=== PATIENT | male | born 1975 | race African-American/Black ===

== ENCOUNTER 2017-10-23 10:27 | Emergency (ER) | payer SELFPAY ==
--- NOTE | 2017-10-23 12:56 | RAD ---
THREE VIEWS RIGHT HAND: DATE: 10/23/17. HISTORY: Right hand injury. FINDINGS: There is no evidence of a fracture, dislocation, or other osseous abnormality involving the right son d. IMPRESSION: No acute osseous abnormality. POS: PEDRO LUIS
== END 2017-10-23 11:14 | disposition home or self-care (01) ==
LOC: ERS 10:27
DX: S60.221A Contusion of right hand, initial encounter (principal); I10 Essential (primary) hypertension; F17.210 Nicotine dependence, cigarettes, uncomplicated; W22.01XA Walked into wall, initial encounter

== ENCOUNTER 2018-05-25 03:54 | Emergency (ER) | payer BC, SELFPAY ==
[2018-05-25] MEDS ORDERED: Metoclopramide HCl 10 MG/2 ML VIAL ONE (04:31)
[2018-05-25] MEDS ORDERED: diphenhydrAMINE 50 MG/ML VIAL ONE (04:31)
[2018-05-25] MEDS ORDERED: Ondansetron PF 4 MG/2 ML Vial ONE (04:51)
[2018-05-25 04:53] LABS: #Basophils 0.1 thou/uL (0.0-0.2); #Eosinphils 0.1 thou/uL (0.0-0.7); #Lymphocytes 2.8 thou/uL (1.20-3.40); #Monocytes 0.6 thou/uL (0.11-0.59); #Neutrophils 2.8 thou/uL (1.40-6.50); %Basophils 2.3 % (0.0-1.0); %Lymphocytes 43.5 % (21.0-51.0); %Monocytes 9.5 % (0.0-10.0); %Neutrophils 43.8 % (42.0-75.0); Hemoglobin 15.6 g/dL (14.0-18.0); Mean Corpuscular HGB CONC 30.9 g/dL (32.0-36.0); Mean Corpuscular Hemoglobin 29.9 pg (27.0-31.0); Mean Corpuscular Volume 96.7 fL (78.0-98.0); Mean Platelet Volume 9.2 fL (7.4-10.4); Platelet Count 279 thou/uL (130-400); RBC Distribution Width 11.7 % (11.5-14.5); Red Blood Cell (RBC) Count 5.21 mill/uL (4.70-6.10); White Blood Cell (WBC) Count 6.4 thou/uL (4.8-10.8)
[2018-05-25 04:57] LABS: PTT 26.8 SEC (22.9-36.1); Prothrombin Time 13.5 SEC (12.0-14.7)
[2018-05-25 05:13] LABS: ALT (SGPT) 23 U/L (8-55); AST (SGOT) 38 U/L (5-34); Alkaline Phosphatase 106 U/L (40-150); Anion Gap 15 mmol/L (10-20); BUN (Urea Nitrogen) 9 mg/dL (8.9-20.6); Bilirubin, Total 0.5 mg/dL (0.2-1.2); Calc. Creatinine Clearance 0 mL/min (70-130); Calcium 9.5 mg/dL (7.8-10.44); Carbon Dioxide 27 mmol/L (22-29); Chloride 108 mmol/L (98-107); Estimated GFR-MDRD 85; Globulin 3.3 g/dL (2.4-3.5); Glucose 87 mg/dL (70-105); Potassium 4.1 mmol/L (3.5-5.1); Protein, Total 7.3 g/dL (6.0-8.3); Sodium 146 mmol/L (136-145)
[2018-05-25] MEDS ORDERED: Lisinopril 10 MG TAB ONE (05:35)
[2018-05-25] MEDS ORDERED: Acetaminophen 500 MG TAB ONE (05:35)
--- NOTE | 2018-05-25 07:34 | CT ---
CTA OF THE HEAD WITH AND WITHOUT CONTRAST: INDICATION: History of headache and neck pain and stiffness. COMPARISON: None. FINDINGS: There is an area of subcortical hypodensity involving the left frontal lobe on image 23 of series 2 w ithout appreciable enhancement is nonspecific. Additional focus of subcortical hypodensity is seen w ithin the right frontal lobe on image 20 of series 2. There are small areas of hypodensity involving the subinsular cortex on the left on image 19 and image 18 of series 2. No acute intracranial hemor rhage or hydrocephalus is present. Septum pellucidum and third ventricle are midline. No hemodynamically significant stenosis, occlusion, or aneurysmal formation is evident. There are ro bust posterior communicating arteries bilaterally. IMPRESSION: 1. Nonspecific small areas of subcortical white matter hypodensity may reflect chronic small-vessel white matter ischemic change. These areas have grown slightly more pronounced in appearance from the 2014 CT examination from [facility]. Would recommend consideration for a foll owup MRI of the brain without and without contrast for further characterization. No overt abnormal e nhancement seen within this region on the postcontrast images. 2. No hemodynamically significant stenosis, occlusion, or aneurysmal formation demonstrated. 3. No acute intracranial hemorrhage or hydrocephalus. POS: BH
== END 2018-05-25 06:50 | disposition home or self-care (01) ==
LOC: ERS 03:54
DX: I10 Essential (primary) hypertension (principal); R51 Headache; F17.210 Nicotine dependence, cigarettes, uncomplicated
CPT/HCPCS: 36415; 70496; 80053; 85025; 85610; 85730; 93005; 96365; 96375; J1200; J2405; J2765

== ENCOUNTER 2018-11-30 23:36 | Inpatient (IN) | payer BC ==
[2018-11-30] MEDS ORDERED: niCARdipine 20MG In NaCl 20 MG/200 ML BAG ONE (23:57)
--- NOTE | 2018-12-01 | CT ---
CT head noncontrast HISTORY: Altered mental status. Headache. COMPARISON: 05/25/2018. FINDINGS: Centered at the superior aspect of the right basal ganglia is a large very heterogeneous an d lobulated predominantly hyperdense fluid collection measuring up to 6.9 cm length by 2.5 cm width. It is surrounded by vasogenic edema and diffuse cerebral edema. Diffuse effacement of the vent ricular system. Leftward shift of the septum pellucidum by approximately 4 mm. IMPRESSION: Large acute right basal ganglia hematoma. Consistent with hypertensive etiology. Severe diffuse cerebral edema. Findings were called to Dr. Meza in the emergency department at 2354 hours. Code CR.
[2018-12-01 00:03] LABS: #Basophils 0.1 thou/uL (0.0-0.2); #Lymphocytes 2.2 thou/uL (1.20-3.40); #Monocytes 0.9 thou/uL (0.11-0.59); #Neutrophils 4.5 thou/uL (1.40-6.50); %Basophils 1.3 % (0.0-1.0); %Eosinophils 0.5 % (0.0-10.0); %Lymphocytes 28.9 % (21.0-51.0); %Monocytes 11.6 % (0.0-10.0); %Neutrophils 57.7 % (42.0-75.0); Hemoglobin 14.7 g/dL (14.0-18.0); Mean Corpuscular HGB CONC 32.4 g/dL (32.0-36.0); Mean Corpuscular Hemoglobin 30.1 pg (27.0-31.0); Mean Platelet Volume 9.9 fL (7.4-10.4); Platelet Count 183 thou/uL (130-400); RBC Distribution Width 11.7 % (11.5-14.5); Red Blood Cell (RBC) Count 4.87 mill/uL (4.70-6.10); White Blood Cell (WBC) Count 7.7 thou/uL (4.8-10.8)
[2018-12-01] MEDS ORDERED: Midazolam HCl 5 mg/ml Vial ONE (00:05)
[2018-12-01] MEDS ORDERED: Succinylcholine Chloride 20 MG/ML 10 ml SYRINGE FS ONE (00:05)
[2018-12-01 00:14] LABS: ALT (SGPT) 20 U/L (8-55); AST (SGOT) 28 U/L (5-34); Albumin 3.8 g/dL (3.5-5.0); Alkaline Phosphatase 97 U/L (40-150); Anion Gap 11 mmol/L (10-20); BUN (Urea Nitrogen) 17 mg/dL (8.9-20.6); Bilirubin, Total 0.4 mg/dL (0.2-1.2); CK (CPK) 220 U/L (30-200); Calc. Creatinine Clearance 0 mL/min (70-130); Calcium 8.9 mg/dL (7.8-10.44); Carbon Dioxide 24 mmol/L (22-29); Chloride 110 mmol/L (98-107); Estimated GFR-MDRD Greater than 90; Globulin 2.8 g/dL (2.4-3.5); Glucose 104 mg/dL (70-105); Potassium 3.9 mmol/L (3.5-5.1); Protein, Total 6.6 g/dL (6.0-8.3); Sodium 141 mmol/L (136-145)
[2018-12-01] MEDS ORDERED: fentaNYL Citrate/PF 2,000 MCG in Sodium Chloride 0.9% 60 ML IV SCH ×2 (00:17→02:47)
[2018-12-01] MEDS ORDERED: Dexamethasone 10 MG/ML VIAL ONE (00:34)
[2018-12-01 00:35] LABS: PTT 28.2 SEC (22.9-36.1); Prothrombin Time 12.7 SEC (12.0-14.7)
[2018-12-01] MEDS ORDERED: Fentanyl 100 MCG/2 ML VIAL ONE (00:35)
[2018-12-01 00:40] LABS: Lactic Acid 1.1 mmol/L (0.5-2.2)
[2018-12-01] MEDS ORDERED: Propofol 500 MG/50 ML VIAL ONE (00:43)
[2018-12-01] MEDS ORDERED: Propofol 1,000 MG/100 ML VIAL IV ONE (00:43)
[2018-12-01 00:54] LABS: Bilirubin Negative (Negative); Blood, Urine Negative (Negative); Clarity Clear (Clear); Glucose, Urine (Dipstick) Normal (Negative); Leukocyte Negative Leu/uL (Negative); Nitrite Negative (Negative); Protein, Urine (Dipstick) 10 mg/dL (Neg-Trace); Urobilinogen Normal mg/dL (Less than 2)
[2018-12-01 01:04] LABS: Amphetamine Not Detected (NotDetected); Barbiturates Screen Not Detected (NotDetected); Benzodiazepine Screen Not Detected (NotDetected); Cocaine Metabolite Screen Not Detected (NotDetected); Medtox Control Line Valid? VALID (VALID); Medtox Reader # READER 1; Methadone Not Detected (NotDetected); Methamphetamine Not Detected (NotDetected); Opiate Screen Not Detected (NotDetected); Oxycodone Screen Not Detected (NotDetected); Phencyclidine (PCP) Not Detected (NotDetected); THC/Cannabinoid Screen Not Detected (NotDetected); Tricyclic Screen Not Detected (NotDetected)
[2018-12-01] MEDS ORDERED: Ondansetron ODT 4 MG TAB SL PRN (02:11)
[2018-12-01] MEDS ORDERED: Ondansetron PF 4 MG/2 ML Vial IVP PRN (02:11)
[2018-12-01] MEDS ORDERED: Propofol 1,000 MG/100 ML VIAL IV PRN (02:12)
[2018-12-01] MEDS ORDERED: Propofol BOLUS 1,000 MG/100 ML VIAL IV PRN ×2 (02:12→02:47)
[2018-12-01] MEDS ORDERED: Lactated Ringer's 1,000 ML IV SCH (02:15)
[2018-12-01] MEDS ORDERED: Acetaminophen 325 MG TAB PO PRN (02:28)
[2018-12-01] MEDS ORDERED: Acetaminophen 650 MG Suppository PR PRN (02:28)
[2018-12-01] MEDS ORDERED: Ventilator Sedation Protocol 1 EACH FS SCH (02:30)
[2018-12-01] MEDS ORDERED: DISCONTINUE PREVIOUS NARCOTIC PAIN MEDICATIONS AND BENZODIAZEPINES FS SCH (02:47)
[2018-12-01] MEDS ORDERED: Fentanyl BOLUS 250 ML IVPB PRN (02:47)
[2018-12-01] MEDS ORDERED: Lorazepam 2 MG/ML VIAL SLOW IVP PRN (02:47)
[2018-12-01] MEDS: niCARdipine 25 MG in Sodium Chloride 0.9% 250 ML 240 ML IVPB PRN ×2 (04:09→06:10)
[2018-12-01] MEDS: Propofol 1,000 MG/100 ML VIAL IV PRN ×4 (05:12→21:53)
[2018-12-01 06:33] LABS: Anion Gap 15 mmol/L (10-20); BUN (Urea Nitrogen) 14 mg/dL (8.9-20.6); Calc. Creatinine Clearance 172 mL/min (70-130); Calcium 9.5 mg/dL (7.8-10.44); Carbon Dioxide 20 mmol/L (22-29); Chloride 108 mmol/L (98-107); Estimated GFR-MDRD Greater than 90; Glucose 137 mg/dL (70-105); Potassium 3.5 mmol/L (3.5-5.1); Sodium 139 mmol/L (136-145)
[2018-12-01 06:39] LABS: Hemoglobin 15.5 g/dL (14.0-18.0); Lymphocytes 4 % (21-51); MDiff Complete? YES; Mean Corpuscular HGB CONC 31.5 g/dL (32.0-36.0); Mean Corpuscular Hemoglobin 29.6 pg (27.0-31.0); Mean Corpuscular Volume 93.9 fL (78.0-98.0); Mean Platelet Volume 10.3 fL (7.4-10.4); Monocytes 2 % (0-10); Neutrophil 94 % (42-75); Platelet Count 178 thou/uL (130-400); Platelet Morphology Comment Appears Adequate; RBC Distribution Width 11.7 % (11.5-14.5); RBC Morphology Normal; Red Blood Cell (RBC) Count 5.24 mill/uL (4.70-6.10); White Blood Cell (WBC) Count 14.2 thou/uL (4.8-10.8)
--- NOTE | 2018-12-01 07:09 | CON ---
DATE OF CONSULTATION: HISTORY OF PRESENT ILLNESS: Mr. Olivier is a 42-year-old gentleman who was brought to the emergency department this morning with stroke like symptoms. The patient's family states that he was last known normal at 7:00 a.m. this morning. The patient stated he had a fall at about 9:00 a.m. this morning, however, the patient's family found him down this evening. Unable to get him up and called EMS. EMS arrived. He was A and O x3, but had left-sided upper and lower extremity deficits. In transport, the patient's blood pressure, systolic, was 202/119, 30 of labetalol was given. Speech started to deteriorate en route. Per ER doctor, the patient was able to follow commands on the right when he was 1st brought in. Speech was poor and started to have some respiratory dysfunction. He was intubated. CT of the head was performed showing a large intraparenchymal hemorrhage. Neurosurgery was consulted. When I arrived, the patient has been intubated and heavily sedated. He is resisting restraints significantly on the right side, right upper and lower extremities, moving, continues to not follow commands, but has good strength in the right upper and lower extremities and it is hard to restrain him. There is no movement on the left side. He has a gag reflex. His pupils are round and reactive, the left is slightly larger than the right. His blood pressure was in the 190s when I arrived. Nicardipine has been started and it is now in the 150s. REVIEW OF SYSTEMS: Unable to obtain the review of systems. PAST MEDICAL HISTORY: Consists of hypertension. The patient is noncompliant with medications. PAST SURGICAL HISTORY: Unable to obtain. SOCIAL HISTORY: The patient drinks socially. Denies drug use. Currently uses tobacco. Smokes cigarettes. Lives at home with family. ALLERGIES: NO KNOWN DRUG ALLERGIES. MEDICATIONS: Lisinopril. PHYSICAL EXAMINATION: VITAL SIGNS: Blood pressure 183/92, heart rate 65, respirations 20, temperature 97.3, O2 saturations 95% on room air. CONSTITUTIONAL: The patient is awake. He is afebrile. He is hypertensive. HEENT. Head is normocephalic and atraumatic. Pupils are round and reactive to light. Left is slightly larger than the right. Moist mucous membranes. RESPIRATIONS: The patient is on the ventilator, but symmetric chest rise. EXTREMITIES: The patient has no motion in left upper or lower extremity even to noxious stimuli. Right upper and lower extremities, he is moving both with normal range of motion. Not following commands, but good strength. He has normal range of motion in hip and knee. Good medical territory manager strength. NEUROLOGIC: The patient is awake. The patient is GCS 10 . He has no motor reactions on the left upper or lower extremity. Movement in right upper and lower extremities with normal range of motion and strength. He has a positive gag reflex. Pupils are reactive to light. Left is slightly larger than the right. Positive doll's eyes. Opens eyes spontaneously. IMAGING: CT of the brain, large acute right basal ganglial hematoma consistent with hypertensive etiology with diffuse edema. ASSESSMENT AND PLAN: Mr. Olivier is a 42-year-old male with a hypertensive intraparenchymal hemorrhage. He is going to be admitted to the hospital. We are going to bring his blood pressure down ideally under 140, get regular neuro checks. We will get a repeat CT in the morning. The patient is not on any blood thinners. Job ID: [id number]
--- NOTE | 2018-12-01 07:20 | HP ---
CODE STATUS: Full code. TIME OF EVALUATION: 1:00 a.m. CHIEF COMPLAINT: Stroke like symptoms. HISTORY OF PRESENT ILLNESS: This is a 42-year-old male patient with past medical history of HTN, non compliance. The patient came to the hospital after having stroke like symptoms. As per EMS report, patient informed them on arrival to the scene that he had fell around 9:00 a.m. with no loss of consciousness at that time. The family called 911 tonight when the patient was found down in his home and was initially hypertensive with blood pressure of 202 /119 with left-sided deficit, initially alert and oriented, answering questions. En route, the patient's speech changed and then became unable to speak. The patient labetalol, was complaining of chest pain and headache. Last time seen normal around 7:00 a.m. The patient mentation was deteriorating in the ER. The patient was unable to protect airways and got intubated. The patient was sedated. Blood pressure was still high, started on Cardene drip. CT showed intracranial hemorrhage. Neurosurgery has been called and the plan is to admit the patient to the floor. Final discussion is still pending. We will follow recommendations from Neurosurgery. REVIEW OF SYSTEMS: Unable to obtain. The patient is intubated and sedated. PAST MEDICAL HISTORY: The patient has a history of hypertension, being noncompliant. PAST SURGICAL HISTORY: No surgical history. PSYCHIATRIC HISTORY: No previous psych history. SOCIAL HISTORY: The patient drinks socially. Denies drug use. Smokes cigarettes. The patient uses drugs, lives at home. No smoking history. It has been reported the patient had used PCP in the past, that part of history is not totally clear at this point. KNOWN ALLERGIES: No known drug allergies. REPORTED MEDICATIONS: Unable to obtain. PHYSICAL EXAMINATION: VITAL SIGNS: On presentation, blood pressure 183/92 with heart rate 65, respiratory rate was 20, temperature 97.3, oxygen saturation 95% on mechanical ventilation. Blood pressure got down after sedation and Cardene drip. GENERAL APPEARANCE: The patient is intubated and sedated by the time of my examination. He is getting oxygenation and is moving, does not follow commands. The left side is compromised with hemiplegia. HEENT: The patient has exophthalmos, moist oral mucosa. Anicteric. No JVD. RESPIRATORY: Bilateral air entry. No rales. No wheezes. Symmetric expansion. CARDIOVASCULAR: The patient is hypertensive. Normal rate, regular rhythm. No murmurs. No gallop. No edema. ABDOMEN: Soft. Normal bowel sounds. MUSCULOSKELETAL: Baseline range of motion and strength. SKIN: Warm and intact. No pallor. No rash. No redness. Capillary refill seems to be intact. NEURO: The patient has left-sided weakness and is sedated, occasionally agitated when he runs out of sedation. PSYCH: Unable to obtain. The patient is intubated, sedated. IMAGING: EKG was reviewed. The patient has normal sinus rhythm with a rate of 94 with no ectopics. Conduction is normal. WA 180, QRS 74, QT corrected 452. Radiology interpretation, head CT showed large acute right basal ganglia hematoma consistent with hypertensive etiology. Severe diffuse cerebral edema. Chest, lungs appear not well oxygenated. Findings consistent with some pulmonary vascular congestion. LABORATORY DATA: Reviewed. The patient has white count 7.7, hemoglobin 14.7, MCV 93, platelet count 183. Coagulation, PT 12.7, INR 1.0, PTT 28.2. Chemistry; sodium 141, potassium 3.9, chloride 110, carbon dioxide 24, anion gap 11, BUN 17, creatinine 0.95, GFR greater than 90, glucose 104, calcium 8.9. LFTs were negative. CK 200. Troponin negative x1. Serum total protein 6.6. Urine was done, was negative. Drug screen was done, was negative. ASSESSMENT AND PLAN: The patient will be placed in the hospital with follow medical problems. 1. Hypertensive emergency with intracranial bleed. The patient has been sedated , has been placed on Cardene drip. He is currently intubated, will be in ICU. We will continue to control blood pressure overnight. cardene drip, improve sedation. 2. Intracranial bleeding. This problem is being followed by Neurosurgery. We will follow recommendations. rest as above 3. Respiratory failure with inability to protect airway secondary to acute hemorrhagic stroke. The patient got intubated, has been on the vent, seems to be stable at this point. Consult Pulmonary for further recommendations. 4. Morbidly obese. The patient is to lose weight. 5. Mildly elevated CK. This is likely secondary to being lying on the floor for few hours, not really significant. We will monitor and treat accordingly. 6. Acute encephalopathy secondary to intracranial bleed. We will treat underlying condition. 7. History of noncompliance. This needs to be addressed with the patient if the patient recovers from current insult. 8. Deep venous thrombosis prophylaxis. 9. Seizure prevention. The patient has been started on Keppra by Neurosurgery. Critical care time> 35 min use in bedside assessment, stabilization of patient, medication reconciliation, review and elaboration of records Job ID: [id number] MTDD
[2018-12-01 07:27] LABS: Actual Bicarbonate (HCO3a) 21.6 mEq/L (22-28); Base Excess (BEa) -0.7 mEq/L (-2.0 to +3.0); CO2 Tension 30.1 mmHg (35.0-45.0); Calcium, Ionized 1.21 mmol/L (1.12-1.30); Carboxyhemoglobin (COHb) 1.8 gm% (0.0-3.0); Hemoglobin (Hb) 15.8 g/dL (14.0-18.0); O2 Tension (PaO2) 64.9 mmHg (80.0-100.0); Potassium - ABG Lab 3.43 mmol/L (3.70-5.30); pH, Arterial 7.47 (7.35-7.45)
--- NOTE | 2018-12-01 07:36 | CT ---
CT BRAIN WITHOUT CONTRAST: Date: 12/01/18 INDICATION: Follow-up intraparenchymal hemorrhage. COMPARISON: Prior exam dated 11/30/18 at 2351 hours. FINDINGS: The intraparenchymal hemorrhage, when accounting for slight differences in plane of imaging, is relat ively stable in size. It previously measured 6.9 x 2.5 cm, now measures 6.0 x 3.1 cm with surrounding vasogenic edema. The degree of vasogenic edema is more pronounced than on the prior exam. There is w orsening right to left midline shift of 7 mm. Remote lacunar infarction involving the left caudate he ad is stable. No hydrocephalus is evident. Basilar cisterns are patent. Skull and extracranial soft t issues appear within normal limits. IMPRESSION: Worsening vasogenic edema surrounding an intraparenchymal hematoma centered within the region of righ t basal ganglia. There is worsening right to left midline shift at 7 mm. Findings corresponded with PEDRO LUIS [place], neurosurgery, via [facility], at 0517 hours on 0 12/01/18. CODE CR. POS: ROHAN
[2018-12-01 07:55] LABS: ALV-art Gradient 253.975 (0-20); Puncture Site L.R.
--- NOTE | 2018-12-01 08:06 | RAD ---
RADIOGRAPH CHEST 1 VIEW: DATE: 12/01/2018 TIME: 12:56 AM HISTORY: 42-year-old male status post intubation COMPARISON: 06/24/2015 FINDINGS: New endotracheal tube with distal tip 3.5 cm superior to kye. New esophagogastric tube, distal tip outside [id number]. Very low lung volumes. Increased interstitial markings diffusely. No pneumothorax identified. Patchy streaky pulmonary densities at left lung base. Nonspecific. IMPRESSION: 1. Status post intubation. 2. Nonspecific pulmonary densities at left base: Atelectasis versus aspiration versus pneumonia.
[2018-12-01] MEDS: Famotidine/PF 20 mg/2ml Vial SLOW IVP SCH ×2 (09:29→21:53)
--- NOTE | 2018-12-01 10:55 | PRG ---
DATE OF SERVICE: 12/01/2018 I personally examined the patient, reviewed imaging records and agreed with notes of Hien Ray PA-C, dated on 11/30/2018. Briefly, Soy Howard is a 42-year-old gentleman, who was found down by his family, brought to the emergency department, where a CT examination revealed an intraparenchymal hemorrhage in the right base and centered in the right basal ganglia. There was no extension to the cortical surface. There was mass effect from the hemorrhage, but the basal cisterns were open. There was some right-to- left shift. It is very purposeful in the emergency department. He began having some slurred speech. He was intubated and after intubation, was fighting his restraints purposefully. Overnight, he has been started on propofol and fentanyl, both cloud the neurological examination. Nicardipine drip was administered to keep his blood pressure under control. I have seen him in this morning and 125 mcg of fentanyl running in and 30 mL of propofol. In spite of all the sedation medication, he does respond to stimulus to the chest. The right is moving and the left did not move very much for me. Given the shape, location, and size of the hemorrhage, I think Mr. Olivier is likely to survive this. I would consider decompressive craniectomy for deteriorating neurological examination, clot evacuation, in my view, would not offer him significant neurological improvement, but could be contemplated if we are going to proceed with surgery. For now, I am going to recommend that we have serial neurological examinations done without the clotting influence of fentanyl. If he localizes briskly and fights all his restraints, then I think he has enough neurological function that we can continue to follow. We are going to have to avoid any hyponatremia and for worsening neurological examination, we could consider ICP pressure monitor or hyperosmolar therapy. If we can get to 72 hours, then I think we will get through the window of the maximal vasogenic edema. Job ID: [id number] [facility]
[2018-12-01] MEDS: niCARdipine 50 MG in Sodium Chloride 0.9% 250 ML 230 ML IVPB PRN ×2 (11:06→20:02)
[2018-12-01] MEDS: Sodium Chloride 0.9% 1,000 ML IV SCH ×2 (11:06→17:50)
--- NOTE | 2018-12-01 12:51 | CON ---
DATE OF CONSULTATION: 12/01/2018 CONSULTING PHYSICIAN: Zacharyist . REASON FOR CONSULTATION: Ventilator management. The following encompasses 45 minutes of critical care time. HISTORY OF PRESENT ILLNESS: This is a 42-year-old male, who presented to the hospital with acute onset of left-sided weakness. He was found to be hypertensive with a blood pressure systolic over 200. He was found to have a right parietal parenchymal hemorrhage. He was intubated due to deteriorating mental status. Nurse tells me earlier this morning he was moving his right side without difficulty and was writing notes, but he has subsequently been sedated for agitation. Neurosurgery has seen the patient, but as of yet has not put any type of drain. PAST MEDICAL HISTORY: Hypertension. PAST SURGICAL HISTORY: None. PSYCHIATRIC HISTORY: None. SOCIAL HISTORY: Social drinker. Smokes cigarettes. MEDICATIONS: Prior to admission, not known. ALLERGIES: UNKNOWN. REVIEW OF SYSTEMS: Unobtainable because the patient is currently intubated. PHYSICAL EXAMINATION: VITAL SIGNS: Temperature 98.3, pulse 87, blood pressure 138/71, and O2 saturation 97%. Weight 275 pounds. HEENT: Pupils are reactive. Sclerae are anicteric. Oropharynx clear. NECK: No adenopathy or JVD. CHEST: Clear without wheezing or rhonchi. CARDIAC: S1 and S2 regular without audible murmur. ABDOMEN: Soft, nontender, and nondistended. EXTREMITIES: No clubbing, cyanosis, or edema. DIAGNOSTIC DATA: CT of the head shows a large right parietal hemorrhage, which is enlarged and there is midline shift. White blood cell count is 14.2, hematocrit 49.3, and platelet count 178. PH of 7.47, pCO2 of 30, pO2 of 65 on SIMV rate 24, tidal volume 500, PEEP 5, pressure support 10, and FiO2 of 50%. Sodium 135, potassium 3.5, chloride 108, CO2 of 20, BUN 14, creatinine 0.9, and glucose 137. Chest x-ray demonstrates ET tube in proper position. There is some component of pulmonary edema bilaterally. ASSESSMENT: 1. Right parenchymal brain hemorrhage. 2. Hypertension. 3. Acute respiratory failure, requiring mechanical ventilation. PLAN: 1. Continue supportive care with mechanical ventilation. 2. Nicardipine drip for blood pressure control with goal systolic less than 140. 3. Further input from Neurosurgery. 4. DVT prophylaxis with Pepcid. 5. GI prophylaxis with SCDs given that the patient cannot take anticoagulation. 6. Prognosis guarded. Job ID: [id number]
--- NOTE | 2018-12-01 13:23 | PDOC.EVN ---
Event Note - Event Note Event Note: Seen and examined. Sedated and mechanically ventilated. Still on cardene infusion. Continue current treatment.
[2018-12-02] MEDS: Propofol 1,000 MG/100 ML VIAL IV PRN ×2 (03:14→23:18)
[2018-12-02] MEDS: niCARdipine 50 MG in Sodium Chloride 0.9% 250 ML 230 ML IVPB PRN ×3 (05:22→23:18)
[2018-12-02] MEDS: Morphine 2 MG/ML SYRINGE SLOW IVP PRN ×2 (05:26→10:26)
[2018-12-02 07:22] LABS: Anion Gap 12 mmol/L (10-20); BUN (Urea Nitrogen) 11 mg/dL (8.9-20.6); Calc. Creatinine Clearance 176 mL/min (70-130); Calcium 9.3 mg/dL (7.8-10.44); Carbon Dioxide 21 mmol/L (22-29); Chloride 113 mmol/L (98-107); Estimated GFR-MDRD Greater than 90; Glucose 120 mg/dL (70-105); Potassium 3.4 mmol/L (3.5-5.1); Sodium 143 mmol/L (136-145)
[2018-12-02 07:23] LABS: Actual Bicarbonate (HCO3a) 18.8 mEq/L (22-28); Base Excess (BEa) -2.5 mEq/L (-2.0 to +3.0); Calcium, Ionized 1.19 mmol/L (1.12-1.30); Carboxyhemoglobin (COHb) 1.8 gm% (0.0-3.0); Hemoglobin (Hb) 16.1 g/dL (14.0-18.0); O2 Tension (PaO2) 66.1 mmHg (80.0-100.0); Potassium - ABG Lab 3.33 mmol/L (3.70-5.30); pH, Arterial 7.49 (7.35-7.45)
[2018-12-02 07:28] LABS: ALV-art Gradient 187.475 (0-20); CO2 Tension 25.3 mmHg (35.0-45.0); Puncture Site RRA
--- NOTE | 2018-12-02 07:45 | PRG ---
DATE OF SERVICE: 12/02/2018 I saw Mr. Olivier in his hospital room this morning. He was intubated. The T-max of 99.4. His blood pressures have been in the 140s to 150s. Propofol is running at 15 mL. In spite of this sedating medication, he follows commands. He clearly raised his thumb on the right for me. He wiggled his fingers and toes, and he understood language. The left side was not moving for me today. CT scan was ordered this morning, which I reviewed. The size of the clot is the same. There is some surrounding vasogenic edema that may have increased slightly. I do not see a sodium level from this morning. Mr. Olivier should not be getting any hypotonic fluids at all. We should keep his sodium in the normal to high normal range. I do not see any indication for surgery as surgical evacuation of a basal ganglia hemorrhage without cortical extension, does not typically produce any improved results compared to medical management and there is risk of the operation. If, however, there is progressive neurological decline, surgery is a life-saving maneuver. Job ID: [id number] MTDD
--- NOTE | 2018-12-02 08:09 | CT ---
PRELIMINARY REPORT/[facility]/EMERGENCY AFTER HOURS PROCEDURE: EXAM: CT Head Without Contrast EXAM DATE/TIME: 12/02/2018 4:17 AM CLINICAL HISTORY: 42 years old, male; Condition or disease; Patient HX: F/u iph TECHNIQUE: Imaging protocol: Computed tomography of the head without contrast. COMPARISON: CT Brain WO Con 12/01/2018 4:57 AM FINDINGS: Brain: This stable large right-sided intraparenchymal hematoma with surrounding edema. Diffuse cerebral edema is also unchanged compared to the prior study. Midline shift: 9 mm leftward midline shift is not significantly changed compared to the prior study allowing for differences in technique and position. Ventricles: Normal. No ventriculomegaly. Bones/joints: Unremarkable. No acute fracture. Sinuses: Visualized sinuses are unremarkable. No fluid levels. Mastoid air cells: Visualized mastoid air cells are well aerated. Orbits: Bilateral globe proptosis. No extraocular muscle thickening. Soft tissues: Unremarkable. IMPRESSION: 1. This stable large right-sided intraparenchymal hematoma with surrounding edema. 2. 9 mm leftward midline shift is not significantly changed compared to the prior study allowing for differences in technique and position. 3. Diffuse cerebral edema is also unchanged compared to the prior study. 4. Bilateral globe proptosis. No extraocular muscle thickening. Thank you for allowing us to participate in the care of your patient. Dictated and Authenticated by: Gallo Chaves MD 12/02/2018 4:36 AM Central Time ([place] & [place]) FINAL REPORT: CT BRAIN: PROVIDED CLINICAL HISTORY: Follow-up intracranial hemorrhage. COMPARISON: 12/01/2018. FINDINGS/IMPRESSION: Agree with the preliminary interpretation given by GLADYS. Transcribed Date/Time: 12/02/2018 8:18 AM
[2018-12-02] MEDS: Sodium Chloride 0.9% 1,000 ML IV SCH (09:04)
[2018-12-02] MEDS: Famotidine/PF 20 mg/2ml Vial SLOW IVP SCH ×2 (09:12→20:55)
--- NOTE | 2018-12-02 10:00 | PRG ---
DATE OF SERVICE: 12/02/2018 TIME SPENT: 35 minutes of critical care time. SUBJECTIVE: The patient remains intubated on mechanical ventilation. He is banging on the bed indicating that he wants his tube out. OBJECTIVE: VITAL SIGNS: His temperature is 99.4, blood pressure 156/94, pulse 84, O2 saturation 95%. GENERAL: He is currently on propofol and nicardipine. HEENT: Pupils reactive. Extraocular movements intact. Oropharynx clear. NECK: No adenopathy. No JVD. LUNGS: Clear anteriorly. CARDIAC: S1, S2. Regular. ABDOMEN: Soft and nontender. EXTREMITIES: No edema. LABORATORY DATA: Sodium 143, potassium 3.4, chloride 113, CO2 of 21, BUN 11, creatinine 0.9, glucose 120. PH of 7.49, pCO2 of 25, and pO2 of 66 on SIMV rate of 24, tidal volume 500, PEEP 5, pressure support 10, FiO2 40%. White blood cell count 14.2 hematocrit 49.3, and platelet count 178. ASSESSMENT: 1. Right parietal intraparenchymal bleed. 2. Respiratory failure requiring mechanical ventilation-secondary to the patient being obtunded when he was admitted. 3. Hypertensive emergency. PLAN: We will go ahead and extubate the patient and see how he does. He is continuing hypertonic IV fluids per the Neurosurgical team. We will continue to monitor his chemistry. Job ID: [id number]
[2018-12-02] MEDS ORDERED: cloNIDine 0.1 MG TAB PO PRN (10:16)
[2018-12-02] MEDS ORDERED: PROPOFOL 200 MG/20 ML VIAL ONE (10:24)
[2018-12-02] MEDS ORDERED: Dexamethasone 20 MG/5 ML VIAL ONE (10:24)
[2018-12-02] MEDS ORDERED: Vecuronium 10 MG VIAL ONE (10:24)
[2018-12-02] MEDS ORDERED: Rocuronium Bromide 10 MG/ML (10ML VIAL) ONE (10:24)
[2018-12-02] MEDS: hydrALAZINE 20 MG/ML VIAL SLOW IVP PRN (10:26)
[2018-12-02] MEDS ORDERED: Potassium Chloride 40 MEQ in Sodium Chloride 0.9% 250 ML 250 ML IVPB SCH (10:30)
[2018-12-02] MEDS ORDERED: Sodium Chloride 0.9% 1,000 ML IV SCH (13:15)
--- NOTE | 2018-12-02 15:09 | CT ---
EXAM: CT Brain WO Con PROVIDED CLINICAL HISTORY: Altered mental status COMPARISON: 12/02/2018 4:19 AM FINDINGS: Right-sided parenchymal hematoma is redemonstrated with stable mass effect and about 1 cm of right to left midline shift and appearing similar in size. New effacement of the basilar cisterns compatible with developing right uncal and transtentorial herniation. Diffuse effacement of the cereb ral sulci is redemonstrated. The extracranial soft tissues and osseous structures demonstrate no significant interval change. The ventricular system remains nondilated. IMPRESSION: Development of right uncal and transtentorial herniation.
--- NOTE | 2018-12-02 15:21 | OP ---
DATE OF PROCEDURE: 12/02/2018 The patient was extubated earlier today. Around 02:15 p.m., I was called by the nurse saying that his right pupil was blown. He subsequently gone to CT scan, the results of which is pending. I saw him as soon as he got back to the floor. He was more obtunded and his right pupil was definitely dilated compared to the left. I made a decision to reintubate him for airway protection. He was intubated with 7.5 endotracheal tube via the [employer] at the first attempt without difficulty. No sedation was given for the intubation. He did demonstrate a gag reflex. He will be put back on sedation. Blood gas will be checked in a few minutes and we will try to keep him with pCO2 around 25-30. Job ID: [id number]
[2018-12-02 15:37] LABS: Sodium 143 mmol/L (136-145)
[2018-12-02 15:44] LABS: Actual Bicarbonate (HCO3a) 20.5 mEq/L (22-28); Base Excess (BEa) -1.5 mEq/L (-2.0 to +3.0); CO2 Tension 28.2 mmHg (35.0-45.0); Calcium, Ionized 1.17 mmol/L (1.12-1.30); Carboxyhemoglobin (COHb) 1.3 gm% (0.0-3.0); Hemoglobin (Hb) 15.7 g/dL (14.0-18.0); O2 Tension (PaO2) 81.8 mmHg (80.0-100.0); Potassium - ABG Lab 3.55 mmol/L (3.70-5.30); pH, Arterial 7.48 (7.35-7.45)
[2018-12-02 15:46] LABS: Puncture Site RRA
[2018-12-02] MEDS ORDERED: MANNITOL 20% IVPB SCH (16:00)
[2018-12-02] MEDS ORDERED: Lidocaine 0.5%/Epinephrine 1:200,000 50 ml Vial ONE (16:13)
[2018-12-02] MEDS ORDERED: Fentanyl 100 MCG/2 ML VIAL ONE (16:19)
--- NOTE | 2018-12-02 16:34 | PRG ---
DATE OF SERVICE: 12/02/2018 I Came to the hospital to see Mr. Olivier. Evidently, decision was made this morning to extubate Mr. Olivier. Did relatively well through the morning, but in the earliest hours of the afternoon, became more somnolent. Neurosurgery was called when he had large nonreactive pupil, some extensor posturing. A CT scan was done and mannitol was given. I have come in to speak with the family. EN route , the patient was reintubated. The mannitol has been administered and the CT results are available. Mr. Olivier's neurological examination is clouded by the medications required for intubation, but the report of his neurological function before intubation was quite poor. CT examination is different. Although the hemorrhage area may be slightly larger, the basal cisterns are now crowded by the uncus of the right temporal lobe. This is new and different. The cisterns were opened previously. I spoke to the patient's aunt, the patient's niece, the patient's sister, and a family friend in our conference room in our critical care unit. I described the neurological decline though the necessity is to consider a craniectomy to give room for swelling. I did not offer hope of a return of full neurological function. 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 Even that seems remote. However, strictly life-saving procedure I think the craniectomy would have to be done quickly as the end of the mannitol effect will come in an hour or two. The family would like me to proceed with the operation. Informed Consent: I discussed indications, risks, benefits, alternatives, and expected outcomes from a large right-sided craniectomy. The risks discussed included, but were not limited to, bleeding, infection, CSF leak, brain damage, stroke, paralysis, seizures, permanent neurological deficit, worsening neurological deficit, cardiopulmonary complications of anesthesia and . They understand the risks and want to proceed. We will make arrangements for the surgery to happen right away. Job ID: [id number] MTDD
[2018-12-02] MEDS ORDERED: Gelfilm 1 EA Packet ONE (16:43)
[2018-12-02] MEDS ORDERED: levETIRAcetam 1000 MG/100 ML PREMIX BAG ONE (17:03)
[2018-12-02] MEDS ORDERED: HYDROmorphone 2 MG/ML VIAL ONE (17:21)
--- NOTE | 2018-12-02 18:11 | PDOC.HOSPP ---
- Subjective Encounter Date: 12/02/18 Encounter Time: 11:30 Subjective: Mr. Olivier was seen today in follow-up of hypertensive emergency with intracranial hemorrhage. He was just recently extubated, and he is less response than earlier, and his heart rate and respiratory t=rate has been extremely variable. - Objective Vital Signs & Weight: Vital Signs (12 hours) Temp Pulse Resp BP Pulse Ox 12/02/18 16:00 98.3 F 95 12/02/18 14:51 100 166/132 H 12/02/18 12:03 104 H 12/02/18 12:00 99.3 F 30 H 96 12/02/18 11:04 137 H 22 H 94 L 12/02/18 11:03 94 L 12/02/18 10:26 87 185/95 H 12/02/18 08:00 99.0 F 96 12/02/18 06:49 87 151/91 H Weight Admit Weight 275 lb 9.245 oz Weight 273 lb 9.498 oz Most Recent Monitor Data Heart Rate from ECG 122 NIBP 129/79 NIBP BP-Mean 95 Respiration from ECG 28 SpO2 95 I&O: 12/01/18 12/02/18 12/03/18 06:59 06:59 06:59 Intake Total 404 2859 Output Total 1000 1970 0237 Balance -892 -2975 -8337 Result Diagrams: 12/01/18 05:44 12/02/18 15:18 Hospitalist ROS - Medication Medications: Active Medications Generic Name Dose Route Start Last Admin Trade Name Freq PRN Reason Stop Dose Admin Famotidine 20 mg 12/01/18 09:00 12/02/18 09:12 Pepcid SLOW IVP 20 mg BID ALON Administration Hydralazine HCl 10 mg 12/02/18 10:16 12/02/18 10:26 Apresoline SLOW IVP 10 mg Q4H PRN Administration SBP > 180 and HR < 70 Levetiracetam 500 mg/ Device 100 mls @ 200 mls/hr 12/01/18 09:00 12/02/18 09: 12 IVPB 100 mls BID ALON Administration Nicardipine HCl 50 mg/ Sodium 250 mls @ 0 mls/hr 12/01/18 07:21 12/02/18 13: 32 Chloride IVPB 250 mls INF PRN Administration SBP>140 Protocol Titrate Sodium Chloride 1,000 mls @ 50 mls/hr 12/02/18 13:15 12/02/18 13:29 Normal Saline 0.9% IV 1,000 mls .Q20H ALON Administration Mannitol 625 mls @ 0 mls/hr 12/02/18 16:00 12/02/18 16:13 Mannitol 20% IVPB 12/02/18 21:00 625 mls NOW ALON Administration As Directed Morphine Sulfate 2 mg 12/01/18 02:47 12/02/18 10:26 Morphine SLOW IVP 12/31/18 02:47 2 mg Q1H PRN Administration BREAKTHROUGH PAIN/Agitation Propofol 1,000 mg 12/01/18 02:47 12/02/18 03:14 Diprivan IV 12/31/18 02:47 1,000 mg INF PRN Administration TO ACHIEVE GOAL RASS Protocol - Exam Eye: PERRL (pin-point and sluggish), anicteric sclera Heart: RRR, no murmur, no gallops, no rubs, normal peripheral pulses Respiratory: CTAB, no wheezes, no rales, no ronchi, normal chest expansion Gastrointestinal: soft, non-tender, non-distended, normal bowel sounds, no palpable masses, no hepatomegaly, no splenomegaly, no bruit, no guarding Extremities: no cyanosis, no clubbing, no edema Neurological - other findings: he does not follow commands, moves allextremities Hosp A/P (1) Hypertensive emergency Code(s): I16.1 - HYPERTENSIVE EMERGENCY Status: Acute (2) Intracranial hemorrhage Code(s): I62.9 - NONTRAUMATIC INTRACRANIAL HEMORRHAGE, UNSPECIFIED Status: Acute (3) Acute respiratory failure Code(s): J96.00 - ACUTE RESPIRATORY FAILURE, UNSP W HYPOXIA OR HYPERCAPNIA Status: Acute - Plan * Hypertensive Emergency- he has been weaned off the Cardene drip * Will start Scheduled Amlodipine as well as PRN medications * Respiratory instability- continue to monitor in the ICU- continue as per PCCM recommendations
[2018-12-02] MEDS: Sodium Chloride 256 MEQ in Sterile Water Injection 936 ML IV SCH (20:54)
[2018-12-02] MEDS: CEFAZOLIN 2 GM in Premix Bag 1 BAG IVPB SCH (20:55)
--- NOTE | 2018-12-02 22:05 | OP ---
DATE OF PROCEDURE: 12/02/2018 TRIMMING OPERATOR: Hien Ray PA-C PREOPERATIVE INDICATION: Prevent . PREOPERATIVE DIAGNOSIS: Intracerebral hemorrhage with increased intracranial pressure and herniation syndrome. POSTOPERATIVE DIAGNOSIS: Intracerebral hemorrhage with increased intracranial pressure and herniation syndrome. PROCEDURE PERFORMED: Right-sided decompressive craniectomy, frontotemporoparietal. PREOPERATIVE MEDICATIONS: Ancef 2 g IV. DRAIN NUMBER: One. DRAIN TYPE: 10-Bengali Sergei. DESCRIPTION OF PROCEDURE: The patient was brought to the operating room. The patient had been re-intubated in the ICU. General anesthesia was induced. The patient was carefully positioned on the operating table with his right shoulder bumped and his head turned to the left. The head was supported by a donut-shaped headrest. Hair was removed with electric clippers from the right side of the scalp. We planned a curvilinear incision starting at the root of the zygoma, curving posteriorly behind the ear and then toward the midline of the forehead. Under our planned incision, we infused local anesthetic. The scalp was sterilely prepped and draped. We opened our incision with a 10-blade knife and controlled bleeding with bipolar and monopolar cautery. We used monopolar cautery to fold a scalp flap forward with the temporalis muscle. I preserved a large branch of the superior temporal artery infolding the flap forward. We placed jaxon holes at the root of zygoma at the posterior inferior parietal bone, the posterior parietal bone, the superior parietal bone, the frontal bone in front of the coronal suture, and the frontal keyhole. We stripped the dura from the undersurface of the bone. We fashioned a very large frontotemporoparietal craniotomy flap. The dura opened anteriorly with the removal of the flap. The brain was well decompressed with the obvious exception of the frontal lobe, where the frontal lobe was seemed to be herniating around the anterior portion of the craniotomy flap. We elected to make the flap bigger and we dissected down to the orbital ridge using a side-cutting bit and a footplate. We removed more frontal bone. With this removal, the brain relaxed. A small ecchymotic area of the frontal lobe was not expanding and all bleeding was controlled. We irrigated copiously with bacitracin irrigation. The brain swelled out of the craniectomy appropriately, but not uncontrollably. None of the edges of the bone were indenting the brain any longer. We irrigated with bacitracin irrigation. We used a wire pass bit and drilled holes along the medial aspect of the craniotomy flap using 4-0 silk tack-up sutures. We controlled some venous epidural bleeding along the midline. This was easily done. We scored the dura back in multiple directions allowing for relaxation of the brain in all directions. We then brought a silastic sheet into the field and cut it to fit our craniectomy defect. We scored the silastic so we could approximate the curve surface of the brain. We then closed the scalp in a single layer with vertical mattress sutures. Before closure, we tunneled the drain posteriorly through a separate stab incision. We applied sterile dressings. We marked out on the dressing that the flap was missing. The patient was transferred to the transport cart. This was a clean case, no contamination. Job ID: [id number]
[2018-12-03] MEDS: CEFAZOLIN 2 GM in Premix Bag 1 BAG IVPB SCH ×3 (04:33→20:30)
[2018-12-03 05:13] LABS: #Lymphocytes 0.8 thou/uL (1.20-3.40); #Monocytes 0.9 thou/uL (0.11-0.59); #Neutrophils 12.2 thou/uL (1.40-6.50); %Basophils 0.1 % (0.0-1.0); %Eosinophils 0.1 % (0.0-10.0); %Lymphocytes 5.6 % (21.0-51.0); %Monocytes 6.7 % (0.0-10.0); %Neutrophils 87.5 % (42.0-75.0); Hemoglobin 13.3 g/dL (14.0-18.0); Mean Corpuscular HGB CONC 31.9 g/dL (32.0-36.0); Platelet Count 194 thou/uL (130-400); RBC Distribution Width 12.2 % (11.5-14.5); Red Blood Cell (RBC) Count 4.44 mill/uL (4.70-6.10)
[2018-12-03 05:37] LABS: Anion Gap 13 mmol/L (10-20); BUN (Urea Nitrogen) 15 mg/dL (8.9-20.6); Calc. Creatinine Clearance 136 mL/min (70-130); Calcium 8.2 mg/dL (7.8-10.44); Carbon Dioxide 22 mmol/L (22-29); Chloride 112 mmol/L (98-107); Estimated GFR-MDRD 75; Glucose 125 mg/dL (70-105); Potassium 3.8 mmol/L (3.5-5.1); Sodium 143 mmol/L (136-145)
--- NOTE | 2018-12-03 08:21 | CT ---
PRELIMINARY REPORT/[facility]/EMERGENCY AFTER HOURS PROCEDURE: EXAM: CT Head Without Contrast EXAM DATE/TIME: 12/03/2018 3:35 AM CLINICAL HISTORY: 42 years old, male; Screening exam; Prior surgery; Surgery date: Post-operative (0-2 days); Patient H X: S/P craniotomy TECHNIQUE: Imaging protocol: Computed tomography of the head without contrast. COMPARISON: CT Brain WO Con 12/02/2018 4:17 AM FINDINGS: Tubes, catheters and devices: Right scalp drain present. Brain: Persistent large right basal ganglia intraparenchymal hemorrhage appears mildly decreased in size compared to the prior study with multiple small adjacent intraparenchymal hemorrhages and surrounding edema. Mild herniation of the right brain parenchyma into the craniectomy defect. Midline shift: Degree of midline shift has decreased to approximately 4 mm. Ventricles: Normal. No ventriculomegaly. Bones/joints: Interval large right sided craniectomy. Sinuses: Sphenoid sinus fluid levels. Mastoid air cells: Visualized mastoid air cells are well aerated. Soft tissues: Unremarkable. IMPRESSION: 1. Interval large right sided craniectomy. 2. Persistent large right basal ganglia intraparenchymal hemorrhage appears mildly decreased in size compared to the prior study with multiple small adjacent intraparenchymal hemorrhages and surrounding edema. 3. Degree of midline shift has decreased to approximately 4 mm. 4. Mild herniation of the right brain parenchyma into the craniectomy defect. Thank you for allowing us to participate in the care of your patient. Dictated and Authenticated by: Gallo Chaves MD 12/03/2018 3:57 AM Central Time ([place] & [place]) FINAL REPORT: CT BRAIN: PROVIDED CLINICAL HISTORY: Intracranial hemorrhage status post craniotomy. COMPARISON: 12/02/2018. FINDINGS/IMPRESSION: Agree with the preliminary interpretation given by [facility]. Transcribed Date/Time: 12/03/2018 9:16 AM
[2018-12-03] MEDS: Famotidine/PF 20 mg/2ml Vial SLOW IVP SCH ×2 (08:57→20:30)
[2018-12-03] MEDS: Amlodipine 10 MG TAB PO SCH (08:58)
--- NOTE | 2018-12-03 09:11 | PRG ---
DATE OF SERVICE: 12/03/2018 Mr. Olivier is one day out from right-sided craniectomy for control of ICP. He has been on propofol and intubated since surgery. His CAT scan has already been done this morning. When I examined Mr. Olivier after 15 to 30 minutes off his propofol, he withdraws the right upper extremity, the left extends to stimulus. He does not follow commands, although the elbow flexes with some stimulus to the sternum on the right side, he does not quite meet criteria for localizing. He is semi-purposeful when stimulated and begins to appear agitated and move around with this right upper and lower extremity in bed. Sodium this morning is 143. The CAT scan shows good decompression of the basal cisterns, which was the goal of the operation. The plan is to keep Mr. Olivier's blood pressure under control, to make sure his sodium does not dip, to remain intubated at least for the next 4 or 5 days and then talk to the family about tracheostomy and gastrostomy. We will leave the flap off and replace it in about 3 months. Job ID: [id number]
--- NOTE | 2018-12-03 09:41 | PRG ---
DATE OF SERVICE: 12/03/2018 SUBJECTIVE: This patient had to go for craniotomy yesterday afternoon after decompensating. After he was extubated, he is currently on mechanical ventilation and sedated. He is able to move his right side spontaneously. He was not moving his left side. OBJECTIVE: VITAL SIGNS: His temperature is 98.9, pulse 85, and blood pressure 129/58. He is currently on propofol drip. Intake for 24 hours 1583 and output 2385. HEENT: Unremarkable. Pupils are sluggishly reactive, but his right pupil is no longer dilated. Oropharynx is clear. NECK: No adenopathy or JVD. CHEST: Clear to auscultation. CARDIAC: S1 and S2, regular. ABDOMEN: Soft and nontender. EXTREMITIES: No clubbing, cyanosis, or edema. LABORATORY DATA: White blood cell count 14, hematocrit 41.8, platelet count 194. ABG is pending. Sodium 143, potassium 3.8, chloride 112, CO2 of 22, BUN 15, creatinine 1.2, and glucose 125. ASSESSMENT: 1. Intracranial hemorrhage. 2. Acute respiratory failure, requiring mechanical ventilation. 3. Malignant hypertension. PLAN: 1. Keep intubated until mental status improves. 2. Initiate enteral tube feeds. 3. Continue to monitor daily labs. 4. Blood pressure control with nicardipine. Job ID: [id number]
[2018-12-03] MEDS: Propofol 1,000 MG/100 ML VIAL IV PRN ×3 (10:30→22:37)
[2018-12-03] MEDS: niCARdipine 50 MG in Sodium Chloride 0.9% 250 ML 230 ML IVPB PRN ×2 (11:25→18:38)
--- NOTE | 2018-12-03 11:50 | PDOC.HOSPP ---
- Subjective Encounter Date: 12/03/18 Encounter Time: 11:49 Subjective: Mr. Olivier was seen today in follow-up of hypertensive crisis with intracranial bleed. He went for emergent craniotomy last night. He is re-intubated and sedated. - Objective Vital Signs & Weight: Vital Signs (12 hours) Temp Pulse Pulse Pulse Resp BP BP 12/03/18 11:23 90 109/51 L 12/03/18 10:00 21 H 12/03/18 08:58 87 134/61 12/03/18 08:50 87 85 131/60 12/03/18 08:00 100.9 F H 12/03/18 07:55 22 H 12/03/18 06:33 91 134/61 12/03/18 06:00 20 12/03/18 04:00 98.9 F 20 12/03/18 02:00 20 12/03/18 00:00 98.6 F 20 BP Pulse Ox Pulse Ox Pulse Ox 12/03/18 11:23 12/03/18 10:00 12/03/18 08:58 12/03/18 08:50 132/60 94 L 94 L 12/03/18 08:00 12/03/18 07:55 94 L 12/03/18 06:33 12/03/18 06:00 12/03/18 04:00 12/03/18 02:00 12/03/18 00:00 Weight Admit Weight 275 lb 9.245 oz Weight 282 lb 6.594 oz Most Recent Monitor Data Heart Rate from ECG 88 NIBP 134/75 NIBP BP-Mean 94 Respiration from ECG 28 SpO2 93 I&O: 12/02/18 12/03/18 12/04/18 06:59 06:59 06:59 Intake Total 2859 1583 100 Output Total 4025 6955 180 Balance -1161 -802 -80 Result Diagrams: 12/03/18 05:00 12/03/18 05:00 Hospitalist ROS - Medication Medications: Active Medications Generic Name Dose Route Start Last Admin Trade Name Freq PRN Reason Stop Dose Admin Amlodipine Besylate 10 mg 12/03/18 09:00 12/03/18 08:58 Norvasc PO 10 mg DAILY ALON Administration Famotidine 20 mg 12/01/18 09:00 12/03/18 08:57 Pepcid SLOW IVP 20 mg BID ALON Administration Hydralazine HCl 10 mg 12/02/18 10:16 12/02/18 10:26 Apresoline SLOW IVP 10 mg Q4H PRN Administration SBP > 180 and HR < 70 Levetiracetam 500 mg/ Device 100 mls @ 200 mls/hr 12/01/18 09:00 12/03/18 08: 57 IVPB 100 mls BID ALON Administration Nicardipine HCl 50 mg/ Sodium 250 mls @ 0 mls/hr 12/01/18 07:21 12/03/18 11: 25 Chloride IVPB 250 mls INF PRN Administration SBP>140 Protocol Titrate Sodium Chloride 256 meq/ 1,000 mls @ 60 mls/hr 12/02/18 16:00 12/02/18 20:54 Sterile Water IV 1,000 mls INF ALON Administration Cefazolin Sodium/Dextrose 2 gm 50 mls @ 100 mls/hr 12/02/18 20:00 12/03/18 11 :42 / Device IVPB 50 mls 0400,1200,2000 ALON Administration Morphine Sulfate 2 mg 12/01/18 02:47 12/02/18 10:26 Morphine SLOW IVP 12/31/18 02:47 2 mg Q1H PRN Administration BREAKTHROUGH PAIN/Agitation Propofol 1,000 mg 12/01/18 02:47 12/02/18 23:18 Diprivan IV 12/31/18 02:47 1,000 mg INF PRN Administration TO ACHIEVE GOAL RASS Protocol - Exam Eye: PERRL, anicteric sclera Heart: RRR, no murmur, no gallops, no rubs, normal peripheral pulses Respiratory: CTAB, no rales, normal chest expansion (coarse breath sounds) Gastrointestinal: soft, non-tender, non-distended, normal bowel sounds, no palpable masses, no hepatomegaly, no splenomegaly Extremities: no cyanosis, no clubbing, no edema Neurological: hemiplegia (left) Hosp A/P (1) Hypertensive emergency Code(s): I16.1 - HYPERTENSIVE EMERGENCY Status: Acute (2) Intracranial hemorrhage Code(s): I62.9 - NONTRAUMATIC INTRACRANIAL HEMORRHAGE, UNSPECIFIED Status: Acute (3) Acute respiratory failure Code(s): J96.00 - ACUTE RESPIRATORY FAILURE, UNSP W HYPOXIA OR HYPERCAPNIA Status: Acute - Plan * Hypertensive Emergency with Intra-cranial bleed-he has been re-intubated, and had emergent craniotomy due to signs of right uncal and transtentorial herniation * He is back on the Cardene drip, and is also receiving Amlodipine via NG tube * He will remain intubated for several days * Nutritional support with tube feeding * GI Prophylaxis * DVT Prophylaxis with SCD's
[2018-12-03] MEDS: Acetaminophen 650 MG/20.3 ML UDCUP PO PRN ×3 (12:30→22:36)
[2018-12-03] MEDS: Sodium Chloride 256 MEQ in Sterile Water Injection 936 ML IV SCH (14:38)
[2018-12-03] MEDS ORDERED: Sodium Bicarbonate Tab 325 MG TAB PER TUBE PRN (20:08)
[2018-12-03] MEDS ORDERED: Pancrelipase DR 12000 1 CAP FS PRN (20:08)
[2018-12-04] MEDS: CEFAZOLIN 2 GM in Premix Bag 1 BAG IVPB SCH ×3 (03:20→20:23)
[2018-12-04] MEDS: Propofol 1,000 MG/100 ML VIAL IV PRN ×3 (03:21→20:39)
[2018-12-04] MEDS: Acetaminophen 650 MG/20.3 ML UDCUP PO PRN ×3 (03:21→16:15)
[2018-12-04] MEDS: niCARdipine 50 MG in Sodium Chloride 0.9% 250 ML 230 ML IVPB PRN ×3 (03:52→20:22)
[2018-12-04] MEDS: Sodium Chloride 256 MEQ in Sterile Water Injection 936 ML IV SCH (03:53)
[2018-12-04 05:01] LABS: #Lymphocytes 1.6 thou/uL (1.20-3.40); #Monocytes 1.8 thou/uL (0.11-0.59); #Neutrophils 8.6 thou/uL (1.40-6.50); %Basophils 0.1 % (0.0-1.0); %Eosinophils 0.2 % (0.0-10.0); %Monocytes 14.7 % (0.0-10.0); %Neutrophils 72.1 % (42.0-75.0); Hemoglobin 9.8 g/dL (14.0-18.0); Mean Corpuscular HGB CONC 31.8 g/dL (32.0-36.0); Mean Corpuscular Hemoglobin 30.4 pg (27.0-31.0); Mean Corpuscular Volume 95.4 fL (78.0-98.0); Mean Platelet Volume 9.3 fL (7.4-10.4); Platelet Count 141 thou/uL (130-400); RBC Distribution Width 11.7 % (11.5-14.5); Red Blood Cell (RBC) Count 3.24 mill/uL (4.70-6.10)
[2018-12-04 05:04] LABS: Anion Gap 10 mmol/L (10-20); BUN (Urea Nitrogen) 18 mg/dL (8.9-20.6); Calc. Creatinine Clearance 196 mL/min (70-130); Calcium 7.3 mg/dL (7.8-10.44); Carbon Dioxide 20 mmol/L (22-29); Chloride 118 mmol/L (98-107); Estimated GFR-MDRD Greater than 90; Glucose 94 mg/dL (70-105); Potassium 3.4 mmol/L (3.5-5.1); Sodium 145 mmol/L (136-145)
[2018-12-04 06:52] LABS: Actual Bicarbonate (HCO3a) 19.5 mEq/L (22-28); Base Excess (BEa) -4.2 mEq/L (-2.0 to +3.0); CO2 Tension 31.8 mmHg (35.0-45.0); Calcium, Ionized 1.16 mmol/L (1.12-1.30); Hemoglobin (Hb) 12.2 g/dL (14.0-18.0); O2 Tension (PaO2) 75.9 mmHg (80.0-100.0); Potassium - ABG Lab 3.55 mmol/L (3.70-5.30); pH, Arterial 7.41 (7.35-7.45)
[2018-12-04 07:09] LABS: Puncture Site ALINE
[2018-12-04 07:10] LABS: Peep/CPAP 7.5 cmH2O
--- NOTE | 2018-12-04 07:42 | PRG ---
DATE OF SERVICE: 12/04/2018 I saw Mr. Olivier in ICU this morning. No events have been reported. There is a T-max of 100.8 degrees Fahrenheit yesterday at noon. Blood pressures have been 130s to 140s. In spite of propofol running at 15 mL per hour, Mr. Olivier localizes to the sternal rub and I believe he held off his right thumb to me, when I asked him to do so. The right side moves well. The left does not. The drain output is significant, but it is now clear and it is mostly CSF. We can remove the drain today. Job ID: [id number] MTDD
[2018-12-04] MEDS ORDERED: Furosemide 40 MG/4 ML VIAL SLOW IVP SCH (08:00)
[2018-12-04] MEDS: Amlodipine 10 MG TAB PO SCH (08:17)
[2018-12-04] MEDS: Famotidine/PF 20 mg/2ml Vial SLOW IVP SCH ×2 (08:18→20:32)
--- NOTE | 2018-12-04 08:30 | PRG ---
DATE OF SERVICE: 12/04/2018 TIME SPENT: 35 minutes critical time. The patient remains intubated on mechanical ventilation. He has had problems with desaturation this morning, the FiO2 had to be raised to 100%. PHYSICAL EXAMINATION: VITAL SIGNS: His temperature is 98.8, pulse 73, blood pressure 138/75, 24-hour intake 4374, output 1495 for positive fluid balance of 2879. He is currently on some hypertonic saline. He is also on tube feeds. Continuous propofol drips and continuous nicardipine drip. HEENT: Essentially unchanged. NECK: No JVD. LUNGS: Coarse breath sounds. CARDIAC: S1, S2. Regular. ABDOMEN: Soft, nontender. EXTREMITIES: Edematous. LABORATORY DATA: Sodium 145, potassium 3.4, chloride 118, CO2 of 20, BUN 18, creatinine 0.8, and glucose 94. White blood cell count 12, hematocrit 30.9, and platelet count 141. PH of 7.41, pCO2 of 31, pO2 of 75 on SIMV rate of 16, tidal volume 500, PEEP 7.5, pressure support 10, FiO2 55%. His x-ray showed low lung volumes, but no evidence of mucus plugging. ASSESSMENT: 1. Large intracranial hemorrhage requiring craniotomy for decompression. 2. Acute respiratory failure requiring mechanical ventilation. 3. Malignant hypertension. 4. Obstructive sleep apnea. PLAN: 1. I have put in a call to Dr. Wing to see if we need to continue the hypertonic saline as we are starting to run into volume problems. 2. I will give a dose of Lasix. 3. I have changed him over to bilevel ventilation. 4. Continue nicardipine for blood pressure control. 5. In this patient, I would favor early tracheostomy given the evident neurologic disability and severe OLEGARIO. Right now, his neurologic issues seems to be limited to a pre-profound left-sided hemiparesis. Further disposition to follow. Job ID: [id number]
--- NOTE | 2018-12-04 09:25 | RAD ---
CHEST 1 VIEW: HISTORY: Pneumonia. COMPARISON: Radiograph 12/01/2018. FINDINGS: The patient is intubated with enteric tube tip below the clavicles. Enteric tube tip below the diaph ragm but out of the field of view. Effusions are similar as well as bibasilar opacities. Mild inter hossein improvement of pulmonary edema. IMPRESSION: Interval improvement of pulmonary edema. Otherwise, similar examination of the chest. POS: CET
--- NOTE | 2018-12-04 16:48 | EKG ---
Test Reason : Blood Pressure : / mmHG Vent. Rate : 133 BPM Atrial Rate : 133 BPM P-R Int : 158 ms QRS Dur : 082 ms QT Int : 304 ms P-R-T Axes : 064 049 048 degrees QTc Int : 452 ms Sinus tachycardia with Premature atrial complexes Anteroseptal infarct (cited on or before 30-OCT-2014) Abnormal ECG Confirmed by BRYAN YHATT ([id number]) on 12/04/2018 4:47:59 PM Referred By: MAGGI Confirmed By:BRYAN HYATT
--- NOTE | 2018-12-04 18:04 | PDOC.HOSPP ---
- Subjective Encounter Date: 12/04/18 Encounter Time: 14:00 Subjective: Mr. Olivier was seen in follow-up of hypertensive emergency and intracranial hemorrhage. He is intubated. - Objective Vital Signs & Weight: Vital Signs (12 hours) Temp Pulse Resp BP Pulse Ox 12/04/18 16:00 100.1 F H 16 12/04/18 14:27 67 120/55 L 12/04/18 14:00 16 12/04/18 12:00 99.6 F 16 98 12/04/18 10:11 83 154/63 H 12/04/18 10:00 100.5 F H 16 12/04/18 08:17 75 135/80 12/04/18 08:00 100.8 F H 16 95 12/04/18 06:28 75 137/61 Weight Admit Weight 275 lb 9.245 oz Weight 283 lb 4.704 oz Most Recent Monitor Data Heart Rate from ECG 70 NIBP 134/76 NIBP BP-Mean 95 Respiration from ECG 28 SpO2 97 I&O: 12/03/18 12/04/18 12/05/18 06:59 06:59 06:59 Intake Total 1583 4374 150 Output Total 2385 1495 2595 Balance -808 2162 -2547 Result Diagrams: 12/04/18 03:30 12/04/18 03:30 Hospitalist ROS - Medication Medications: Active Medications Generic Name Dose Route Start Last Admin Trade Name Freq PRN Reason Stop Dose Admin Acetaminophen 650 mg 12/03/18 12:15 12/04/18 16:15 Tylenol Elixir PO 650 mg Q4H PRN Administration Headache/Fever/Mild Pain (1-3) Amlodipine Besylate 10 mg 12/03/18 09:00 12/04/18 08:17 Norvasc PO 10 mg DAILY ALON Administration Famotidine 20 mg 12/01/18 09:00 12/04/18 08:18 Pepcid SLOW IVP 20 mg BID ALON Administration Hydralazine HCl 10 mg 12/02/18 10:16 12/02/18 10:26 Apresoline SLOW IVP 10 mg Q4H PRN Administration SBP > 180 and HR < 70 Levetiracetam 500 mg/ Device 100 mls @ 200 mls/hr 12/01/18 09:00 12/04/18 08: 31 IVPB 100 mls BID ALON Administration Nicardipine HCl 50 mg/ Sodium 250 mls @ 0 mls/hr 12/01/18 07:21 12/04/18 16: 12 Chloride IVPB 250 mls INF PRN Administration SBP>140 Protocol Titrate Cefazolin Sodium/Dextrose 2 gm 50 mls @ 100 mls/hr 12/02/18 20:00 12/04/18 12 :26 / Device IVPB 50 mls 0400,1200,2000 ALON Administration Morphine Sulfate 2 mg 12/01/18 02:47 12/02/18 10:26 Morphine SLOW IVP 12/31/18 02:47 2 mg Q1H PRN Administration BREAKTHROUGH PAIN/Agitation Propofol 1,000 mg 12/01/18 02:47 12/04/18 08:34 Diprivan IV 12/31/18 02:47 1,000 mg INF PRN Administration TO ACHIEVE GOAL RASS Protocol - Exam Eye: PERRL, anicteric sclera Heart: RRR, no murmur, no gallops, no rubs, normal peripheral pulses Respiratory: CTAB, no wheezes, no rales, no ronchi, normal chest expansion, no tachypnea, normal percussion Gastrointestinal: soft, non-tender, non-distended, normal bowel sounds, no palpable masses, no hepatomegaly, no splenomegaly Extremities: no cyanosis, no clubbing, no edema Hosp A/P (1) Hypertensive emergency Code(s): I16.1 - HYPERTENSIVE EMERGENCY Status: Acute (2) Intracranial hemorrhage Code(s): I62.9 - NONTRAUMATIC INTRACRANIAL HEMORRHAGE, UNSPECIFIED Status: Acute (3) Acute respiratory failure Code(s): J96.00 - ACUTE RESPIRATORY FAILURE, UNSP W HYPOXIA OR HYPERCAPNIA Status: Acute - Plan * ICH - presumed hypertensive- he is s/p craniotomy * HTN- continue Cardene drip * It is anticipated that he will need to be intubated for some time- so he may need Trach and PEG soon * Nutritional support with tube feeding * GI Prophylaxis * DVT Prophylaxis with SCD's
[2018-12-04] MEDS: Sodium Chloride 0.9% 1,000 ML IV SCH (20:21)
[2018-12-05] MEDS: niCARdipine 50 MG in Sodium Chloride 0.9% 250 ML 230 ML IVPB PRN ×6 (01:01→23:52)
[2018-12-05] MEDS: Propofol 1,000 MG/100 ML VIAL IV PRN ×7 (01:04→23:54)
[2018-12-05] MEDS: CEFAZOLIN 2 GM in Premix Bag 1 BAG IVPB SCH (04:06)
[2018-12-05 05:18] LABS: #Lymphocytes 1.6 thou/uL (1.20-3.40); #Monocytes 1.5 thou/uL (0.11-0.59); #Neutrophils 8.9 thou/uL (1.40-6.50); %Basophils 0.4 % (0.0-1.0); %Eosinophils 0.4 % (0.0-10.0); %Lymphocytes 13.5 % (21.0-51.0); %Monocytes 12.5 % (0.0-10.0); %Neutrophils 73.3 % (42.0-75.0); Hemoglobin 11.3 g/dL (14.0-18.0); Mean Corpuscular HGB CONC 31.9 g/dL (32.0-36.0); Mean Corpuscular Hemoglobin 29.8 pg (27.0-31.0); Mean Corpuscular Volume 93.4 fL (78.0-98.0); Mean Platelet Volume 9.8 fL (7.4-10.4); Platelet Count 185 thou/uL (130-400); RBC Distribution Width 11.7 % (11.5-14.5); Red Blood Cell (RBC) Count 3.78 mill/uL (4.70-6.10); White Blood Cell (WBC) Count 12.1 thou/uL (4.8-10.8)
[2018-12-05 05:34] LABS: Anion Gap 11 mmol/L (10-20); BUN (Urea Nitrogen) 20 mg/dL (8.9-20.6); Calc. Creatinine Clearance 199 mL/min (70-130); Calcium 8.2 mg/dL (7.8-10.44); Carbon Dioxide 21 mmol/L (22-29); Chloride 114 mmol/L (98-107); Estimated GFR-MDRD Greater than 90; Glucose 109 mg/dL (70-105); Potassium 3.4 mmol/L (3.5-5.1); Sodium 143 mmol/L (136-145)
[2018-12-05 06:44] LABS: Actual Bicarbonate (HCO3a) 19.5 mEq/L (22-28); Base Excess (BEa) -2.9 mEq/L (-2.0 to +3.0); CO2 Tension 27.1 mmHg (35.0-45.0); Calcium, Ionized 1.14 mmol/L (1.12-1.30); Carboxyhemoglobin (COHb) 0.5 gm% (0.0-3.0); Hemoglobin (Hb) 11.8 g/dL (14.0-18.0); O2 Tension (PaO2) 88.6 mmHg (80.0-100.0); Potassium - ABG Lab 3.35 mmol/L (3.70-5.30); pH, Arterial 7.47 (7.35-7.45)
[2018-12-05 06:51] LABS: Puncture Site ALINE
[2018-12-05 06:52] LABS: ALV-art Gradient 198.375 (0-20)
--- NOTE | 2018-12-05 07:04 | PRG ---
DATE OF SERVICE: 12/05/2018 I saw Mr. Olivier in his ICU room this morning. He remains on the ventilator and propofol is running at 50 mL an hour. No events were reported overnight. His T-max was 100.8 degrees Fahrenheit recorded early yesterday afternoon. It is 99.4 overnight. His blood pressures have been in the 130s to 140s. Neurological examination is unchanged. With enough stimulation, he localizes with the right, he withdraws the left lower extremity. He extends the left upper extremity. When propofol is running slower, he could follow some commands by lifting his thumb. Mr. Olivier will need a trach and PEG this week. His fluids can be decreased or hep-locked. We will follow his sodium twice daily. Job ID: [id number] [facility]
[2018-12-05] MEDS: Famotidine 20 MG TAB PER TUBE SCH ×2 (08:22→21:19)
[2018-12-05] MEDS: Amlodipine 10 MG TAB PO SCH (08:23)
--- NOTE | 2018-12-05 08:32 | RAD ---
SINGLE VIEW CHEST: Date: 12/05/18 COMPARISON: 12/04/18. HISTORY: Pneumonia. FINDINGS: Single view of the chest shows an enlarged but stable cardiomediastinal silhouette. The endotracheal tube and NG tube are unchanged in position. There may be a small left pleural effusion. IMPRESSION: Stable exam. POS: [facility]
--- NOTE | 2018-12-05 09:01 | PRG ---
DATE OF SERVICE: 12/05/2018 A 35 minutes of critical care time. SUBJECTIVE: The patient remains intubated on mechanical ventilation, requiring bilevel. OBJECTIVE: VITAL SIGNS: Temperature is 99.4, pulse 86, and blood pressure 136/84. He is on a nicardipine drip at 10 mg/hour. He also continues on propofol. A 24-hour intake was 4501 and output 3690. Weight 279 pounds. HEENT: He has a bandage around his head. ET tube in place. NECK: No adenopathy or JVD. LUNGS: Clear anteriorly. CARDIAC: S1 and S2. Regular without murmur. ABDOMEN: Soft and nontender. EXTREMITIES: No clubbing or cyanosis. He has generalized edema throughout. LABORATORY DATA: White count 12.1, hematocrit 35.3, and platelet count 185. A pH of 7.47, pCO2 of 27, pO2 of 88 on bilevel rate 16, high pressure 28, low pressure 12, and FiO2 of 45%. Sodium 143, potassium 3.4, chloride 114, CO2 of 21, BUN 20, creatinine 0.8, and glucose 109. ASSESSMENT: 1. Intraparenchymal brain hemorrhage. 2. Respiratory failure, requiring mechanical ventilation. 3. Obstructive sleep apnea/Obesity hypoventilation syndrome. PLAN: 1. Need to speak with family regarding tracheostomy and PEG tube placement. 2. Continue enteral tube feeds. 3. Adjust mechanical ventilation settings. Job ID: [id number]
[2018-12-05] MEDS ORDERED: Potassium Chloride 20 MEQ in Premix Bag 1 BAG IVPB SCH (10:15)
[2018-12-05] MEDS ORDERED: Lidocaine 1% w/Epinephrine 1:100K 20 ML VIAL FS PRN (10:50)
[2018-12-05] MEDS ORDERED: Vecuronium 10 MG VIAL IV PRN (10:50)
[2018-12-05] MEDS ORDERED: Midazolam HCl 2 mg/2 ml Vial FS PRN (10:51)
[2018-12-05] MEDS ORDERED: Fentanyl 100 MCG/2 ML VIAL SLOW IVP PRN (10:51)
--- NOTE | 2018-12-05 14:06 | PDOC.HOSPP ---
- Subjective Encounter Date: 12/05/18 Encounter Time: 10:05 Subjective: Mr. Olivier was seen today in follow-up of hypertensive crisis with ICH. He is intubated and sedated. - Objective Vital Signs & Weight: Vital Signs (12 hours) Temp Pulse Resp BP Pulse Ox 12/05/18 12:00 17 12/05/18 10:11 85 156/75 H 12/05/18 10:00 17 12/05/18 08:23 72 146/66 H 12/05/18 08:00 24 H 98 12/05/18 06:18 77 143/71 H 12/05/18 06:00 16 12/05/18 04:00 99.4 F 16 12/05/18 02:51 81 133/78 Weight Admit Weight 275 lb 9.245 oz Weight 279 lb 8.738 oz Most Recent Monitor Data Heart Rate from ECG 77 NIBP 154/93 NIBP BP-Mean 113 Respiration from ECG 28 SpO2 100 I&O: 12/04/18 12/05/18 12/06/18 06:59 06:59 06:59 Intake Total 4374 4501 100 Output Total 1495 3690 580 Balance 2872 811 -990 Result Diagrams: 12/05/18 04:15 12/05/18 04:15 Hospitalist ROS - Medication Medications: Active Medications Generic Name Dose Route Start Last Admin Trade Name Freq PRN Reason Stop Dose Admin Acetaminophen 650 mg 12/03/18 12:15 12/04/18 16:15 Tylenol Elixir PO 650 mg Q4H PRN Administration Headache/Fever/Mild Pain (1-3) Amlodipine Besylate 10 mg 12/03/18 09:00 12/05/18 08:23 Norvasc PO 10 mg DAILY ALON Administration Famotidine 20 mg 12/05/18 09:00 12/05/18 08:22 Pepcid PER TUBE 20 mg BID ALON Administration Hydralazine HCl 10 mg 12/02/18 10:16 12/02/18 10:26 Apresoline SLOW IVP 10 mg Q4H PRN Administration SBP > 180 and HR < 70 Levetiracetam 500 mg/ Device 100 mls @ 200 mls/hr 12/01/18 09:00 12/05/18 08: 23 IVPB 100 mls BID ALON Administration Nicardipine HCl 50 mg/ Sodium 250 mls @ 0 mls/hr 12/01/18 07:21 12/05/18 12: 20 Chloride IVPB 250 mls INF PRN Administration SBP>140 Protocol Titrate Morphine Sulfate 2 mg 12/01/18 02:47 12/02/18 10:26 Morphine SLOW IVP 12/31/18 02:47 2 mg Q1H PRN Administration BREAKTHROUGH PAIN/Agitation Propofol 1,000 mg 12/01/18 02:47 12/05/18 12:20 Diprivan IV 12/31/18 02:47 1,000 mg INF PRN Administration TO ACHIEVE GOAL RASS Protocol - Exam Eye: PERRL, anicteric sclera Heart: RRR, no murmur, no gallops, no rubs, normal peripheral pulses Respiratory: CTAB, no wheezes, no rales, no ronchi, normal chest expansion Gastrointestinal: soft, non-tender, non-distended, normal bowel sounds, no palpable masses, no hepatomegaly, no splenomegaly, no bruit Extremities: no cyanosis, no clubbing, no edema Hosp A/P (1) Hypertensive emergency Code(s): I16.1 - HYPERTENSIVE EMERGENCY Status: Acute (2) Intracranial hemorrhage Code(s): I62.9 - NONTRAUMATIC INTRACRANIAL HEMORRHAGE, UNSPECIFIED Status: Acute (3) Acute respiratory failure Code(s): J96.00 - ACUTE RESPIRATORY FAILURE, UNSP W HYPOXIA OR HYPERCAPNIA Status: Acute - Plan * ICH - presumed hypertensive- he is s/p craniotomy * HTN- blood pressure has been creeping up- continue Cardene drip- will add Catapres - continue Amlodipine * Plan for Trach and PEG today * Nutritional support with tube feeding * GI Prophylaxis * DVT Prophylaxis with SCD's
[2018-12-05] MEDS ORDERED: Lidocaine 1% w/Epinephrine 1:100K 20 ML VIAL FS SCH (16:00)
[2018-12-05] MEDS: Sodium Chloride 0.9% 1,000 ML IV SCH (16:20)
--- NOTE | 2018-12-05 19:22 | OP ---
DATE OF PROCEDURE: 12/05/2018 PREOPERATIVE DIAGNOSES: 1. Acute intracerebral hemorrhage, status post right-sided decompressive craniectomy. 2. Acute posthemorrhagic respiratory failure. POSTOPERATIVE DIAGNOSES: 1. Acute intracerebral hemorrhage, status post right-sided decompressive craniectomy. 2. Acute posthemorrhagic respiratory failure. PROCEDURES PERFORMED: 1. Percutaneous tracheostomy tube placement. 2. Percutaneous endoscopic gastrostomy tube placement. ANESTHESIA: Deep sedation and local. INDICATIONS FOR PROCEDURE: This is a 42-year-old man, who is postoperative day #3 status post decompressive craniectomy to evacuate acute intracerebral hemorrhage. The patient is on mechanical ventilator support. I have been asked to place the percutaneous tracheostomy tube in anticipation of prolonged mechanical ventilator support. Additionally, percutaneous endoscopic gastrostomy tube is warranted for prolonged enteral nutritional supplementation. DESCRIPTION OF PROCEDURE: Informed consent was obtained from the patient's power of attorney law clerk. The patient was placed in supine position. He is on full mechanical ventilator support. He is adequately sedated with propofol by continuous infusion and was given fentanyl 100 mcg intravenously followed by vecuronium 10 mg intravenously. Anterior neck was then sterilely prepped and draped in usual fashion. The skin 2 fingerbreadths above the suprasternal notch was anesthetized with 1% lidocaine with epinephrine. A 1 cm vertical incision was made here using a 15 scalpel. Fiberoptic bronchoscope was introduced through the previous endotracheal tube and advanced to visualize the kye. The scope was withdrawn, transilluminating the anterior neck. An introducer needle was inserted through the incision and advanced through the anterior tracheal wall through which a guidewire was advanced into the distal tracheal lumen under direct vision. Needle was withdrawn over the guidewire. Anterior tracheal wall was sterilely dilated over the guidewire. Finally, a size 8 tracheostomy tube with introducer stylet and dilator were passed as a unit over the guidewire and advanced into the distal tracheal lumen. The tracheostomy tube was left in place withdrawing both the introducer catheter, dilator and guidewire as a unit. An inner cannula was then inserted through the tracheostomy tube. The cuff was inflated, and the patient was connected to mechanical ventilator support via newly placed tracheostomy tube noting good tidal volume. Tracheostomy tube was secured to anterior neck using 0 silk suture at two points. Trach dressings and tie were then applied. Bronchoscope was withdrawn with the previous endotracheal tube as a unit, visualizing the tracheostomy site from above with good hemostasis. Once the endotracheal tube was removed, the bronchoscope was reintroduced through the newly placed tracheostomy tube and advanced to visualize the kye. No active bleeding was noted here. The scope was withdrawn visualizing intact tracheobronchial mucosa. The patient tolerated the procedure without any apparent complications and remains hemodynamically stable following completion of procedure. We then directed attention to placement of the percutaneous endoscopic gastrostomy tube placement. Under new gown and gloves, the left upper quadrant was widely and sterilely prepped and draped in usual fashion. A mouth guard was put in place, and endoscope was introduced per oral, intubating the esophagus and the scope was directed with gentle insufflation into the gastric lumen, which was then insufflated. Scope was advanced first into the proximal duodenum. I did not see any peptic ulcerative disease. The scope was withdrawn into the gastric lumen, transilluminating the left upper quadrant in the area chosen for the placement of the gastrostomy tube. The skin here was anesthetized with 1% lidocaine. A stab incision was made using 11 scalpel. Introducer needle and catheter were advanced through this incision and placed in the gastric lumen under direct vision. An Endo-Snare was then advanced through the endoscope and using this to capture the introducer catheter. The needle was withdrawn, and guidewire was passed through this catheter and advanced into the gastric lumen. The guidewire was then snared and withdrawn with the endoscope as a unit per oral. The guidewire was then connected to a 20-Thai gastrostomy tube in the usual fashion. Distal end of the guidewire with the introducer catheter was withdrawn above the skin stab incision, leaving the mushroom end of the gastrostomy tube abutting the gastric mucosa under direct vision. The gastrostomy tube was then fashioned to length and secured to anterior abdominal wall at 4 cm with sterile dressings and antibiotic ointment underneath. The gastric lumen was then decompressed. The endoscope was withdrawn visualizing intact esophageal mucosa. The patient tolerated the procedure without any apparent complication and remains hemodynamically stable following completion of procedure. Job ID: [id number]
[2018-12-06] MEDS: Acetaminophen 650 MG/20.3 ML UDCUP PO PRN (00:31)
--- NOTE | 2018-12-06 00:32 | PDOC.EVN ---
Event Note - Event Note Event Note: Nursing called to say that patient had spiked fever to >101. Tylenol given. Cultures of urine, blood, and A line drawn. Per Dr. Bee, will start Zosyn empirically.
[2018-12-06] MEDS: Piperacillin/Tazobactam 3.375 GM in Sodium Chloride 0.9% 100 ML IVPB SCH ×4 (02:19→19:45)
[2018-12-06] MEDS: Propofol 1,000 MG/100 ML VIAL IV PRN (04:12)
[2018-12-06] MEDS: niCARdipine 50 MG in Sodium Chloride 0.9% 250 ML 230 ML IVPB PRN ×3 (04:16→20:27)
[2018-12-06 04:44] LABS: #Eosinphils 0.1 thou/uL (0.0-0.7); #Lymphocytes 1.7 thou/uL (1.20-3.40); #Monocytes 1.2 thou/uL (0.11-0.59); #Neutrophils 9.1 thou/uL (1.40-6.50); %Basophils 0.4 % (0.0-1.0); %Eosinophils 0.7 % (0.0-10.0); %Monocytes 9.8 % (0.0-10.0); %Neutrophils 75.1 % (42.0-75.0); Hemoglobin 11.1 g/dL (14.0-18.0); Mean Corpuscular HGB CONC 32.2 g/dL (32.0-36.0); Mean Corpuscular Hemoglobin 29.9 pg (27.0-31.0); Mean Platelet Volume 8.7 fL (7.4-10.4); Platelet Count 193 thou/uL (130-400); RBC Distribution Width 11.7 % (11.5-14.5); Red Blood Cell (RBC) Count 3.72 mill/uL (4.70-6.10); White Blood Cell (WBC) Count 12.2 thou/uL (4.8-10.8)
[2018-12-06 07:13] LABS: Actual Bicarbonate (HCO3a) 20.4 mEq/L (22-28); CO2 Tension 27.7 mmHg (35.0-45.0); Calcium, Ionized 1.15 mmol/L (1.12-1.30); Carboxyhemoglobin (COHb) 0.7 gm% (0.0-3.0); Hemoglobin (Hb) 11.8 g/dL (14.0-18.0); O2 Tension (PaO2) 90.1 mmHg (80.0-100.0); Potassium - ABG Lab 3.59 mmol/L (3.70-5.30); pH, Arterial 7.48 (7.35-7.45)
[2018-12-06 07:14] LABS: Puncture Site LINE
[2018-12-06 07:15] LABS: ALV-art Gradient 231.775 (0-20)
--- NOTE | 2018-12-06 07:45 | PRG ---
DATE OF SERVICE: 12/06/2018 I saw Mr. Olivier in the ICU this morning. He had a tracheostomy and a gastrostomy placed. He is breathing much more comfortably. His propofol is down to 10 mL an hour. On examination this morning, I see a T-max of over 101 degrees Fahrenheit. Blood pressures have been in the 130s to 140s and low 150s. With the propofol running, he follows commands. He held up two fingers. He held off his right thumb. He withdrew both lower extremities. Left upper extremity, extends. Mr. Olivier's neurological examination is stable. He is getting a significant amount of IV fluid and with all of his medications and I think we can Hep-Lock the maintenance fluid completely. The next step in his care is slowly weaning off sedation if tolerated and eventually placement in a nursing facility. Hopefully, he makes enough recovery to be a candidate for inpatient rehabilitation at some point. At three months, we will replace the bone flap. Job ID: [id number]
[2018-12-06] MEDS: Amlodipine 10 MG TAB PO SCH (08:35)
[2018-12-06] MEDS: Lisinopril 20 MG TAB PO SCH (08:38)
[2018-12-06] MEDS: Famotidine 20 MG TAB PER TUBE SCH ×2 (08:38→20:27)
--- NOTE | 2018-12-06 08:50 | RAD ---
PORTABLE CHEST: Date: 12/06/18 INDICATION: Pneumonia. CCU follow-up. COMPARISON: 12/05/18. FINDINGS: Tracheostomy device has been placed. NG tube has been removed. Left basilar opacification obscures th e left hemidiaphragm, unchanged in appearance from yesterday. Right lung remains clear and unchanged. Upper lung patrick are aerated and clear. IMPRESSION: Left basilar opacification again noted. No change from yesterday. POS: [facility]
[2018-12-06] MEDS ORDERED: cloNIDine 0.1mg/24 Hour PATCH TD SCH (09:00)
--- NOTE | 2018-12-06 09:34 | PRG ---
DATE OF SERVICE: 12/06/2018 TIME SPENT: 35 minutes critical care time. SUBJECTIVE: The patient remains on mechanical ventilation. He has tracheostomy and feeding tube placed yesterday. He is still on a little amount of propofol. PHYSICAL EXAMINATION: VITAL SIGNS: Temperature 98.8, pulse 82, blood pressure 137/87, O2 saturation 99%. HEENT: He has bandage over his head. NECK: No adenopathy or JVD. Trach in good position. LUNGS: Clear anteriorly. CARDIAC: S1, S2. Regular. ABDOMEN: Obese, soft, nontender. EXTREMITIES: No clubbing, cyanosis, or edema. IMAGING STUDIES: His chest x-ray shows no mass, effusion, or infiltrate. LABORATORY DATA: Sodium 143, potassium 3.4, chloride 114, CO2 of 20, BUN 20, creatinine 0.8, glucose 109. White blood cell count 12.2, hematocrit 34.6, and platelet count 193. PH of 7.48, pCO2 of 27, PO2 of 90 on bilevel rate 16, PEEP of 28/14, FiO2 of 50%. ASSESSMENT: 1. Brain bleed. 2. Malignant hypertension. 3. Acute respiratory failure requiring mechanical ventilation. PLAN: 1. Tracheostomy and feeding tube have been in place. I will begin weaning the ventilator. 2. Initiate tube feeds. 3. Minimize sedation. 4. Add antihypertensives. 5. Case management consult for LTAC placement. Job ID: [id number]
--- NOTE | 2018-12-06 10:48 | PRG ---
DATE OF SERVICE: 12/06/2018 SUBJECTIVE: Mr. Olivier is a 42-year-old man, who is postoperative day #1, status post percutaneous tracheostomy tube and percutaneous endoscopic gastrostomy tube placement. The patient remains on mechanical ventilator support. OBJECTIVE: VITAL SIGNS: Stable. HEENT: Tracheostomy site is intact, clean, dry. No hematoma present. ABDOMEN: Soft. Gastrostomy tube site is clean and dry. No active bleeding present. No drainage present. PLAN: The patient has remained hemodynamically stable following the procedures. The PEG tube is okay to use for tube feeds and medications at the discretion of the primary service. General Surgery will sign off this case at this time and be available to re-evaluate the patient on demand. Job ID: [id number]
--- NOTE | 2018-12-06 16:43 | PDOC.HOSPP ---
- Subjective Encounter Date: 12/06/18 Encounter Time: 11:20 Subjective: Mr. Olivier was seen today in follow-up of hypertensive crisis. He has had the Trach and PEG tube placed. - Objective Vital Signs & Weight: Vital Signs (12 hours) Temp Pulse Pulse Pulse Resp BP BP 12/06/18 16:00 10 L 12/06/18 15:36 103 H 12/06/18 15:00 99.3 F 12/06/18 14:00 10 L 12/06/18 13:31 78 12/06/18 12:00 100.1 F H 10 L 12/06/18 11:00 80 85 143/80 H 12/06/18 10:16 80 12/06/18 10:00 10 L 12/06/18 08:38 152/84 H 12/06/18 08:35 85 155/84 H 12/06/18 08:13 93 12/06/18 08:00 16 12/06/18 07:04 73 12/06/18 06:00 16 BP Pulse Ox Pulse Ox 12/06/18 16:00 12/06/18 15:36 12/06/18 15:00 12/06/18 14:00 12/06/18 13:31 12/06/18 12:00 12/06/18 11:00 138/78 96 96 12/06/18 10:16 12/06/18 10:00 12/06/18 08:38 12/06/18 08:35 12/06/18 08:13 12/06/18 08:00 12/06/18 07:04 12/06/18 06:00 Weight Admit Weight 275 lb 9.245 oz Weight 278 lb 0.046 oz Most Recent Monitor Data Heart Rate from ECG 87 NIBP 157/99 NIBP BP-Mean 118 Respiration from ECG 24 SpO2 94 I&O: 12/05/18 12/06/18 12/07/18 06:59 06:59 06:59 Intake Total 4501 3551 200 Output Total 3690 2135 800 Balance 811 1416 -600 Result Diagrams: 12/06/18 04:25 12/05/18 04:15 Additional Labs: Accuchecks 12/05/18 16:37 POC Glucose 193 H Hospitalist ROS - Medication Medications: Active Medications Generic Name Dose Route Start Last Admin Trade Name Freq PRN Reason Stop Dose Admin Acetaminophen 650 mg 12/03/18 12:15 12/06/18 00:31 Tylenol Elixir PO 650 mg Q4H PRN Administration Headache/Fever/Mild Pain (1-3) Amlodipine Besylate 10 mg 12/03/18 09:00 12/06/18 08:35 Norvasc PO 10 mg DAILY ALON Administration Clonidine 0.1 mg 12/06/18 09:00 12/06/18 09:06 [id number] Patch TD 0.1 mg Q7DAYS ALON Administration Famotidine 20 mg 12/05/18 09:00 12/06/18 08:38 Pepcid PER TUBE 20 mg BID ALON Administration Hydralazine HCl 10 mg 12/02/18 10:16 12/02/18 10:26 Apresoline SLOW IVP 10 mg Q4H PRN Administration SBP > 180 and HR < 70 Levetiracetam 500 mg/ Device 100 mls @ 200 mls/hr 12/01/18 09:00 12/06/18 08: 38 IVPB 100 mls BID ALON Administration Nicardipine HCl 50 mg/ Sodium 250 mls @ 0 mls/hr 12/01/18 07:21 12/06/18 15: 41 Chloride IVPB 250 mls INF PRN Administration SBP>140 Protocol Titrate Piperacillin Sod/Tazobactam 100 mls @ 200 mls/hr 12/06/18 02:00 12/06/18 15: 55 Sod 3.375 gm/ Sodium Chloride IVPB 100 mls 0200,0800,1400,2000 ALON Administration Lisinopril 20 mg 12/06/18 09:00 12/06/18 08:38 Zestril PO 20 mg DAILY ALON Administration Morphine Sulfate 2 mg 12/01/18 02:47 12/02/18 10:26 Morphine SLOW IVP 12/31/18 02:47 2 mg Q1H PRN Administration BREAKTHROUGH PAIN/Agitation Propofol 1,000 mg 12/01/18 02:47 12/06/18 04:12 Diprivan IV 12/31/18 02:47 1,000 mg INF PRN Administration TO ACHIEVE GOAL RASS Protocol - Exam Eye: PERRL, anicteric sclera Heart: RRR, no murmur, no gallops, no rubs, normal peripheral pulses Respiratory: CTAB, no wheezes, no rales, no ronchi, normal chest expansion Gastrointestinal: soft, non-tender, non-distended, normal bowel sounds, no palpable masses, no hepatomegaly, no splenomegaly, no bruit Extremities: no cyanosis, no clubbing, no edema Neurological: hemiplegia Hosp A/P (1) Hypertensive emergency Code(s): I16.1 - HYPERTENSIVE EMERGENCY Status: Acute (2) Intracranial hemorrhage Code(s): I62.9 - NONTRAUMATIC INTRACRANIAL HEMORRHAGE, UNSPECIFIED Status: Acute (3) Acute respiratory failure Code(s): J96.00 - ACUTE RESPIRATORY FAILURE, UNSP W HYPOXIA OR HYPERCAPNIA Status: Acute - Plan * ICH - presumed hypertensive- he is s/p craniotomy * HTN- his blood pressure continues to be a bit elevated- Lisinopril has been added * Nutritional support with tube feeding * GI Prophylaxis * DVT Prophylaxis with SCD's * Vent wean as per [facility]
[2018-12-07] MEDS: niCARdipine 50 MG in Sodium Chloride 0.9% 250 ML 230 ML IVPB PRN ×4 (01:04→15:04)
[2018-12-07] MEDS: Piperacillin/Tazobactam 3.375 GM in Sodium Chloride 0.9% 100 ML IVPB SCH ×4 (01:44→20:43)
[2018-12-07 05:38] LABS: #Basophils 0.1 thou/uL (0.0-0.2); #Eosinphils 0.1 thou/uL (0.0-0.7); #Lymphocytes 1.1 thou/uL (1.20-3.40); #Monocytes 1.3 thou/uL (0.11-0.59); #Neutrophils 10.6 thou/uL (1.40-6.50); %Basophils 0.4 % (0.0-1.0); %Eosinophils 0.7 % (0.0-10.0); %Lymphocytes 8.5 % (21.0-51.0); %Monocytes 9.9 % (0.0-10.0); %Neutrophils 80.5 % (42.0-75.0); Hemoglobin 11.3 g/dL (14.0-18.0); Mean Corpuscular HGB CONC 31.4 g/dL (32.0-36.0); Mean Corpuscular Hemoglobin 29.7 pg (27.0-31.0); Mean Corpuscular Volume 94.7 fL (78.0-98.0); Platelet Count 175 thou/uL (130-400); White Blood Cell (WBC) Count 13.2 thou/uL (4.8-10.8)
[2018-12-07 05:51] LABS: Anion Gap 11 mmol/L (10-20); BUN (Urea Nitrogen) 19 mg/dL (8.9-20.6); Calc. Creatinine Clearance 200 mL/min (70-130); Calcium 8.4 mg/dL (7.8-10.44); Carbon Dioxide 22 mmol/L (22-29); Chloride 113 mmol/L (98-107); Estimated GFR-MDRD Greater than 90; Glucose 111 mg/dL (70-105); Potassium 3.7 mmol/L (3.5-5.1); Sodium 142 mmol/L (136-145)
[2018-12-07 07:34] LABS: Actual Bicarbonate (HCO3a) 20.8 mEq/L (22-28); Base Excess (BEa) -2.8 mEq/L (-2.0 to +3.0); CO2 Tension 32.2 mmHg (35.0-45.0); Calcium, Ionized 1.15 mmol/L (1.12-1.30); Carboxyhemoglobin (COHb) 1.5 gm% (0.0-3.0); Hemoglobin (Hb) 11.6 g/dL (14.0-18.0); Potassium - ABG Lab 3.65 mmol/L (3.70-5.30); pH, Arterial 7.43 (7.35-7.45)
[2018-12-07 07:38] LABS: O2 Tension (PaO2) 53.5 mmHg (80.0-100.0); Puncture Site RRA
--- NOTE | 2018-12-07 08:57 | PRG ---
DATE OF SERVICE: 12/07/2018 I saw Mr. Olivier in the ICU this morning. He looks more comfortable with his tracheostomy and PEG with an endotracheal tube. Sedation has been weaned this morning. He opens his eyes to stimulus. He lifted two fingers. He lifted his thumb. He squeezed my hand today on the right side, the left extends. There is withdrawal in the lower extremities. Neurological function is stable. Sodium is 142. When Mr. Olivier is tolerating coming off sedation well and he is hemodynamically stable with his blood pressure under reasonable long-term control, then he could be moved out of the ICU and eventually to retirement or inpatient rehabilitation. Speech, occupational, and physical therapy can start. Job ID: [id number]
--- NOTE | 2018-12-07 09:25 | RAD ---
PORTABLE CHEST: HISTORY: Respiratory distress. COMPARISON: Prior day's study. FINDINGS: Heart size is enlarged. Tracheostomy tube is in place. There is some more linear interstitial doherty e in the bases suggestive of atelectasis. IMPRESSION: Cardiomegaly with some bibasilar interstitial lung change, stable. Mild vascular engorgement. POS: [facility]
[2018-12-07] MEDS: hydrALAZINE 25 MG TAB PER TUBE SCH ×4 (09:33→20:43)
[2018-12-07] MEDS: Amlodipine 10 MG TAB PO SCH (09:34)
[2018-12-07] MEDS: Lisinopril 20 MG TAB PO SCH (09:34)
[2018-12-07] MEDS: Famotidine 20 MG TAB PER TUBE SCH ×2 (09:35→20:43)
--- NOTE | 2018-12-07 09:59 | PRG ---
DATE OF SERVICE: 12/07/2018 TIME SPENT: 35 minutes critical care time. SUBJECTIVE: The patient remains on mechanical ventilation through a tracheostomy tube. He is awake. He is able to move his right side without difficulty. He is complaining about his Laws catheter. OBJECTIVE: VITAL SIGNS: On exam, his temperature is 98.8 with T-max of 100.1, pulse 86, blood pressure 184/91. A 24-hour intake 3581, output 2370. HEENT: Unremarkable except for the scar over his right temporal region. NECK: Trach in good position. LUNGS: Clear anteriorly. CARDIAC: S1 and S2, regular. ABDOMEN: Soft. EXTREMITIES: No edema. LABORATORY DATA: White blood cell count 13.2, hematocrit 36, platelet count 175. A pH of 7.43, pCO2 of 32, pO2 of 53 on SIMV rate 10, tidal volume 700, PEEP 8, pressure support 10, FiO2 of 30%. Sodium 142, potassium 3.7, chloride 113, CO2 of 22, BUN 19, creatinine 0.9, and glucose 111. Chest x-ray shows no acute changes. ASSESSMENT: 1. Intracranial hemorrhage, likely from hypertensive bleed. 2. Underlying obstructive sleep apnea, suspected. 3. Malignant hypertension. 4. Respiratory failure, requiring mechanical ventilation. PLAN: Minimize sedation. Try to move toward the trach collar today. We would consider stopping antibiotics if cultures from today do not show any significant growth. Job ID: [id number]
[2018-12-07] MEDS: Morphine 2 MG/ML SYRINGE SLOW IVP PRN ×2 (10:25→16:07)
--- NOTE | 2018-12-07 17:05 | PDOC.HOSPP ---
- Subjective Encounter Date: 12/07/18 Encounter Time: 11:00 Subjective: Mr. Olivier was seen today in follow-up of hypertensive crisi with ICH. He is able to follow some simple commands. He will open his eyes some. - Objective Vital Signs & Weight: Vital Signs (12 hours) Temp Pulse Pulse Pulse Resp BP BP 12/07/18 16:00 98.4 F 27 H 12/07/18 14:41 102 H 12/07/18 14:00 30 H 12/07/18 13:44 89 121/72 12/07/18 12:49 90 12/07/18 12:00 99.9 F H 12/07/18 10:31 112 H 12/07/18 10:04 124 H 98 146/113 H 12/07/18 10:00 29 H 12/07/18 09:34 80 137/76 12/07/18 09:33 80 137/76 12/07/18 09:21 95 79 148/86 H 12/07/18 08:00 22 H 12/07/18 07:01 95 12/07/18 07:00 99.5 F 12/07/18 06:00 22 H BP Pulse Ox Pulse Ox Pulse Ox 12/07/18 16:00 12/07/18 14:41 12/07/18 14:00 12/07/18 13:44 12/07/18 12:49 12/07/18 12:00 12/07/18 10:31 12/07/18 10:04 136/78 96 97 12/07/18 10:00 12/07/18 09:34 12/07/18 09:33 12/07/18 09:21 137/76 99 95 12/07/18 08:00 93 L 12/07/18 07:01 12/07/18 07:00 12/07/18 06:00 Weight Admit Weight 275 lb 9.245 oz Weight 274 lb 11.135 oz Most Recent Monitor Data Heart Rate from ECG 96 NIBP 166/93 NIBP BP-Mean 117 Respiration from ECG 31 SpO2 96 I&O: 12/06/18 12/07/18 12/08/18 06:59 06:59 06:59 Intake Total 3551 3581 1510 Output Total 2135 2370 1295 Balance 1416 1211 215 Result Diagrams: 12/07/18 05:29 12/07/18 05:29 Hospitalist ROS - Medication Medications: Active Medications Generic Name Dose Route Start Last Admin Trade Name Freq PRN Reason Stop Dose Admin Acetaminophen 650 mg 12/03/18 12:15 12/06/18 00:31 Tylenol Elixir PO 650 mg Q4H PRN Administration Headache/Fever/Mild Pain (1-3) Amlodipine Besylate 10 mg 12/03/18 09:00 12/07/18 09:34 Norvasc PO 10 mg DAILY ALON Administration Clonidine 0.1 mg 12/06/18 09:00 12/06/18 09:06 [id number] Patch TD 0.1 mg Q7DAYS ALON Administration Famotidine 20 mg 12/05/18 09:00 12/07/18 09:35 Pepcid PER TUBE 20 mg BID ALON Administration Hydralazine HCl 10 mg 12/02/18 10:16 12/02/18 10:26 Apresoline SLOW IVP 10 mg Q4H PRN Administration SBP > 180 and HR < 70 Hydralazine HCl 25 mg 12/07/18 09:00 12/07/18 13:44 Apresoline PER TUBE 25 mg QID ALON Administration Levetiracetam 500 mg/ Device 100 mls @ 200 mls/hr 12/01/18 09:00 12/07/18 09: 32 IVPB 100 mls BID ALON Administration Nicardipine HCl 50 mg/ Sodium 250 mls @ 0 mls/hr 12/01/18 07:21 12/07/18 15: 04 Chloride IVPB 250 mls INF PRN Administration SBP>140 Protocol Titrate Piperacillin Sod/Tazobactam 100 mls @ 200 mls/hr 12/06/18 02:00 12/07/18 15: 38 Sod 3.375 gm/ Sodium Chloride IVPB 100 mls 0200,0800,1400,2000 ALON Administration Lisinopril 20 mg 12/06/18 09:00 12/07/18 09:34 Zestril PO 20 mg DAILY ALON Administration Morphine Sulfate 2 mg 12/01/18 02:47 12/07/18 16:07 Morphine SLOW IVP 12/31/18 02:47 2 mg Q1H PRN Administration BREAKTHROUGH PAIN/Agitation Propofol 1,000 mg 12/01/18 02:47 12/06/18 04:12 Diprivan IV 12/31/18 02:47 1,000 mg INF PRN Administration TO ACHIEVE GOAL RASS Protocol - Exam Eye: PERRL Heart: RRR, no murmur, no gallops, no rubs, normal peripheral pulses Respiratory: CTAB, no wheezes, no rales, no ronchi, normal chest expansion, no tachypnea, normal percussion Gastrointestinal: soft, non-tender, non-distended, normal bowel sounds, no palpable masses, no hepatomegaly Extremities: no cyanosis, no edema Neurological: hemiplegia (left hemiplegia) Hosp A/P (1) Hypertensive emergency Code(s): I16.1 - HYPERTENSIVE EMERGENCY Status: Acute (2) Intracranial hemorrhage Code(s): I62.9 - NONTRAUMATIC INTRACRANIAL HEMORRHAGE, UNSPECIFIED Status: Acute (3) Acute respiratory failure Code(s): J96.00 - ACUTE RESPIRATORY FAILURE, UNSP W HYPOXIA OR HYPERCAPNIA Status: Acute - Plan * ICH - presumed hypertensive- he is s/p craniotomy- with some neurological improvement * HTN- his blood pressure- a bit improved * Nutritional support with tube feeding * GI Prophylaxis * DVT Prophylaxis with SCD's * Plan is for trial on T- collar today
[2018-12-07] MEDS: Acetaminophen 650 MG/20.3 ML UDCUP PO PRN (17:20)
[2018-12-08] MEDS: Acetaminophen 650 MG/20.3 ML UDCUP PO PRN (00:31)
[2018-12-08] MEDS: Piperacillin/Tazobactam 3.375 GM in Sodium Chloride 0.9% 100 ML IVPB SCH ×4 (02:06→20:38)
[2018-12-08] MEDS: niCARdipine 50 MG in Sodium Chloride 0.9% 250 ML 230 ML IVPB PRN ×5 (02:18→16:58)
[2018-12-08] MEDS: Labetalol HCl 100 MG/20 ML VIAL SLOW IVP PRN ×2 (02:19→13:29)
[2018-12-08] MEDS: Morphine 2 MG/ML SYRINGE SLOW IVP PRN ×3 (03:28→14:14)
[2018-12-08 06:51] LABS: #Basophils 0.1 thou/uL (0.0-0.2); #Eosinphils 0.1 thou/uL (0.0-0.7); #Lymphocytes 1.5 thou/uL (1.20-3.40); #Monocytes 1.6 thou/uL (0.11-0.59); #Neutrophils 11.1 thou/uL (1.40-6.50); %Basophils 0.4 % (0.0-1.0); %Eosinophils 0.9 % (0.0-10.0); %Lymphocytes 10.3 % (21.0-51.0); %Monocytes 11.2 % (0.0-10.0); %Neutrophils 77.3 % (42.0-75.0); Hemoglobin 10.8 g/dL (14.0-18.0); Mean Corpuscular HGB CONC 31.1 g/dL (32.0-36.0); Mean Corpuscular Hemoglobin 29.7 pg (27.0-31.0); Mean Corpuscular Volume 95.5 fL (78.0-98.0); Mean Platelet Volume 8.7 fL (7.4-10.4); Platelet Count 190 thou/uL (130-400); RBC Distribution Width 11.9 % (11.5-14.5); Red Blood Cell (RBC) Count 3.62 mill/uL (4.70-6.10); White Blood Cell (WBC) Count 14.4 thou/uL (4.8-10.8)
--- NOTE | 2018-12-08 07:10 | PRG ---
DATE OF SERVICE: 12/08/2018 I am seeing Mr. Olivier in his ICU room this morning. The last temperature recorded over 100 degrees Fahrenheit was on Tuesday at noon. Yesterday at noon, it was 99.9 Fahrenheit. Blood pressures have been in the 150s to 160s. Mr. Olivier is much more awake on his examination this morning. I entered the room and I held his hand out to shake my hand. He looks at me, emotions that he would like me to write a note. He is moving the right side purposely, both upper and lower extremities. The left side is not moving purposefully. There is some flexion of the lower extremities to stimulation of the foot. The upper extremity extends to stimulus. White blood cell count got up to 13.2 yesterday, and the sodium was 142 yesterday. Mr. Olivier is doing well from a neurosurgical perspective. We should continue to follow his sodium and once he is off all ventilatory support and cardiopulmonary issues are stable, then he could be transferred to floor care. Arrangements should be made for fpc or rehab. There is no reason not to start physical therapy, occupational therapy, and speech therapy. Job ID: [id number]
[2018-12-08 07:23] LABS: Anion Gap 9 mmol/L (10-20); BUN (Urea Nitrogen) 23 mg/dL (8.9-20.6); Calc. Creatinine Clearance 202 mL/min (70-130); Calcium 8.6 mg/dL (7.8-10.44); Carbon Dioxide 22 mmol/L (22-29); Chloride 113 mmol/L (98-107); Estimated GFR-MDRD Greater than 90; Glucose 118 mg/dL (70-105); Potassium 4.2 mmol/L (3.5-5.1); Sodium 140 mmol/L (136-145)
[2018-12-08] MEDS: hydrALAZINE 25 MG TAB PER TUBE SCH ×5 (08:10→20:38)
[2018-12-08] MEDS: cloNIDine 0.2 MG TAB PER TUBE SCH ×3 (08:10→20:38)
[2018-12-08] MEDS: Lisinopril 20 MG TAB PO SCH (08:10)
[2018-12-08] MEDS: Amlodipine 10 MG TAB PO SCH (08:11)
[2018-12-08] MEDS: Famotidine 20 MG TAB PER TUBE SCH ×2 (08:11→20:39)
--- NOTE | 2018-12-08 08:32 | ULT ---
BILATERAL LOWER EXTREMITY VENOUS DOPPLER: DATE: 12/08/2018. PROVIDED CLINICAL HISTORY: Immobility. FINDINGS: Fry scale and color Doppler sonography with spectral analysis was performed of the bilateral common femoral, femoral, popliteal, posterior tibial, greater saphenous, and profunda femoral veins, demonst rating a normal sonographic appearance to each. IMPRESSION: No sonographic evidence for lower extremity deep venous thrombosis. POS: [facility]PC
--- NOTE | 2018-12-08 09:53 | PRG ---
DATE OF SERVICE: 12/08/2018 TIME SPENT: 35 minutes of Critical Care time. SUBJECTIVE: The patient remains on mechanical ventilation through a tracheostomy. No acute events overnight. He remains on nicardipine drip for management of his blood pressure. OBJECTIVE: VITAL SIGNS: Temperature 99.4, pulse 88, blood pressure 163/77. 24-hour intake 3546, output 2715. HEENT: Unremarkable. NECK: Trach in good position. LUNGS: Clear anteriorly. CARDIAC: S1 and S2. Regular. ABDOMEN: Soft. Receiving enteral tube feeds. EXTREMITIES: No clubbing or cyanosis. He has trace edema throughout. LABORATORY DATA: Sodium 140, potassium 4.2, chloride 113, CO2 of 22, BUN 23, creatinine 0.9, glucose 118. White blood cell count 14.4, hematocrit 34.6, platelet count 190. ASSESSMENT: 1. Malignant hypertension. 2. Hypertensive bleed. 3. Acute respiratory failure requiring mechanical ventilation. 4. Obstructive sleep apnea suspected. PLAN: 1. Continue trach collar trials. 2. I have increased his hydralazine. If this does not help towards getting him off the nicardipine, then we probably need to add minoxidil tomorrow. He is on several other antihypertensives including clonidine and amlodipine. 3. So far, his cultures from 12/06, have not grown out anything. If the cultures remain still tomorrow, then I would discontinue the Zosyn. Job ID: [id number]
[2018-12-08] MEDS: hydrALAZINE 20 MG/ML VIAL SLOW IVP PRN (12:36)
--- NOTE | 2018-12-08 17:39 | PDOC.HOSPP ---
- Subjective Encounter Date: 12/08/18 Encounter Time: 10:40 Subjective: Mr. Olivier was seen today in follow-up of hypertensive crisis and ICH. He is becoming more alert. He follows commands, and will squeeze my hand and push down with his foot on the right - Objective Vital Signs & Weight: Vital Signs (12 hours) Temp Pulse Pulse Pulse Resp BP BP 12/08/18 16:58 86 124/70 12/08/18 16:00 21 H 12/08/18 15:00 99.1 F 12/08/18 14:28 86 136/71 12/08/18 14:14 171/88 H 12/08/18 14:00 24 H 12/08/18 13:29 102 H 171/88 H 12/08/18 12:37 83 169/87 H 12/08/18 12:36 83 143/82 H 12/08/18 12:00 21 H 12/08/18 11:00 99.4 F 12/08/18 10:53 83 143/82 H 12/08/18 10:00 28 H 12/08/18 09:33 80 143/84 H 12/08/18 09:08 85 81 143/81 H 12/08/18 08:11 80 173/92 H 12/08/18 08:10 80 173/92 H 12/08/18 08:00 30 H 12/08/18 07:00 99.4 F 12/08/18 06:57 80 152/85 H 12/08/18 06:00 19 BP Pulse Ox Pulse Ox Pulse Ox 12/08/18 16:58 12/08/18 16:00 12/08/18 15:00 12/08/18 14:28 12/08/18 14:14 12/08/18 14:00 12/08/18 13:29 12/08/18 12:37 12/08/18 12:36 12/08/18 12:00 12/08/18 11:00 12/08/18 10:53 12/08/18 10:00 12/08/18 09:33 12/08/18 09:08 145/72 H 93 L 94 L 12/08/18 08:11 12/08/18 08:10 12/08/18 08:00 100 12/08/18 07:00 12/08/18 06:57 99 12/08/18 06:00 Weight Admit Weight 275 lb 9.245 oz Weight 279 lb 15.793 oz Most Recent Monitor Data Heart Rate from ECG 77 NIBP 120/69 NIBP BP-Mean 86 Respiration from ECG 23 SpO2 98 I&O: 12/07/18 12/08/18 12/09/18 06:59 06:59 06:59 Intake Total 3581 3546 50 Output Total 2370 2750 1040 Balance 1211 796 -990 Result Diagrams: 12/08/18 06:45 12/08/18 06:45 Hospitalist ROS - Medication Medications: Active Medications Generic Name Dose Route Start Last Admin Trade Name Freq PRN Reason Stop Dose Admin Acetaminophen 650 mg 12/03/18 12:15 12/08/18 00:31 Tylenol Elixir PO 650 mg Q4H PRN Administration Headache/Fever/Mild Pain (1-3) Amlodipine Besylate 10 mg 12/03/18 09:00 12/08/18 08:11 Norvasc PO 10 mg DAILY ALON Administration Clonidine 0.2 mg 12/08/18 09:00 12/08/18 14:14 Catapres PER TUBE 0.2 mg TID ALON Administration Famotidine 20 mg 12/05/18 09:00 12/08/18 08:11 Pepcid PER TUBE 20 mg BID ALON Administration Hydralazine HCl 10 mg 12/02/18 10:16 12/08/18 12:36 Apresoline SLOW IVP 10 mg Q4H PRN Administration SBP > 180 and HR < 70 Hydralazine HCl 50 mg 12/08/18 08:23 12/08/18 16:58 Apresoline PER TUBE 50 mg QID ALON Administration Levetiracetam 500 mg/ Device 100 mls @ 200 mls/hr 12/01/18 09:00 12/08/18 08: 10 IVPB 100 mls BID ALON Administration Nicardipine HCl 50 mg/ Sodium 250 mls @ 0 mls/hr 12/01/18 07:21 12/08/18 16: 58 Chloride IVPB 250 mls INF PRN Administration SBP>140 Protocol Titrate Piperacillin Sod/Tazobactam 100 mls @ 200 mls/hr 12/06/18 02:00 12/08/18 13: 29 Sod 3.375 gm/ Sodium Chloride IVPB 100 mls 0200,0800,1400,2000 ALON Administration Labetalol HCl 10 mg 12/03/18 07:46 12/08/18 13:29 Normodyne SLOW IVP 10 mg Q2H PRN Administration Blood Pressure Lisinopril 20 mg 12/06/18 09:00 12/08/18 08:10 Zestril PO 20 mg DAILY ALON Administration Lorazepam 2 mg 12/01/18 02:47 12/08/18 13:47 Ativan SLOW IVP 12/31/18 02:47 2 mg Q1H PRN Administration Breakthrough agitation Morphine Sulfate 2 mg 12/01/18 02:47 12/08/18 14:14 Morphine SLOW IVP 12/31/18 02:47 2 mg Q1H PRN Administration BREAKTHROUGH PAIN/Agitation Propofol 1,000 mg 12/01/18 02:47 12/06/18 04:12 Diprivan IV 12/31/18 02:47 1,000 mg INF PRN Administration TO ACHIEVE GOAL RASS Protocol Sodium Chloride 10 ml 12/02/18 19:37 12/08/18 08:10 Flush - Normal Saline IVF 10 ml PRN PRN Administration Saline Flush - Exam Eye: PERRL, anicteric sclera Heart: RRR, no murmur, no gallops, no rubs, normal peripheral pulses Respiratory: CTAB, no wheezes, no rales, no ronchi, normal chest expansion, no tachypnea, normal percussion Gastrointestinal: soft, non-tender, non-distended, normal bowel sounds Extremities: no cyanosis, no clubbing (trace pedal edema in both legs), 1+ LE edema Neurological: hemiplegia (left side) Hosp A/P (1) Hypertensive emergency Code(s): I16.1 - HYPERTENSIVE EMERGENCY Status: Acute (2) Intracranial hemorrhage Code(s): I62.9 - NONTRAUMATIC INTRACRANIAL HEMORRHAGE, UNSPECIFIED Status: Acute (3) Acute respiratory failure Code(s): J96.00 - ACUTE RESPIRATORY FAILURE, UNSP W HYPOXIA OR HYPERCAPNIA Status: Acute - Plan * ICH - presumed hypertensive- he is s/p craniotomy- with some neurological improvement * HTN- blood pressure has been elevated- will add Clonidine scheduled- Hydralazine has also been added * Nutritional support with tube feeding * GI Prophylaxis * DVT Prophylaxis with SCD's * Plan is for trial on T- collar today- continue to wean as tolerated
[2018-12-09] MEDS: Acetaminophen 650 MG/20.3 ML UDCUP PO PRN ×2 (00:29→15:52)
[2018-12-09] MEDS: Piperacillin/Tazobactam 3.375 GM in Sodium Chloride 0.9% 100 ML IVPB SCH ×4 (02:04→19:24)
[2018-12-09 06:31] LABS: #Basophils 0.1 thou/uL (0.0-0.2); #Eosinphils 0.1 thou/uL (0.0-0.7); #Lymphocytes 1.8 thou/uL (1.20-3.40); #Monocytes 1.7 thou/uL (0.11-0.59); %Basophils 0.5 % (0.0-1.0); %Eosinophils 0.5 % (0.0-10.0); %Lymphocytes 12.2 % (21.0-51.0); %Monocytes 11.5 % (0.0-10.0); %Neutrophils 75.3 % (42.0-75.0); Hemoglobin 10.6 g/dL (14.0-18.0); Mean Corpuscular HGB CONC 31.1 g/dL (32.0-36.0); Mean Corpuscular Hemoglobin 30.2 pg (27.0-31.0); Mean Corpuscular Volume 97.2 fL (78.0-98.0); Mean Platelet Volume 9.4 fL (7.4-10.4); Platelet Count 231 thou/uL (130-400); RBC Distribution Width 12.1 % (11.5-14.5); Red Blood Cell (RBC) Count 3.51 mill/uL (4.70-6.10); White Blood Cell (WBC) Count 14.7 thou/uL (4.8-10.8)
[2018-12-09 06:41] LABS: Anion Gap 13 mmol/L (10-20); BUN (Urea Nitrogen) 23 mg/dL (8.9-20.6); Calc. Creatinine Clearance 185 mL/min (70-130); Carbon Dioxide 21 mmol/L (22-29); Chloride 113 mmol/L (98-107); Estimated GFR-MDRD Greater than 90; Glucose 100 mg/dL (70-105); Potassium 4.5 mmol/L (3.5-5.1); Sodium 142 mmol/L (136-145)
[2018-12-09] MEDS: hydrALAZINE 25 MG TAB PER TUBE SCH ×4 (08:18→19:25)
[2018-12-09] MEDS: Amlodipine 10 MG TAB PO SCH (08:18)
[2018-12-09] MEDS: Famotidine 20 MG TAB PER TUBE SCH ×2 (08:18→19:25)
[2018-12-09] MEDS: Lisinopril 20 MG TAB PO SCH (08:19)
[2018-12-09] MEDS: cloNIDine 0.2 MG TAB PER TUBE SCH ×3 (08:19→19:25)
[2018-12-09] MEDS ORDERED: Furosemide 20 MG/2 ML VIAL SLOW IVP SCH (09:45)
--- NOTE | 2018-12-09 10:16 | PRG ---
DATE OF SERVICE: 12/09/2018 SERVICE: Pulmonary Medicine. INTERVAL HISTORY: The patient is doing fine on a T-collar. He cannot provide any additional elements of the history. He does follow some very simple commands with significant motivation. He spontaneously moves the right upper extremity and bilateral lower extremities. The left upper extremity remains quite flaccid. Otherwise, there has been no interval change to his condition. PHYSICAL EXAMINATION: VITAL SIGNS: Afebrile with a T-max of 100.0. Pulse 88, blood pressure 130/85, respirations 29, and saturation 96%, currently on T-collar with 28% FiO2 delivered. GENERAL: The patient is somnolent. With gentle stimulation, wake back up, but with no stimulation, he drifts back off to sleep fairly quickly. Staple line is clean, dry, and intact. HEENT: Otherwise, normocephalic and atraumatic. LUNGS: Good air entry. Some rhonchi are present. That being said, when he coughs, it clears that. No prolonged expiratory phase or wheezing is appreciated. No dependent crackles. HEART: Normal rate, regular. ABDOMEN: Soft, nontender, and nondistended. Bowel sounds are positive. MUSCULOSKELETAL: No cyanosis or clubbing. There is no pitting in the bilateral lower extremities. NEUROLOGIC: As above. LABORATORY DATA: WBC 14.7, hemoglobin 10.6, and platelets 231,000. Sodium 142, chloride 113, and bicarb 21. Basic metabolic profile is otherwise unremarkable or stable. Urinalysis and urine drug screen were previously unremarkable. Blood cultures x2 and urine culture are negative. IMAGING STUDIES: Ultrasound of bilateral lower extremities demonstrates no evidence of DVT. ASSESSMENT: 1. Intracranial hemorrhage, status post craniotomy, bone flap out. 2. Hypertensive emergency, resolved. 3. Respiratory failure secondary to inability to protect airway, status post tracheostomy. DISCUSSION AND PLAN: The patient is doing okay from a respiratory standpoint. We are going to initiate mobilization efforts, provided safe to do so without a bone flap. Pulmonary/Critical Care will continue to follow along while the patient remains in this location. I will give him a laboratory holiday tomorrow morning. Job ID: [id number]
--- NOTE | 2018-12-09 11:16 | PRG ---
DATE OF SERVICE: 12/09/2018 Mr. Olivier this morning remained in the ICU. Incision is dry and well approximated. No drainage that I can note, that is noted. He follows commands briskly on the right with the upper and lower extremities, but is still densely hemiparetic on the left. He has been transitioned to a tracheal collar as of this morning and has actually been able to be weaned off the Cardene drip. Blood pressure still remains in the 130s of systolic. We will continue to follow. Job ID: [id number]
[2018-12-09] MEDS ORDERED: Metamucil PACK PO SCH (13:45)
--- NOTE | 2018-12-09 13:50 | EKG ---
Test Reason : ERS.[facility] Blood Pressure : / mmHG Vent. Rate : 094 BPM Atrial Rate : 094 BPM P-R Int : 180 ms QRS Dur : 074 ms QT Int : 362 ms P-R-T Axes : 052 037 045 degrees QTc Int : 452 ms Normal sinus rhythm Septal infarct , age undetermined Abnormal ECG Confirmed by BUBBA BOSS DO ([id number]), graphic editor ANGEL GIBBS ([id number]) on 12/09/2018 1:50:31 PM Referred By: Confirmed By:BUBBA BOSS DO
--- NOTE | 2018-12-09 14:25 | PDOC.HOSPP ---
- Subjective Encounter Date: 12/09/18 Encounter Time: 12:35 Subjective: awakens easily follows verbal stimuli to some extent and moves right sided extremities - Objective Vital Signs & Weight: Vital Signs (12 hours) Temp Resp Pulse Ox 12/09/18 13:00 97.9 F 12/09/18 08:00 99.8 F H 12/09/18 07:35 97 12/09/18 06:00 24 H 12/09/18 04:00 99.7 F H 20 Weight Admit Weight 275 lb 9.245 oz Weight 281 lb 12.012 oz Most Recent Monitor Data Heart Rate from ECG 90 NIBP 149/82 NIBP BP-Mean 104 Respiration from ECG 31 SpO2 100 I&O: 12/08/18 12/09/18 12/10/18 06:59 06:59 06:59 Intake Total 3546 2626 240 Output Total 2750 2260 2075 Balance 670 731 -2155 Result Diagrams: 12/09/18 06:08 12/09/18 06:08 Hospitalist ROS - Medication Medications: Active Medications Generic Name Dose Route Start Last Admin Trade Name Freq PRN Reason Stop Dose Admin Acetaminophen 650 mg 12/03/18 12:15 12/09/18 00:29 Tylenol Elixir PO 650 mg Q4H PRN Administration Headache/Fever/Mild Pain (1-3) Amlodipine Besylate 10 mg 12/03/18 09:00 12/09/18 08:18 Norvasc PO 10 mg DAILY ALON Administration Clonidine 0.2 mg 12/08/18 09:00 12/09/18 08:19 Catapres PER TUBE 0.2 mg TID ALON Administration Famotidine 20 mg 12/05/18 09:00 12/09/18 08:18 Pepcid PER TUBE 20 mg BID ALON Administration Hydralazine HCl 10 mg 12/02/18 10:16 12/08/18 12:36 Apresoline SLOW IVP 10 mg Q4H PRN Administration SBP > 180 and HR < 70 Hydralazine HCl 50 mg 12/08/18 08:23 12/09/18 14:00 Apresoline PER TUBE 50 mg QID ALON Administration Nicardipine HCl 50 mg/ Sodium 250 mls @ 0 mls/hr 12/01/18 07:21 12/08/18 16: 58 Chloride IVPB 250 mls INF PRN Administration SBP>140 Protocol Titrate Piperacillin Sod/Tazobactam 100 mls @ 200 mls/hr 12/06/18 02:00 12/09/18 14: 00 Sod 3.375 gm/ Sodium Chloride IVPB 100 mls 0200,0800,1400,2000 ALON Administration Labetalol HCl 10 mg 12/03/18 07:46 12/08/18 13:29 Normodyne SLOW IVP 10 mg Q2H PRN Administration Blood Pressure Lisinopril 20 mg 12/06/18 09:00 12/09/18 08:19 Zestril PO 20 mg DAILY ALON Administration Psyllium Hydrophilic Mucilloid 1 pk 12/09/18 13:45 12/09/18 13:59 Metamucil PO 12/09/18 15:45 1 pk NOW ALON Administration Sodium Chloride 10 ml 12/02/18 19:37 12/08/18 08:10 Flush - Normal Saline IVF 10 ml PRN PRN Administration Saline Flush - Exam General Appearance: ill appearing Eye: anicteric sclera Eye - other findings: has right eye ptosis ENT: no oropharyngeal lesions, dry oral mucosa Neck: supple, no JVD Neck - other findings: trach+ Heart: RRR, no murmur Respiratory: no wheezes, no rales Gastrointestinal: soft, non-tender, normal bowel sounds Gastrointestinal - other findings: peg+ Extremities: no cyanosis, no clubbing Neurological: hemiplegia Neurological - other findings: left Hosp A/P (1) Intracranial hemorrhage Code(s): I62.9 - NONTRAUMATIC INTRACRANIAL HEMORRHAGE, UNSPECIFIED Status: Acute (2) Hypertensive emergency Code(s): I16.1 - HYPERTENSIVE EMERGENCY Status: Acute (3) Acute respiratory failure Code(s): J96.00 - ACUTE RESPIRATORY FAILURE, UNSP W HYPOXIA OR HYPERCAPNIA Status: Acute Qualifiers: Respiratory failure complication: hypoxia and hypercapnia Qualified Code(s) : J96.01 - Acute respiratory failure with hypoxia; J96.02 - Acute respiratory failure with hypercapnia (4) Obesity (BMI 30-39.9) Code(s): E66.9 - OBESITY, UNSPECIFIED Status: Chronic (5) Sleep apnea Code(s): G47.30 - SLEEP APNEA, UNSPECIFIED Status: Suspected Qualifiers: Sleep apnea type: unspecified type Qualified Code(s): G47.30 - Sleep apnea , unspecified (6) Anemia Code(s): D64.9 - ANEMIA, UNSPECIFIED Status: Chronic - Plan had right basal ganglia area parenchymal bleed with left hemiplegia had decompressive craniectomy due to herniation post bleed. is off cardene drip, on trach collar and peg feeding continue norvasc, clonidine, lisinopril, hydralazine, keppra hemostable PT/OT eval
[2018-12-09] MEDS: Metamucil PACK PER TUBE SCH (19:25)
[2018-12-09] MEDS ORDERED: levETIRAcetam 500 MG TAB PO SCH (21:00)
[2018-12-10] MEDS: Piperacillin/Tazobactam 3.375 GM in Sodium Chloride 0.9% 100 ML IVPB SCH ×4 (01:17→20:01)
[2018-12-10] MEDS: Lisinopril 20 MG TAB PO SCH (07:45)
[2018-12-10] MEDS: hydrALAZINE 25 MG TAB PER TUBE SCH ×4 (07:45→20:02)
[2018-12-10] MEDS: cloNIDine 0.2 MG TAB PER TUBE SCH (07:45)
[2018-12-10] MEDS: Famotidine 20 MG TAB PER TUBE SCH ×2 (07:45→20:03)
[2018-12-10] MEDS: Amlodipine 10 MG TAB PO SCH (07:46)
[2018-12-10] MEDS: Metamucil PACK PER TUBE SCH ×2 (07:46→20:04)
[2018-12-10] MEDS: cloNIDine 0.1 MG TAB PO SCH ×3 (09:04→20:02)
[2018-12-10] MEDS: Lisinopril 5 MG TAB PO SCH ×2 (09:05→20:03)
[2018-12-10] MEDS: levETIRAcetam 500 mg/5 ml Oral Solution PER TUBE SCH ×2 (09:09→20:03)
--- NOTE | 2018-12-10 13:00 | PDOC.HOSPP ---
- Subjective Encounter Date: 12/10/18 Encounter Time: 07:45 Subjective: awakens to touch, moves right extemities on trach collar - Objective Vital Signs & Weight: Vital Signs (12 hours) Temp Pulse Resp BP Pulse Ox 12/10/18 08:00 98.7 F 12/10/18 07:21 100 12/10/18 06:38 81 106/61 12/10/18 06:00 16 12/10/18 04:00 99.0 F 16 12/10/18 03:06 72 12/10/18 02:00 24 H 12/10/18 01:00 73 20 135/84 Weight Admit Weight 275 lb 9.245 oz Weight 266 lb 12.149 oz Most Recent Monitor Data Heart Rate from ECG 77 NIBP 127/78 NIBP BP-Mean 94 Respiration from ECG 29 SpO2 100 I&O: 12/09/18 12/10/18 12/11/18 06:59 06:59 06:59 Intake Total 2622 1710 360 Output Total 2263 3083 475 Balance 366 -2645 -115 Result Diagrams: 12/09/18 06:08 12/09/18 06:08 Hospitalist ROS - Medication Medications: Active Medications Generic Name Dose Route Start Last Admin Trade Name Freq PRN Reason Stop Dose Admin Acetaminophen 650 mg 12/03/18 12:15 12/09/18 15:52 Tylenol Elixir PO 650 mg Q4H PRN Administration Headache/Fever/Mild Pain (1-3) Amlodipine Besylate 10 mg 12/03/18 09:00 12/10/18 07:46 Norvasc PO 10 mg DAILY ALON Administration Clonidine 0.1 mg 12/10/18 09:00 12/10/18 09:04 Catapres PO Not Given TID ALON Famotidine 20 mg 12/05/18 09:00 12/10/18 07:45 Pepcid PER TUBE 20 mg BID ALON Administration Hydralazine HCl 10 mg 12/02/18 10:16 12/08/18 12:36 Apresoline SLOW IVP 10 mg Q4H PRN Administration SBP > 180 and HR < 70 Hydralazine HCl 50 mg 12/10/18 09:00 12/10/18 09:05 Apresoline PER TUBE Not Given TID ALON Nicardipine HCl 50 mg/ Sodium 250 mls @ 0 mls/hr 12/01/18 07:21 12/08/18 16: 58 Chloride IVPB 250 mls INF PRN Administration SBP>140 Protocol Titrate Piperacillin Sod/Tazobactam 100 mls @ 200 mls/hr 12/06/18 02:00 12/10/18 07: 46 Sod 3.375 gm/ Sodium Chloride IVPB 100 mls 0200,0800,1400,2000 ALON Administration Labetalol HCl 10 mg 12/03/18 07:46 12/08/18 13:29 Normodyne SLOW IVP 10 mg Q2H PRN Administration Blood Pressure Levetiracetam 500 mg 12/10/18 09:00 12/10/18 09:09 Keppra Oral Solution PER TUBE 500 mg BID ALON Administration Lisinopril 5 mg 12/10/18 09:00 12/10/18 09:05 Zestril PO Not Given BID ALON Psyllium Hydrophilic Mucilloid 1 pk 12/09/18 21:00 12/10/18 07:46 Metamucil PER TUBE 1 pk BID ALON Administration Sodium Chloride 10 ml 12/02/18 19:37 12/08/18 08:10 Flush - Normal Saline IVF 10 ml PRN PRN Administration Saline Flush - Exam General Appearance: ill appearing Eye: anicteric sclera Eye - other findings: right eye ptosis ENT: no oropharyngeal lesions, dry oral mucosa Neck: no JVD Neck - other findings: trach+ Heart: RRR, no murmur Respiratory: no wheezes, no rales Gastrointestinal: soft, non-tender, normal bowel sounds Gastrointestinal - other findings: peg+ Extremities: no cyanosis, 1+ LE edema Neurological: hemiplegia Neurological - other findings: left Hosp A/P (1) Intracranial hemorrhage Code(s): I62.9 - NONTRAUMATIC INTRACRANIAL HEMORRHAGE, UNSPECIFIED Status: Acute (2) Hypertensive emergency Code(s): I16.1 - HYPERTENSIVE EMERGENCY Status: Resolved (3) Acute respiratory failure Code(s): J96.00 - ACUTE RESPIRATORY FAILURE, UNSP W HYPOXIA OR HYPERCAPNIA Status: Acute Qualifiers: Respiratory failure complication: hypoxia and hypercapnia Qualified Code(s) : J96.01 - Acute respiratory failure with hypoxia; J96.02 - Acute respiratory failure with hypercapnia (4) Obesity (BMI 30-39.9) Code(s): E66.9 - OBESITY, UNSPECIFIED Status: Chronic (5) Sleep apnea Code(s): G47.30 - SLEEP APNEA, UNSPECIFIED Status: Suspected Qualifiers: Sleep apnea type: unspecified type Qualified Code(s): G47.30 - Sleep apnea , unspecified (6) Anemia Code(s): D64.9 - ANEMIA, UNSPECIFIED Status: Chronic - Plan had right basal ganglia area parenchymal bleed with left hemiplegia s/p decompressive craniectomy due to herniation post bleed. on trach collar and peg feeding continue norvasc, clonidine, lisinopril, hydralazine, keppra will reduce doses of htn meds due to sbp trending in the 90" hemostable PT/OT eval likely will need placement
--- NOTE | 2018-12-10 13:06 | PRG ---
DATE OF SERVICE: 12/10/2018 SERVICE: Pulmonary Medicine. INTERVAL HISTORY: The patient is doing okay from respiratory standpoint. He is breathing comfortably and has no specific complaints. Otherwise, there has been no change to his condition. Yesterday evening, he got put back on the ventilator in order to "rest him." That being said, at that time, it was not apparent that he had any significant respiratory difficulties. PHYSICAL EXAMINATION: VITAL SIGNS: Afebrile currently. Pulse 85, blood pressure 119/69, respirations 32, and saturation 98%, currently on T-collar. GENERAL: The patient is awake and alert, in no apparent distress. LUNGS: Very good air entry with no prolonged expiratory phase or wheezing present. HEART: Normal rate. Regular. ABDOMEN: Soft, nontender, and nondistended. Bowel sounds are positive. MUSCULOSKELETAL: No cyanosis or clubbing. There is trace pitting in the bilateral lower extremities. ASSESSMENT: 1. Intracranial hemorrhage, status post craniectomy, bone flap out. 2. Hypertensive emergency, resolved. 3. Respiratory failure secondary to inability to protect airway, status post tracheostomy. DISCUSSION AND PLAN: I will discontinue the vent altogether. The patient is doing just fine on T-collar. We will continue our mobilization efforts through time. Once a plan is in place for the bone flap, discharge to care facility can be arranged. Job ID: [id number] MTDD
--- NOTE | 2018-12-10 14:06 | PRG ---
DATE OF SERVICE: 12/10/2018 Mr. Olivier continues to recover in the ICU. He follows commands briskly on the right side and exhibits frequent spontaneous movement. He has minimal movement on the left. His respiratory status has been somewhat stable. He has been on a t- piece and will likely cap the trach in the next 12 to 24 hours to see how well he tolerates that, at which time he could transition from the ICU. Job ID: [id number] MTDD
[2018-12-11] MEDS: Piperacillin/Tazobactam 3.375 GM in Sodium Chloride 0.9% 100 ML IVPB SCH ×5 (02:50→19:43)
[2018-12-11] MEDS: Acetaminophen 650 MG/20.3 ML UDCUP PO PRN ×4 (03:09→21:20)
--- NOTE | 2018-12-11 06:30 | PRG ---
DATE OF SERVICE: 12/11/2018 I saw Mr. Olivier in his ICU room this morning. His right arm is immobilized in a restraint because he tries to pick at his craniectomy incision. He is on a vent for weekend. He is now on trach collar. I do not see any fevers recorded in the last 24 hours and his blood pressure has been in the 130s to 140s. On examination, he follows commands on the right side. He is not moving the left purposefully. There is some reflex flexion of the lower extremity and some extension in the upper extremity. When our colleagues in Critical Care Medicine and Internal Medicine think that Mr. Olivier is stable for transfer to floor care, he can move out of the ICU. He is going to have a long road of physical, occupational, and speech therapy after this, and inpatient rehabilitation would be a good place for him to go. Job ID: [id number]
--- NOTE | 2018-12-11 08:52 | PRG ---
DATE OF SERVICE: 12/11/2018 SUBJECTIVE: He is off the ventilator, seems to be doing well. He moves his right side without difficulty, but is still hemiparetic on the left. OBJECTIVE: VITAL SIGNS: On exam, his temperature is 98.0, pulse 79, blood pressure 114/81, and O2 saturation 100%. HEENT: He has a large right parietal scar. NECK: No JVD. LUNGS: Clear anteriorly. Trach in good position. CARDIAC: S1 and S2. Regular. ABDOMEN: Soft. PEG tube noted. EXTREMITIES: No edema. LABORATORY DATA: No new labs were done today. ASSESSMENT: 1. Malignant hypertension. 2. Status post intracranial bleed requiring surgical intervention. 3. Left-sided hemiparesis. PLAN: 1. To intermediate care. 2. Hopefully to LTAC soon as he will need prolonged rehab. Continue current antihypertensives. 3. Stop antibiotics after seven days. Job ID: [id number]
[2018-12-11] MEDS: hydrALAZINE 25 MG TAB PER TUBE SCH ×2 (10:14→14:50)
[2018-12-11] MEDS: Famotidine 20 MG TAB PER TUBE SCH ×2 (10:29→21:20)
[2018-12-11] MEDS: cloNIDine 0.1 MG TAB PO SCH ×2 (10:29→14:50)
[2018-12-11] MEDS: Lisinopril 5 MG TAB PO SCH (10:30)
[2018-12-11] MEDS: levETIRAcetam 500 mg/5 ml Oral Solution PER TUBE SCH ×2 (10:30→21:21)
[2018-12-11] MEDS: Metamucil PACK PER TUBE SCH ×2 (10:30→21:39)
[2018-12-11] MEDS: Amlodipine 10 MG TAB PO SCH (10:30)
--- NOTE | 2018-12-11 14:23 | PDOC.HOSPP ---
- Subjective Encounter Date: 12/11/18 Encounter Time: 11:00 Subjective: awakens easily, readily shakes hand (right) moves right side well - Objective Vital Signs & Weight: Vital Signs (12 hours) Temp Pulse Pulse Pulse BP BP BP 12/11/18 10:30 82 148/93 H 12/11/18 10:29 148/83 H 12/11/18 10:14 76 148/93 H 12/11/18 09:07 103 H 97 132/79 133/80 12/11/18 08:00 98.9 F 12/11/18 04:00 98.7 F Pulse Ox 12/11/18 10:30 12/11/18 10:29 12/11/18 10:14 12/11/18 09:07 12/11/18 08:00 100 12/11/18 04:00 Weight Admit Weight 275 lb 9.245 oz Weight 268 lb 15.423 oz Most Recent Monitor Data Heart Rate from ECG 77 NIBP 125/82 NIBP BP-Mean 96 Respiration from ECG 27 SpO2 97 I&O: 12/10/18 12/11/18 12/12/18 06:59 06:59 06:59 Intake Total 1710 2402 30 Output Total 6667 2621 285 Balance -2645 -218 -255 Result Diagrams: 12/09/18 06:08 12/09/18 06:08 Hospitalist ROS - Medication Medications: Active Medications Generic Name Dose Route Start Last Admin Trade Name Freq PRN Reason Stop Dose Admin Acetaminophen 650 mg 12/03/18 12:15 12/11/18 10:34 Tylenol Elixir PO 650 mg Q4H PRN Administration Headache/Fever/Mild Pain (1-3) Amlodipine Besylate 10 mg 12/03/18 09:00 12/11/18 10:30 Norvasc PO 10 mg DAILY ALON Administration Clonidine 0.1 mg 12/10/18 09:00 12/11/18 10:29 Catapres PO 0.1 mg TID ALON Administration Famotidine 20 mg 12/05/18 09:00 12/11/18 10:29 Pepcid PER TUBE 20 mg BID ALON Administration Hydralazine HCl 10 mg 12/02/18 10:16 12/08/18 12:36 Apresoline SLOW IVP 10 mg Q4H PRN Administration SBP > 180 and HR < 70 Hydralazine HCl 50 mg 12/10/18 09:00 12/11/18 10:14 Apresoline PER TUBE 50 mg TID ALON Administration Piperacillin Sod/Tazobactam 100 mls @ 200 mls/hr 12/06/18 02:00 12/11/18 10: 14 Sod 3.375 gm/ Sodium Chloride IVPB 100 mls 0200,0800,1400,2000 ALON Administration Labetalol HCl 10 mg 12/03/18 07:46 12/08/18 13:29 Normodyne SLOW IVP 10 mg Q2H PRN Administration Blood Pressure Levetiracetam 500 mg 12/10/18 09:00 12/11/18 10:30 Keppra Oral Solution PER TUBE 500 mg BID ALON Administration Lisinopril 5 mg 12/10/18 09:00 12/11/18 10:30 Zestril PO 5 mg BID ALON Administration Psyllium Hydrophilic Mucilloid 1 pk 12/09/18 21:00 12/11/18 10:30 Metamucil PER TUBE Not Given BID ALON Sodium Chloride 10 ml 12/02/18 19:37 12/08/18 08:10 Flush - Normal Saline IVF 10 ml PRN PRN Administration Saline Flush - Exam General Appearance: awake alert Eye: anicteric sclera ENT: no oropharyngeal lesions, moist mucosa Neck: no JVD Neck - other findings: trach+ Heart: RRR, no rubs Respiratory: no wheezes, no rales Gastrointestinal: soft, non-tender, normal bowel sounds Gastrointestinal - other findings: peg+ Extremities: no cyanosis, 1+ LE edema Neurological: hemiplegia Hosp A/P (1) Intracranial hemorrhage Code(s): I62.9 - NONTRAUMATIC INTRACRANIAL HEMORRHAGE, UNSPECIFIED Status: Acute (2) Hypertensive emergency Code(s): I16.1 - HYPERTENSIVE EMERGENCY Status: Resolved (3) Acute respiratory failure Code(s): J96.00 - ACUTE RESPIRATORY FAILURE, UNSP W HYPOXIA OR HYPERCAPNIA Status: Acute Qualifiers: Respiratory failure complication: hypoxia and hypercapnia Qualified Code(s) : J96.01 - Acute respiratory failure with hypoxia; J96.02 - Acute respiratory failure with hypercapnia (4) Obesity (BMI 30-39.9) Code(s): E66.9 - OBESITY, UNSPECIFIED Status: Chronic (5) Sleep apnea Code(s): G47.30 - SLEEP APNEA, UNSPECIFIED Status: Suspected Qualifiers: Sleep apnea type: unspecified type Qualified Code(s): G47.30 - Sleep apnea , unspecified (6) Anemia Code(s): D64.9 - ANEMIA, UNSPECIFIED Status: Chronic - Plan had right basal ganglia area parenchymal bleed with left hemiplegia s/p decompressive craniectomy due to herniation post bleed. on trach collar and peg feeding continue norvasc, clonidine, lisinopril, hydralazine, keppra hemostable PT/OT eval and mobilize as tolerated, oob to chair. will need placement
[2018-12-11] MEDS: Morphine 2 MG/ML SYRINGE SLOW IVP PRN (22:15)
[2018-12-12] MEDS: cloNIDine 0.1 MG TAB PO SCH ×4 (02:13→21:15)
[2018-12-12] MEDS: hydrALAZINE 25 MG TAB PER TUBE SCH ×4 (02:13→21:15)
[2018-12-12] MEDS: Lisinopril 5 MG TAB PO SCH ×3 (02:14→21:15)
[2018-12-12] MEDS: Piperacillin/Tazobactam 3.375 GM in Sodium Chloride 0.9% 100 ML IVPB SCH ×4 (02:15→21:14)
[2018-12-12] MEDS: Morphine 2 MG/ML SYRINGE SLOW IVP PRN ×3 (02:16→21:12)
--- NOTE | 2018-12-12 06:51 | PRG ---
DATE OF SERVICE: 12/12/2018 I saw Mr. Olivier in his intermediate care unit bed this morning. He was moved out of the ICU yesterday. No events have been reported. I do not see any fevers on his electronic medical chart over the last 24 hours, and his blood pressures have been in the 120s to 130s. On examination, Mr. Olivier awakes when I entered the room. He tries to communicate by moving the right side of his body. He follows commands well on the right side and he withdraws the left leg. There is some extension of the left arm and occasional flexion. The incision is well-approximated and sutures are well positioned and intact. Mr. Olivier is now on tube feeds with some flushes. His sodium seems to be holding in the normal range. When we come to know the bed available for brain rehabilitation, he can be moved. Speech, Occupational, and physical Therapy will be warranted. I think the sutures need to be in at least one more week before removal and when they are removed, had to be thoroughly sterilized. Three months after his operation, we will aim to replace the bone flap, which should give ample time for resorption of the intracerebral hemorrhage and all associated swelling to go away. Job ID: [id number] [facility]
--- NOTE | 2018-12-12 08:34 | PRG ---
DATE OF SERVICE: 12/12/2018 SUBJECTIVE: He is up in a chair. He has a helmet onto protect his skull. No acute changes occurred overnight. OBJECTIVE: VITAL SIGNS: Temperature 98.5, pulse 76, blood pressure 146/78. A 24-hour intake 1242, output 1086. HEENT: Unchanged. NECK: No JVD. Trach in good position. LUNGS: Clear. CARDIAC: S1, S2. Regular. ABDOMEN: Soft. EXTREMITIES: No edema. LABORATORY DATA: No labs were obtained today. ASSESSMENT: 1. Status post intracranial bleed secondary to hypertension. 2. Left-sided hemiparesis. 3. Status post tracheostomy and percutaneous endoscopic gastrostomy. PLAN: 1. Antibiotics can be stopped after today. 2. Still awaiting transfer to LTAC. 3. Add scopolamine patch for excess secretions. Job ID: [id number]
[2018-12-12] MEDS: levETIRAcetam 500 mg/5 ml Oral Solution PER TUBE SCH ×2 (10:09→21:15)
[2018-12-12] MEDS: Amlodipine 10 MG TAB PO SCH (10:10)
[2018-12-12] MEDS: Scopolamine 1.5 mg/72 hour Patch TD SCH (10:12)
[2018-12-12] MEDS: Metamucil PACK PER TUBE SCH ×2 (10:12→21:17)
[2018-12-12] MEDS: Famotidine 20 MG TAB PER TUBE SCH ×2 (10:33→21:15)
--- NOTE | 2018-12-12 13:22 | PDOC.HOSPP ---
- Subjective Encounter Date: 12/12/18 Encounter Time: 09:45 Subjective: lethargic but awakens to touch moves right extremities uncle at bedside - Objective Vital Signs & Weight: Vital Signs (12 hours) Temp Pulse BP Pulse Ox 12/12/18 10:10 70 116/68 12/12/18 10:09 70 116/68 12/12/18 08:00 95 12/12/18 07:20 98.5 F 12/12/18 03:29 98.9 F 12/12/18 02:14 70 116/68 12/12/18 02:13 70 116/68 Weight Admit Weight 275 lb 9.245 oz Weight 268 lb Most Recent Monitor Data Heart Rate from ECG 83 NIBP 147/89 NIBP BP-Mean 108 Respiration from ECG 18 SpO2 99 I&O: 12/11/18 12/12/18 12/13/18 06:59 06:59 06:59 Intake Total 2402 1242 30 Output Total 2620 1086 Balance -218 156 30 Result Diagrams: 12/09/18 06:08 12/09/18 06:08 Hospitalist ROS - Medication Medications: Active Medications Generic Name Dose Route Start Last Admin Trade Name Freq PRN Reason Stop Dose Admin Acetaminophen 650 mg 12/03/18 12:15 12/11/18 21:20 Tylenol Elixir PO 650 mg Q4H PRN Administration Headache/Fever/Mild Pain (1-3) Amlodipine Besylate 10 mg 12/03/18 09:00 12/12/18 10:10 Norvasc PO 10 mg DAILY ALON Administration Clonidine 0.1 mg 12/10/18 09:00 12/12/18 10:09 Catapres PO 0.1 mg TID ALON Administration Famotidine 20 mg 12/05/18 09:00 12/12/18 10:33 Pepcid PER TUBE 20 mg BID ALON Administration Hydralazine HCl 10 mg 12/02/18 10:16 12/08/18 12:36 Apresoline SLOW IVP 10 mg Q4H PRN Administration SBP > 180 and HR < 70 Hydralazine HCl 50 mg 12/10/18 09:00 12/12/18 10:09 Apresoline PER TUBE 50 mg TID ALON Administration Piperacillin Sod/Tazobactam 100 mls @ 200 mls/hr 12/06/18 02:00 12/12/18 13: 20 Sod 3.375 gm/ Sodium Chloride IVPB 100 mls 0200,0800,1400,2000 ALON Administration Labetalol HCl 10 mg 12/03/18 07:46 12/08/18 13:29 Normodyne SLOW IVP 10 mg Q2H PRN Administration Blood Pressure Levetiracetam 500 mg 12/10/18 09:00 12/12/18 10:09 Keppra Oral Solution PER TUBE 500 mg BID ALON Administration Lisinopril 5 mg 12/10/18 09:00 12/12/18 10:09 Zestril PO 5 mg BID ALON Administration Morphine Sulfate 2 mg 12/11/18 18:10 12/12/18 06:30 Morphine SLOW IVP 2 mg Q4H PRN Administration Moderate Pain (4-6) Psyllium Hydrophilic Mucilloid 1 pk 12/09/18 21:00 12/12/18 10:12 Metamucil PER TUBE Not Given BID ALON Scopolamine 1.5 mg 12/12/18 08:15 12/12/18 10:12 Transderm Scop TD 1.5 mg Q3D ALON Administration Sodium Chloride 10 ml 12/02/18 19:37 12/08/18 08:10 Flush - Normal Saline IVF 10 ml PRN PRN Administration Saline Flush - Exam General Appearance: ill appearing Eye: anicteric sclera Eye - other findings: right eye ptosis ENT: no oropharyngeal lesions, moist mucosa Neck: no JVD Neck - other findings: trach+ Heart: RRR, no gallops Respiratory: no wheezes, no rales Gastrointestinal: soft, non-tender, normal bowel sounds Gastrointestinal - other findings: peg+ Neurological: hemiplegia Hosp A/P (1) Intracranial hemorrhage Code(s): I62.9 - NONTRAUMATIC INTRACRANIAL HEMORRHAGE, UNSPECIFIED Status: Acute (2) Hypertensive emergency Code(s): I16.1 - HYPERTENSIVE EMERGENCY Status: Resolved (3) Acute respiratory failure Code(s): J96.00 - ACUTE RESPIRATORY FAILURE, UNSP W HYPOXIA OR HYPERCAPNIA Status: Acute Qualifiers: Respiratory failure complication: hypoxia and hypercapnia Qualified Code(s) : J96.01 - Acute respiratory failure with hypoxia; J96.02 - Acute respiratory failure with hypercapnia (4) Obesity (BMI 30-39.9) Code(s): E66.9 - OBESITY, UNSPECIFIED Status: Chronic (5) Sleep apnea Code(s): G47.30 - SLEEP APNEA, UNSPECIFIED Status: Suspected Qualifiers: Sleep apnea type: unspecified type Qualified Code(s): G47.30 - Sleep apnea , unspecified (6) Anemia Code(s): D64.9 - ANEMIA, UNSPECIFIED Status: Chronic - Plan had right basal ganglia area parenchymal bleed with left hemiplegia on arrival. s/p decompressive craniectomy due to herniation post bleed. on trach collar and peg feeding continue norvasc, clonidine, lisinopril, hydralazine, keppra, will be off antibiotics from am. hemostable PT/OT eval and mobilize as tolerated, oob to chair. awaiting placement
[2018-12-13] MEDS: Morphine 2 MG/ML SYRINGE SLOW IVP PRN ×4 (00:17→13:18)
[2018-12-13] MEDS: Piperacillin/Tazobactam 3.375 GM in Sodium Chloride 0.9% 100 ML IVPB SCH ×2 (01:02→08:40)
--- NOTE | 2018-12-13 06:34 | PRG ---
DATE OF SERVICE: 12/13/2018 I saw Mr. Olivier in the intermediate care unit today. He was using his right hand to tap his TV remote control against the side of the bed to get someone's attention. He tried to communicate with pointing. He nods and shakes his head to yes and no questions. The left side is still not moving, but he is more alert as time goes by. I do not see any laboratory studies over the last few days. He is afebrile and his blood pressure is under reasonable control. His neurological examination is improving. Mr. Olivier will be ready for disposition soon. On our surgical perspective, our operative interventions are done other than the skull flap replacement in about 3 months. Ultrasound of the lower extremities can be ordered to monitor for DVT. Starting next week, prophylactic dose of low-molecular weight heparin can be started. Job ID: [id number]
[2018-12-13] MEDS: Amlodipine 10 MG TAB PO SCH (08:41)
[2018-12-13] MEDS: hydrALAZINE 25 MG TAB PER TUBE SCH ×3 (08:43→21:15)
[2018-12-13] MEDS: Lisinopril 5 MG TAB PO SCH ×2 (08:43→21:15)
[2018-12-13] MEDS: Famotidine 20 MG TAB PER TUBE SCH ×2 (08:43→21:15)
[2018-12-13] MEDS: cloNIDine 0.1 MG TAB PO SCH ×3 (08:43→21:15)
[2018-12-13] MEDS: levETIRAcetam 500 mg/5 ml Oral Solution PER TUBE SCH ×2 (08:43→21:19)
[2018-12-13] MEDS: Metamucil PACK PER TUBE SCH ×2 (08:45→21:21)
--- NOTE | 2018-12-13 08:47 | ULT ---
EXAM: Bilateral lower extremity venous Doppler HISTORY: Immobility. FINDINGS: Grayscale, color-flow, Doppler evaluation, spectral analysis of the bilateral lower extremities venou s structures is performed with 2-D imaging. The bilateral common femoral, superficial femoral, popliteal, posterior tibial, proximal greater saphenous and profunda femoral veins are imaged. There is normal luminal compressibility, flow, and augmentation in the visualized deep venous structu res of the bilateral lower extremities. IMPRESSION: No evidence of a deep vein thrombosis in the visualized deep venous structures bilateral lower extrem ities.
--- NOTE | 2018-12-13 10:07 | PRG ---
DATE OF SERVICE: 12/13/2018 SUBJECTIVE: The patient is about the same. No acute events overnight. OBJECTIVE: VITAL SIGNS: Temperature 98.8, pulse 66, blood pressure 112/60, and O2 saturation 97%. HEENT: Skull flap missing on the right. NECK: No adenopathy or JVD. CHEST: Clear. CARDIAC: S1 and S2, regular. ABDOMEN: Soft. PEG tube noted. EXTREMITIES: No edema. ASSESSMENT: No changes. The patient is postop from evacuation of a right parietal hypertensive bleed. His blood pressure has been under adequate control on medication through his tube. I am going to go ahead and stop his antibiotics. Placement in the LTAC is pending. Job ID: [id number]
--- NOTE | 2018-12-13 13:08 | PDOC.HOSPP ---
- Subjective Encounter Date: 12/13/18 Encounter Time: 12:40 Subjective: awakens easily, moves right extremities family at bedside - Objective Vital Signs & Weight: Vital Signs (12 hours) Temp Pulse BP Pulse Ox 12/13/18 11:15 98.1 F 12/13/18 08:43 75 125/76 12/13/18 08:41 75 125/76 12/13/18 08:00 98 12/13/18 07:38 98.8 F 12/13/18 03:40 98.1 F Weight Admit Weight 275 lb 9.245 oz Weight 265 lb 14.4 oz Most Recent Monitor Data Heart Rate from ECG 78 NIBP 99/59 NIBP BP-Mean 72 Respiration from ECG 26 SpO2 98 I&O: 12/12/18 12/13/18 12/14/18 06:59 06:59 06:59 Intake Total 1242 1110 60 Output Total 1086 Balance 156 1110 60 Result Diagrams: 12/09/18 06:08 12/09/18 06:08 Hospitalist ROS - Medication Medications: Active Medications Generic Name Dose Route Start Last Admin Trade Name Freq PRN Reason Stop Dose Admin Acetaminophen 650 mg 12/03/18 12:15 12/11/18 21:20 Tylenol Elixir PO 650 mg Q4H PRN Administration Headache/Fever/Mild Pain (1-3) Amlodipine Besylate 10 mg 12/03/18 09:00 12/13/18 08:41 Norvasc PO 10 mg DAILY ALON Administration Clonidine 0.1 mg 12/10/18 09:00 12/13/18 08:43 Catapres PO 0.1 mg TID AOLN Administration Famotidine 20 mg 12/05/18 09:00 12/13/18 08:43 Pepcid PER TUBE 20 mg BID ALON Administration Hydralazine HCl 10 mg 12/02/18 10:16 12/08/18 12:36 Apresoline SLOW IVP 10 mg Q4H PRN Administration SBP > 180 and HR < 70 Hydralazine HCl 50 mg 12/10/18 09:00 12/13/18 08:43 Apresoline PER TUBE 50 mg TID ALON Administration Labetalol HCl 10 mg 12/03/18 07:46 12/08/18 13:29 Normodyne SLOW IVP 10 mg Q2H PRN Administration Blood Pressure Levetiracetam 500 mg 12/10/18 09:00 12/13/18 08:43 Keppra Oral Solution PER TUBE 500 mg BID ALON Administration Lisinopril 5 mg 12/10/18 09:00 12/13/18 08:43 Zestril PO 5 mg BID ALON Administration Morphine Sulfate 2 mg 12/11/18 18:10 12/13/18 08:45 Morphine SLOW IVP 2 mg Q4H PRN Administration Moderate Pain (4-6) Psyllium Hydrophilic Mucilloid 1 pk 12/09/18 21:00 12/13/18 08:45 Metamucil PER TUBE Not Given BID ALON Scopolamine 1.5 mg 12/12/18 08:15 12/12/18 10:12 Transderm Scop TD 1.5 mg Q3D ALON Administration Sodium Chloride 10 ml 12/02/18 19:37 12/13/18 08:47 Flush - Normal Saline IVF 10 ml PRN PRN Administration Saline Flush - Exam Eye: PERRL, anicteric sclera ENT: no oropharyngeal lesions, moist mucosa Neck: no JVD Neck - other findings: trach+ Heart: RRR, no murmur Respiratory: no wheezes, no rales Gastrointestinal: soft, non-distended, normal bowel sounds Gastrointestinal - other findings: peg+ Extremities: no cyanosis, no edema Neurological: hemiplegia Hosp A/P (1) Intracranial hemorrhage Code(s): I62.9 - NONTRAUMATIC INTRACRANIAL HEMORRHAGE, UNSPECIFIED Status: Acute (2) Hypertensive emergency Code(s): I16.1 - HYPERTENSIVE EMERGENCY Status: Resolved (3) Acute respiratory failure Code(s): J96.00 - ACUTE RESPIRATORY FAILURE, UNSP W HYPOXIA OR HYPERCAPNIA Status: Acute Qualifiers: Respiratory failure complication: hypoxia and hypercapnia Qualified Code(s) : J96.01 - Acute respiratory failure with hypoxia; J96.02 - Acute respiratory failure with hypercapnia (4) Obesity (BMI 30-39.9) Code(s): E66.9 - OBESITY, UNSPECIFIED Status: Chronic (5) Sleep apnea Code(s): G47.30 - SLEEP APNEA, UNSPECIFIED Status: Suspected Qualifiers: Sleep apnea type: unspecified type Qualified Code(s): G47.30 - Sleep apnea , unspecified (6) Anemia Code(s): D64.9 - ANEMIA, UNSPECIFIED Status: Chronic - Plan had right basal ganglia area parenchymal bleed with left hemiplegia on arrival. s/p decompressive craniectomy due to herniation post bleed. on trach collar and peg feeding continue norvasc, clonidine, lisinopril, hydralazine, keppra. hemostable PT/OT eval and mobilize as tolerated, oob to chair. awaiting placement d/w family at bedside
[2018-12-14] MEDS: Morphine 2 MG/ML SYRINGE SLOW IVP PRN ×2 (05:15→17:09)
--- NOTE | 2018-12-14 08:39 | PRG ---
DATE OF SERVICE: 12/14/2018 I saw Mr. Olivier in his IMCU room this morning. He is resting comfortably. He makes some hand motions to try to communicate with me about moving his leg or propping it up on a pillow. Eventually, I seem to follow his commands. Vitals have been stable overnight. Blood pressures have been much better controlled than on admission and his neurological examination is slowly improving. When placement is ready, Mr. Olivier will be ready for discharge. He will need brain injury rehabilitation. We will plan on replacing the bone flap about 3 months after his first operation. Job ID: [id number]
[2018-12-14] MEDS: Metamucil PACK PER TUBE SCH ×2 (09:09→20:31)
[2018-12-14] MEDS: Famotidine 20 MG TAB PER TUBE SCH ×2 (09:10→20:30)
[2018-12-14] MEDS: levETIRAcetam 500 mg/5 ml Oral Solution PER TUBE SCH ×2 (09:10→20:29)
[2018-12-14] MEDS: hydrALAZINE 25 MG TAB PER TUBE SCH ×3 (09:12→20:30)
[2018-12-14] MEDS: Lisinopril 5 MG TAB PO SCH ×2 (09:12→20:30)
[2018-12-14] MEDS: Amlodipine 10 MG TAB PO SCH (09:12)
[2018-12-14] MEDS: cloNIDine 0.1 MG TAB PO SCH ×3 (09:13→20:29)
--- NOTE | 2018-12-14 09:56 | PRG ---
DATE OF SERVICE: 12/14/2018 SUBJECTIVE: He is about the same, remained somnolent in bed. OBJECTIVE: VITAL SIGNS: Temperature 98.2, pulse 65, blood pressure 116/78, O2 saturation 99%. HEENT: Head is somewhat misshapen due to the skull flap missing. NECK: No JVD. Trach in good position. LUNGS: Clear. CARDIAC: S1 and S2. Regular. ABDOMEN: Soft. EXTREMITIES: No edema. LABORATORY DATA: No labs were done. ASSESSMENT: 1. Status post intracranial bleed. 2. Status post craniotomy. 3. Status post trach and PEG placement. 4. Malignant hypertension. PLAN: He is continuing current treatment, awaiting LTAC placement. No new recommendations. Job ID: [id number]
--- NOTE | 2018-12-14 15:22 | PDOC.HOSPP ---
- Subjective Encounter Date: 12/14/18 Encounter Time: 11:35 Subjective: awakens easily, readily shakes hand using his right side moves right side well, tries open his right eye - Objective Vital Signs & Weight: Vital Signs (12 hours) Temp Pulse Pulse Pulse BP BP BP 12/14/18 14:56 76 123/80 12/14/18 12:20 97.1 F L 12/14/18 10:20 97 77 104/78 117/80 12/14/18 09:12 72 110/71 12/14/18 08:00 12/14/18 07:34 12/14/18 06:49 98.2 F Pulse Ox Pulse Ox 12/14/18 14:56 12/14/18 12:20 12/14/18 10:20 96 12/14/18 09:12 12/14/18 08:00 98 12/14/18 07:34 99 12/14/18 06:49 Weight Admit Weight 275 lb 9.245 oz Weight 258 lb Most Recent Monitor Data Heart Rate from ECG 81 NIBP 126/74 NIBP BP-Mean 91 Respiration from ECG 17 SpO2 96 I&O: 12/13/18 12/14/18 12/15/18 06:59 06:59 06:59 Intake Total 1110 1858 60 Balance 1110 1858 60 Result Diagrams: 12/09/18 06:08 12/09/18 06:08 Hospitalist ROS - Medication Medications: Active Medications Generic Name Dose Route Start Last Admin Trade Name Freq PRN Reason Stop Dose Admin Acetaminophen 650 mg 12/03/18 12:15 12/11/18 21:20 Tylenol Elixir PO 650 mg Q4H PRN Administration Headache/Fever/Mild Pain (1-3) Amlodipine Besylate 10 mg 12/03/18 09:00 12/14/18 09:12 Norvasc PO 10 mg DAILY ALON Administration Clonidine 0.1 mg 12/10/18 09:00 12/14/18 14:56 Catapres PO 0.1 mg TID ALON Administration Famotidine 20 mg 12/05/18 09:00 12/14/18 09:10 Pepcid PER TUBE 20 mg BID ALON Administration Hydralazine HCl 10 mg 12/02/18 10:16 12/08/18 12:36 Apresoline SLOW IVP 10 mg Q4H PRN Administration SBP > 180 and HR < 70 Hydralazine HCl 50 mg 12/10/18 09:00 12/14/18 14:56 Apresoline PER TUBE 50 mg TID ALON Administration Labetalol HCl 10 mg 12/03/18 07:46 12/08/18 13:29 Normodyne SLOW IVP 10 mg Q2H PRN Administration Blood Pressure Levetiracetam 500 mg 12/10/18 09:00 12/14/18 09:10 Keppra Oral Solution PER TUBE 500 mg BID ALON Administration Lisinopril 5 mg 12/10/18 09:00 12/14/18 09:12 Zestril PO 5 mg BID ALON Administration Morphine Sulfate 2 mg 12/11/18 18:10 12/14/18 05:15 Morphine SLOW IVP 2 mg Q4H PRN Administration Moderate Pain (4-6) Psyllium Hydrophilic Mucilloid 1 pk 12/09/18 21:00 12/14/18 09:09 Metamucil PER TUBE 1 pk BID ALON Administration Scopolamine 1.5 mg 12/12/18 08:15 12/12/18 10:12 Transderm Scop TD 1.5 mg Q3D ALON Administration Sodium Chloride 10 ml 12/02/18 19:37 12/13/18 13:20 Flush - Normal Saline IVF 10 ml PRN PRN Administration Saline Flush - Exam General Appearance: NAD, awake alert Eye: PERRL, anicteric sclera ENT: no oropharyngeal lesions, dry oral mucosa Neck: no JVD Neck - other findings: trach+ Heart: RRR, no murmur Respiratory: no wheezes, no rales Gastrointestinal: soft, non-distended, normal bowel sounds Gastrointestinal - other findings: peg+ Extremities: no cyanosis, no edema Neurological: hemiplegia, speech deficit Psychiatric: A&O x 3 Hosp A/P (1) Intracranial hemorrhage Code(s): I62.9 - NONTRAUMATIC INTRACRANIAL HEMORRHAGE, UNSPECIFIED Status: Acute (2) Hypertensive emergency Code(s): I16.1 - HYPERTENSIVE EMERGENCY Status: Resolved (3) Acute respiratory failure Code(s): J96.00 - ACUTE RESPIRATORY FAILURE, UNSP W HYPOXIA OR HYPERCAPNIA Status: Acute Qualifiers: Respiratory failure complication: hypoxia and hypercapnia Qualified Code(s) : J96.01 - Acute respiratory failure with hypoxia; J96.02 - Acute respiratory failure with hypercapnia (4) Obesity (BMI 30-39.9) Code(s): E66.9 - OBESITY, UNSPECIFIED Status: Chronic (5) Sleep apnea Code(s): G47.30 - SLEEP APNEA, UNSPECIFIED Status: Suspected Qualifiers: Sleep apnea type: unspecified type Qualified Code(s): G47.30 - Sleep apnea , unspecified (6) Anemia Code(s): D64.9 - ANEMIA, UNSPECIFIED Status: Chronic - Plan had right basal ganglia area parenchymal bleed with left hemiplegia on arrival. s/p decompressive craniectomy due to herniation post bleed. on trach collar and peg feeding continue norvasc, clonidine, lisinopril, hydralazine, keppra. hemostable PT/OT eval and mobilize as tolerated, oob to chair. awaiting placement, medically stable for dc to ltac.
--- NOTE | 2018-12-15 07:10 | PRG ---
DATE OF SERVICE: 12/15/2018 I saw Mr. Olivier in the intermediate care unit this morning. I walked in. His eyes were already open. He reached his hand to shake my hand as I moved in the room. He showed me that he can move his right side quite well and follow commands. He wanted to communicate, but it is difficulty with his tracheostomy in place. The left side is not moving purposefully, but has some motion and some tone. The incision looks good. Mr. Olivier needs placement. He will need aggressive brain injury rehabilitation with speech, occupational and physical therapy. He will be transferred at any time. I think the sutures should stay in at least through the weekend if not until the latter part of next week. He will need to be aggressively sterilized with Betadine on removal. Job ID: [id number]
--- NOTE | 2018-12-15 08:42 | PRG ---
DATE OF SERVICE: 12/15/2018 SUBJECTIVE: He is more awake this morning than he has been all week when I have seen him. OBJECTIVE: VITAL SIGNS: Temperature 97.6, pulse 69, blood pressure 122/80. HEENT: Remarkable for distorted head from not having the bone flap in place. NECK: No JVD. Trach in good position. LUNGS: Clear anteriorly. CARDIAC: S1 and S2. Regular. ABDOMEN: Soft. EXTREMITIES: No edema. NEUROLOGICAL: He can move his right side without difficulty to command. LABORATORY DATA: No labs were obtained today. ASSESSMENT: 1. Status post intracranial bleed. 2. Left hemiparesis. 3. Obstructive sleep apnea. 4. Status post tracheostomy and percutaneous endoscopic gastrostomy. PLAN: Mainly a placement issue at this point. Anticipate transfer to LTAC soon. Pulmonary Service available as needed. Job ID: [id number]
[2018-12-15] MEDS: Scopolamine 1.5 mg/72 hour Patch TD SCH (08:55)
[2018-12-15] MEDS: Amlodipine 10 MG TAB PO SCH (08:56)
[2018-12-15] MEDS: cloNIDine 0.1 MG TAB PO SCH ×3 (08:57→21:06)
[2018-12-15] MEDS: Famotidine 20 MG TAB PER TUBE SCH ×2 (08:57→21:06)
[2018-12-15] MEDS: levETIRAcetam 500 mg/5 ml Oral Solution PER TUBE SCH ×2 (08:57→21:07)
[2018-12-15] MEDS: Lisinopril 5 MG TAB PO SCH ×2 (08:57→21:07)
[2018-12-15] MEDS: Metamucil PACK PER TUBE SCH ×2 (08:57→21:07)
[2018-12-15] MEDS: hydrALAZINE 25 MG TAB PER TUBE SCH ×3 (08:57→21:06)
[2018-12-15] MEDS: Morphine 2 MG/ML SYRINGE SLOW IVP PRN ×2 (09:14→21:06)
--- NOTE | 2018-12-15 15:26 | PDOC.HOSPP ---
- Subjective Encounter Date: 12/15/18 Encounter Time: 08:40 Subjective: awake on trach collar moves right extremities well stood up with PT this am with max assistance - Objective Vital Signs & Weight: Vital Signs (12 hours) Temp Pulse Pulse BP BP Pulse Ox 12/15/18 15:09 98.7 F 12/15/18 11:00 98.2 F 12/15/18 09:28 72 115/80 97 12/15/18 08:57 73 129/74 12/15/18 08:56 73 129/74 12/15/18 07:07 97.6 F 12/15/18 04:00 98.6 F Weight Admit Weight 275 lb 9.245 oz Weight 258 lb Most Recent Monitor Data Heart Rate from ECG 79 NIBP 114/69 NIBP BP-Mean 84 Respiration from ECG 25 SpO2 94 I&O: 12/14/18 12/15/18 12/16/18 06:59 06:59 06:59 Intake Total 1858 3110 400 Balance 1858 3110 400 Result Diagrams: 12/09/18 06:08 12/09/18 06:08 Additional Labs: Accuchecks 12/15/18 06:12 POC Glucose 154 H Hospitalist ROS - Medication Medications: Active Medications Generic Name Dose Route Start Last Admin Trade Name Freq PRN Reason Stop Dose Admin Acetaminophen 650 mg 12/03/18 12:15 12/11/18 21:20 Tylenol Elixir PO 650 mg Q4H PRN Administration Headache/Fever/Mild Pain (1-3) Amlodipine Besylate 10 mg 12/03/18 09:00 12/15/18 08:56 Norvasc PO 10 mg DAILY ALON Administration Clonidine 0.1 mg 12/10/18 09:00 12/15/18 08:57 Catapres PO 0.1 mg TID ALON Administration Famotidine 20 mg 12/05/18 09:00 12/15/18 08:57 Pepcid PER TUBE 20 mg BID ALON Administration Hydralazine HCl 10 mg 12/02/18 10:16 12/08/18 12:36 Apresoline SLOW IVP 10 mg Q4H PRN Administration SBP > 180 and HR < 70 Hydralazine HCl 50 mg 12/10/18 09:00 12/15/18 08:57 Apresoline PER TUBE 50 mg TID ALON Administration Labetalol HCl 10 mg 12/03/18 07:46 12/08/18 13:29 Normodyne SLOW IVP 10 mg Q2H PRN Administration Blood Pressure Levetiracetam 500 mg 12/10/18 09:00 12/15/18 08:57 Keppra Oral Solution PER TUBE 500 mg BID ALON Administration Lisinopril 5 mg 12/10/18 09:00 12/15/18 08:57 Zestril PO 5 mg BID ALON Administration Morphine Sulfate 2 mg 12/11/18 18:10 12/15/18 09:14 Morphine SLOW IVP 2 mg Q4H PRN Administration Moderate Pain (4-6) Psyllium Hydrophilic Mucilloid 1 pk 12/09/18 21:00 12/15/18 08:57 Metamucil PER TUBE 1 pk BID ALON Administration Scopolamine 1.5 mg 12/12/18 08:15 12/15/18 08:55 Transderm Scop TD 1.5 mg Q3D ALON Administration Sodium Chloride 10 ml 12/02/18 19:37 12/14/18 17:10 Flush - Normal Saline IVF 10 ml PRN PRN Administration Saline Flush - Exam General Appearance: NAD, awake alert Eye: anicteric sclera ENT: no oropharyngeal lesions, moist mucosa Neck: no JVD Neck - other findings: trach+ Heart: RRR, no murmur Respiratory: no wheezes, no rales, rhonchi Gastrointestinal: soft, non-tender, normal bowel sounds Gastrointestinal - other findings: peg+ Extremities: no cyanosis, no edema Neurological: hemiplegia, speech deficit Hosp A/P (1) Intracranial hemorrhage Code(s): I62.9 - NONTRAUMATIC INTRACRANIAL HEMORRHAGE, UNSPECIFIED Status: Acute (2) Hypertensive emergency Code(s): I16.1 - HYPERTENSIVE EMERGENCY Status: Resolved (3) Acute respiratory failure Code(s): J96.00 - ACUTE RESPIRATORY FAILURE, UNSP W HYPOXIA OR HYPERCAPNIA Status: Acute Qualifiers: Respiratory failure complication: hypoxia and hypercapnia Qualified Code(s) : J96.01 - Acute respiratory failure with hypoxia; J96.02 - Acute respiratory failure with hypercapnia (4) Obesity (BMI 30-39.9) Code(s): E66.9 - OBESITY, UNSPECIFIED Status: Chronic (5) Sleep apnea Code(s): G47.30 - SLEEP APNEA, UNSPECIFIED Status: Suspected Qualifiers: Sleep apnea type: unspecified type Qualified Code(s): G47.30 - Sleep apnea , unspecified (6) Anemia Code(s): D64.9 - ANEMIA, UNSPECIFIED Status: Chronic - Plan had right basal ganglia area parenchymal bleed with left hemiplegia on arrival. s/p decompressive craniectomy due to herniation post bleed. on trach collar and peg feeding continue norvasc, clonidine, lisinopril, hydralazine, keppra. hemostable PT/OT eval and mobilize as tolerated, oob to chair. awaiting placement, medically stable for dc to ltac. CM is looking into [facility]
[2018-12-16] MEDS: Morphine 2 MG/ML SYRINGE SLOW IVP PRN ×2 (00:52→20:56)
[2018-12-16] MEDS: cloNIDine 0.1 MG TAB PO SCH ×3 (09:13→23:43)
[2018-12-16] MEDS: Amlodipine 10 MG TAB PO SCH (09:13)
[2018-12-16] MEDS: hydrALAZINE 25 MG TAB PER TUBE SCH ×3 (09:13→23:43)
[2018-12-16] MEDS: Metamucil PACK PER TUBE SCH ×2 (09:13→23:44)
[2018-12-16] MEDS: Lisinopril 5 MG TAB PO SCH ×2 (09:13→23:45)
[2018-12-16] MEDS: Famotidine 20 MG TAB PER TUBE SCH ×2 (09:13→23:44)
[2018-12-16] MEDS: levETIRAcetam 500 mg/5 ml Oral Solution PER TUBE SCH ×2 (09:13→23:44)
--- NOTE | 2018-12-16 10:01 | PRG ---
DATE OF SERVICE: 12/16/2018 SUBJECTIVE: The patient had no overnight events. Nursing reported he rested comfortably. On my exam this morning, he awakens easily and he is moving his right side easily and follows commands. He is having difficulty communicating secondary to tracheostomy, which is quite frustrating for the patient. Left-sided hemiparesis remains unchanged. The patient will need inpatient rehabilitation and Case Management continues to work on this. At this time, we are waiting on insurance authorization, is my understanding. We will continue to follow along. Job ID: [id number]
--- NOTE | 2018-12-16 12:41 | PRG ---
DATE OF SERVICE: 12/16/2018 Mr. Olivier is alert and interactive. He does seem to have some right-sided head discomfort and is picking somewhat on his incision. Incision itself is clean, dry, and intact. IMPRESSION AND PLAN: We will continue with current care and await rehab placement. Job ID: [id number]
--- NOTE | 2018-12-16 14:41 | PDOC.HOSPP ---
- Subjective Encounter Date: 12/16/18 Encounter Time: 10:40 Subjective: Pt seen for followup re: intracranial bleed. Denies chest pain or shortness of breath. - Objective Vital Signs & Weight: Vital Signs (12 hours) Temp 12/16/18 10:41 98.4 F 12/16/18 07:16 99.4 F 12/16/18 04:00 98.9 F Weight Admit Weight 275 lb 9.245 oz Weight 255 lb 2 oz Most Recent Monitor Data Heart Rate from ECG 70 NIBP 106/69 NIBP BP-Mean 81 Respiration from ECG 21 SpO2 98 I&O: 12/15/18 12/16/18 12/17/18 06:59 06:59 06:59 Intake Total 3110 2062 200 Balance 3110 2062 200 Result Diagrams: 12/09/18 06:08 12/09/18 06:08 Additional Labs: Labs and MARs reviewed by pr Hospitalist ROS - Review of Systems Cardiovascular: denies: chest pain, palpitations, orthopnea, paroxysmal noc. dyspnea, edema, light headedness Gastrointestinal: denies: nausea, vomiting, abdominal pain, diarrhea, constipation, melena, hematochezia - Medication Medications: Active Medications Generic Name Dose Route Start Last Admin Trade Name Freq PRN Reason Stop Dose Admin Acetaminophen 650 mg 12/03/18 12:15 12/11/18 21:20 Tylenol Elixir PO 650 mg Q4H PRN Administration Headache/Fever/Mild Pain (1-3) Amlodipine Besylate 10 mg 12/03/18 09:00 12/16/18 09:13 Norvasc PO 10 mg DAILY ALON Administration Clonidine 0.1 mg 12/10/18 09:00 12/16/18 09:13 Catapres PO 0.1 mg TID ALON Administration Famotidine 20 mg 12/05/18 09:00 12/16/18 09:13 Pepcid PER TUBE 20 mg BID ALON Administration Hydralazine HCl 10 mg 12/02/18 10:16 12/08/18 12:36 Apresoline SLOW IVP 10 mg Q4H PRN Administration SBP > 180 and HR < 70 Hydralazine HCl 50 mg 12/10/18 09:00 12/16/18 09:13 Apresoline PER TUBE 50 mg TID ALON Administration Labetalol HCl 10 mg 12/03/18 07:46 12/08/18 13:29 Normodyne SLOW IVP 10 mg Q2H PRN Administration Blood Pressure Levetiracetam 500 mg 12/10/18 09:00 12/16/18 09:13 Keppra Oral Solution PER TUBE 500 mg BID ALON Administration Lisinopril 5 mg 12/10/18 09:00 12/16/18 09:13 Zestril PO 5 mg BID ALON Administration Morphine Sulfate 2 mg 12/11/18 18:10 12/16/18 00:52 Morphine SLOW IVP 2 mg Q4H PRN Administration Moderate Pain (4-6) Psyllium Hydrophilic Mucilloid 1 pk 12/09/18 21:00 12/16/18 09:13 Metamucil PER TUBE 1 pk BID ALON Administration Scopolamine 1.5 mg 12/12/18 08:15 12/15/18 08:55 Transderm Scop TD 1.5 mg Q3D ALON Administration Sodium Chloride 10 ml 12/02/18 19:37 12/15/18 21:08 Flush - Normal Saline IVF 10 ml PRN PRN Administration Saline Flush - Exam General - other findings: Obese Eye: anicteric sclera ENT: moist mucosa Neck: supple Heart: RRR Respiratory: CTAB Gastrointestinal: soft Skin: no rashes Neurological - other findings: L hemiplegia Psychiatric: normal affect Hosp A/P (1) Intracranial hemorrhage Code(s): I62.9 - NONTRAUMATIC INTRACRANIAL HEMORRHAGE, UNSPECIFIED Status: Acute (2) Obesity (BMI 30-39.9) Code(s): E66.9 - OBESITY, UNSPECIFIED Status: Chronic - Plan PT/OT, out of bed/ambulate s/p surgery Awaiting placement
[2018-12-16] MEDS: Acetaminophen 650 MG/20.3 ML UDCUP PO PRN (20:55)
[2018-12-17] MEDS: Morphine 2 MG/ML SYRINGE SLOW IVP PRN ×2 (04:32→12:50)
[2018-12-17] MEDS: Acetaminophen 650 MG/20.3 ML UDCUP PO PRN (04:32)
[2018-12-17] MEDS: Amlodipine 10 MG TAB PO SCH (08:54)
[2018-12-17] MEDS: levETIRAcetam 500 mg/5 ml Oral Solution PER TUBE SCH ×2 (08:54→21:36)
[2018-12-17] MEDS: cloNIDine 0.1 MG TAB PO SCH ×3 (08:54→21:35)
[2018-12-17] MEDS: hydrALAZINE 25 MG TAB PER TUBE SCH ×3 (08:54→21:36)
[2018-12-17] MEDS: Lisinopril 5 MG TAB PO SCH ×2 (08:54→21:35)
[2018-12-17] MEDS: Famotidine 20 MG TAB PER TUBE SCH ×2 (08:54→21:36)
[2018-12-17] MEDS: Metamucil PACK PER TUBE SCH ×2 (08:55→21:37)
--- NOTE | 2018-12-17 09:38 | PRG ---
DATE OF SERVICE: 12/17/2018 SUBJECTIVE: The patient had no overnight events. He is sitting up in bed and is moving his right side vigorously. I did notice him trying to scratch the incision, and I reiterated the importance of leaving the incision alone so that it could heal appropriately. OBJECTIVE: On exam, this morning, he is awake, alert. He continues to have a dense left-sided hemiparesis. His incision is clean, dry, and intact. Neurologically unchanged and stable. Continue to wait for rehab placement. Job ID: [id number]
--- NOTE | 2018-12-17 16:08 | PDOC.HOSPP ---
- Subjective Encounter Date: 12/17/18 Encounter Time: 10:20 Subjective: Pt seen for followup re: intracranial bleed. Sleepy but arousable, not speaking , could not complete ROS. - Objective Vital Signs & Weight: Vital Signs (12 hours) Temp 12/17/18 10:46 97.6 F 12/17/18 07:17 98.3 F Weight Admit Weight 275 lb 9.245 oz Weight 250 lb 8 oz Most Recent Monitor Data Heart Rate from ECG 63 NIBP 125/75 NIBP BP-Mean 91 Respiration from ECG 33 SpO2 94 I&O: 12/16/18 12/17/18 12/18/18 06:59 06:59 06:59 Intake Total 2061 2361 400 Output Total 300 Balance 2061 2061 400 Result Diagrams: 12/09/18 06:08 12/09/18 06:08 Additional Labs: labs and MARs reviewed by me EKG Reviewed by me: Yes (Tele: NSR) Hospitalist ROS - Medication Medications: Active Medications Generic Name Dose Route Start Last Admin Trade Name Freq PRN Reason Stop Dose Admin Acetaminophen 650 mg 12/03/18 12:15 12/17/18 04:32 Tylenol Elixir PO 650 mg Q4H PRN Administration Headache/Fever/Mild Pain (1-3) Amlodipine Besylate 10 mg 12/03/18 09:00 12/17/18 08:54 Norvasc PO 10 mg DAILY ALON Administration Clonidine 0.1 mg 12/10/18 09:00 12/17/18 15:39 Catapres PO 0.1 mg TID ALON Administration Famotidine 20 mg 12/05/18 09:00 12/17/18 08:54 Pepcid PER TUBE 20 mg BID ALON Administration Hydralazine HCl 10 mg 12/02/18 10:16 12/08/18 12:36 Apresoline SLOW IVP 10 mg Q4H PRN Administration SBP > 180 and HR < 70 Hydralazine HCl 50 mg 12/10/18 09:00 12/17/18 15:39 Apresoline PER TUBE 50 mg TID ALON Administration Labetalol HCl 10 mg 12/03/18 07:46 12/08/18 13:29 Normodyne SLOW IVP 10 mg Q2H PRN Administration Blood Pressure Levetiracetam 500 mg 12/10/18 09:00 12/17/18 08:54 Keppra Oral Solution PER TUBE 500 mg BID ALON Administration Lisinopril 5 mg 12/10/18 09:00 12/17/18 08:54 Zestril PO 5 mg BID ALON Administration Morphine Sulfate 2 mg 12/11/18 18:10 12/17/18 12:50 Morphine SLOW IVP 2 mg Q4H PRN Administration Moderate Pain (4-6) Psyllium Hydrophilic Mucilloid 1 pk 12/09/18 21:00 12/17/18 08:55 Metamucil PER TUBE 1 pk BID ALON Administration Scopolamine 1.5 mg 12/12/18 08:15 12/15/18 08:55 Transderm Scop TD 1.5 mg Q3D ALON Administration Sodium Chloride 10 ml 12/02/18 19:37 12/16/18 23:45 Flush - Normal Saline IVF 10 ml PRN PRN Administration Saline Flush - Exam General - other findings: Obesity Eye: anicteric sclera ENT: moist mucosa Neck: supple Heart: RRR Respiratory: CTAB Gastrointestinal: soft Neurological - other findings: L weakness Psychiatric: lethargic Hosp A/P (1) Intracranial hemorrhage Code(s): I62.9 - NONTRAUMATIC INTRACRANIAL HEMORRHAGE, UNSPECIFIED Status: Acute (2) Obesity (BMI 30-39.9) Code(s): E66.9 - OBESITY, UNSPECIFIED Status: Chronic - Plan PT/OT, out of bed/ambulate s/p surgery Awaiting placement for SNU
[2018-12-18] MEDS: hydrALAZINE 25 MG TAB PER TUBE SCH ×4 (00:17→23:48)
--- NOTE | 2018-12-18 07:22 | PRG ---
DATE OF SERVICE: 12/18/2018 I saw Mr. Olivier in his [facility] bed this morning. He is more awake. He is watching television. He motions with his hand to communicate. He asked for the nurse. He follows commands quite well on the right side. I believe he can communicate verbally if his tracheostomy was out. The left side is not moving purposefully yet. I do not see any CBC for the last 9 days, and I will order one today. Later in the week, we will sterilely sterilize the scalp with Betadine and remove his sutures. If he is being transferred to rehab today, then I can remove sutures on Tuesday or or perhaps Tuesday. Note will have to be made that extensive Betadine application should be done before suture removal. Job ID: [id number]
[2018-12-18 07:56] LABS: #Basophils 0.1 thou/uL (0.0-0.2); #Eosinphils 0.1 thou/uL (0.0-0.7); #Lymphocytes 1.7 thou/uL (1.20-3.40); #Monocytes 0.9 thou/uL (0.11-0.59); #Neutrophils 9.7 thou/uL (1.40-6.50); %Basophils 0.7 % (0.0-1.0); %Eosinophils 0.7 % (0.0-10.0); %Lymphocytes 13.5 % (21.0-51.0); %Monocytes 7.1 % (0.0-10.0); Hemoglobin 12.1 g/dL (14.0-18.0); Mean Corpuscular HGB CONC 30.9 g/dL (32.0-36.0); Mean Corpuscular Hemoglobin 29.6 pg (27.0-31.0); Mean Corpuscular Volume 95.9 fL (78.0-98.0); Mean Platelet Volume 8.5 fL (7.4-10.4); Platelet Count 432 thou/uL (130-400); RBC Distribution Width 11.9 % (11.5-14.5); Red Blood Cell (RBC) Count 4.08 mill/uL (4.70-6.10); White Blood Cell (WBC) Count 12.4 thou/uL (4.8-10.8)
[2018-12-18] MEDS: Scopolamine 1.5 mg/72 hour Patch TD SCH (08:38)
[2018-12-18] MEDS: Amlodipine 10 MG TAB PO SCH (08:48)
[2018-12-18] MEDS: cloNIDine 0.1 MG TAB PO SCH ×3 (08:49→23:48)
[2018-12-18] MEDS: Famotidine 20 MG TAB PER TUBE SCH ×2 (08:49→23:48)
[2018-12-18] MEDS: Lisinopril 5 MG TAB PO SCH ×2 (08:50→23:49)
[2018-12-18] MEDS: levETIRAcetam 500 mg/5 ml Oral Solution PER TUBE SCH ×2 (08:50→23:48)
[2018-12-18] MEDS: Metamucil PACK PER TUBE SCH ×2 (08:51→23:49)
[2018-12-18] MEDS: Acetaminophen 650 MG/20.3 ML UDCUP PO PRN (08:51)
--- NOTE | 2018-12-18 09:54 | PRG ---
DATE OF SERVICE: 12/18/2018 SUBJECTIVE: He is doing well without complaint. He is much more interactive than he was last week. OBJECTIVE: VITAL SIGNS: On exam, his temperature is 98.5, pulse 66, blood pressure 97/46, and O2 saturation 100%. HEENT: Remarkable for slightly distorted head shape secondary to the skull flap being missing. NECK: Trach in good position. CARDIAC: S1 and S2. Regular. LUNGS: Clear. ABDOMEN: Soft. EXTREMITIES: No edema. LABORATORY DATA: White blood cell count 12.4, hematocrit 39.1, and platelet count 432. ASSESSMENT: 1. Status post intracranial hemorrhage. 2. Status post tracheostomy. 3. Underlying obstructive sleep apnea. 4. Malignant hypertension. PLAN: I will go ahead and downsize his tracheostomy and hopefully, we can start speaking valve trials. Job ID: [id number]
[2018-12-18] MEDS ORDERED: Bisacodyl 10 MG SUPP PR SCH (17:15)
[2018-12-18] MEDS: Morphine 2 MG/ML SYRINGE SLOW IVP PRN (18:25)
--- NOTE | 2018-12-18 18:52 | PDOC.HOSPP ---
- Subjective Encounter Date: 12/18/18 Encounter Time: 18:50 Subjective: Pt seen for followup re: intracranial bleed. More alert today. - Objective Vital Signs & Weight: Vital Signs (12 hours) Temp Pulse Pulse Pulse BP BP BP 12/18/18 15:18 77 109/67 12/18/18 15:17 108/67 12/18/18 15:12 97.2 F L 12/18/18 13:10 79 71 135/87 110/61 12/18/18 11:17 97.8 F 12/18/18 08:50 67 123/71 12/18/18 08:49 67 123/71 12/18/18 08:48 67 123/71 12/18/18 08:00 12/18/18 07:25 98.5 F Pulse Ox Pulse Ox Pulse Ox 12/18/18 15:18 12/18/18 15:17 12/18/18 15:12 12/18/18 13:10 100 100 12/18/18 11:17 12/18/18 08:50 12/18/18 08:49 12/18/18 08:48 12/18/18 08:00 100 12/18/18 07:25 Weight Admit Weight 275 lb 9.245 oz Weight 253 lb Most Recent Monitor Data Heart Rate from ECG 77 NIBP 129/81 NIBP BP-Mean 97 Respiration from ECG 20 SpO2 100 I&O: 12/17/18 12/18/18 12/19/18 06:59 06:59 06:59 Intake Total 2362 4400 1800 Output Total 300 400 Balance 2062 4000 1800 Result Diagrams: 12/18/18 07:37 12/09/18 06:08 Additional Labs: Labs and MARs reviewed by nm Hospitalist ROS - Review of Systems Cardiovascular: denies: chest pain, palpitations, orthopnea, paroxysmal noc. dyspnea, edema, light headedness Gastrointestinal: denies: nausea, vomiting, abdominal pain, diarrhea, constipation, melena, hematochezia - Medication Medications: Active Medications Generic Name Dose Route Start Last Admin Trade Name Freq PRN Reason Stop Dose Admin Acetaminophen 650 mg 12/03/18 12:15 12/18/18 08:51 Tylenol Elixir PO 650 mg Q4H PRN Administration Headache/Fever/Mild Pain (1-3) Amlodipine Besylate 10 mg 12/03/18 09:00 09/23/19 08:48 Norvasc PO 10 mg DAILY ALON Administration Bisacodyl 10 mg 12/18/18 17:15 12/18/18 18:08 Dulcolax NE 12/18/18 19:15 10 mg NOW ALON Administration Clonidine 0.1 mg 12/10/18 09:00 12/18/18 15:17 Catapres PO Not Given TID ALON Famotidine 20 mg 12/05/18 09:00 12/18/18 08:49 Pepcid PER TUBE 20 mg BID ALON Administration Hydralazine HCl 10 mg 12/02/18 10:16 12/08/18 12:36 Apresoline SLOW IVP 10 mg Q4H PRN Administration SBP > 180 and HR < 70 Hydralazine HCl 50 mg 12/10/18 09:00 12/18/18 15:18 Apresoline PER TUBE Not Given TID ALON Labetalol HCl 10 mg 12/03/18 07:46 12/08/18 13:29 Normodyne SLOW IVP 10 mg Q2H PRN Administration Blood Pressure Levetiracetam 500 mg 12/10/18 09:00 12/18/18 08:50 Keppra Oral Solution PER TUBE 500 mg BID ALON Administration Lisinopril 5 mg 12/10/18 09:00 12/18/18 08:50 Zestril PO 5 mg BID ALON Administration Morphine Sulfate 2 mg 12/11/18 18:10 12/18/18 18:25 Morphine SLOW IVP 2 mg Q4H PRN Administration Moderate Pain (4-6) Psyllium Hydrophilic Mucilloid 1 pk 12/09/18 21:00 12/18/18 08:51 Metamucil PER TUBE 1 pk BID ALON Administration Scopolamine 1.5 mg 12/12/18 08:15 12/18/18 08:38 Transderm Scop TD 1.5 mg Q3D ALON Administration Sodium Chloride 10 ml 12/02/18 19:37 12/16/18 23:45 Flush - Normal Saline IVF 10 ml PRN PRN Administration Saline Flush - Exam General - other findings: Obese Eye: anicteric sclera ENT: moist mucosa Neck: supple Heart: RRR Respiratory: CTAB Gastrointestinal: soft, non-tender Psychiatric: normal affect Hosp A/P (1) Intracranial hemorrhage Code(s): I62.9 - NONTRAUMATIC INTRACRANIAL HEMORRHAGE, UNSPECIFIED Status: Acute (2) Obesity (BMI 30-39.9) Code(s): E66.9 - OBESITY, UNSPECIFIED Status: Chronic - Plan PT/OT, out of bed/ambulate s/p surgery Did peer to peer. Declined for LTACH. They feel he is more appropriate for Inpt Rehab.
[2018-12-19] MEDS: Amlodipine 10 MG TAB PO SCH (08:22)
[2018-12-19] MEDS: Lisinopril 5 MG TAB PO SCH ×2 (08:22→23:33)
[2018-12-19] MEDS: Famotidine 20 MG TAB PER TUBE SCH ×2 (08:22→23:31)
[2018-12-19] MEDS: hydrALAZINE 25 MG TAB PER TUBE SCH ×3 (08:23→23:32)
[2018-12-19] MEDS: cloNIDine 0.1 MG TAB PO SCH ×3 (08:23→23:30)
[2018-12-19] MEDS: levETIRAcetam 500 mg/5 ml Oral Solution PER TUBE SCH ×2 (08:23→23:31)
[2018-12-19] MEDS: Metamucil PACK PER TUBE SCH ×2 (08:24→23:33)
--- NOTE | 2018-12-19 09:49 | ULT ---
EXAM: Bilateral lower extremity venous ultrasound HISTORY: History of stroke with immobility and edema of the legs COMPARISON: None TECHNIQUE: Multiplanar grayscale and color Doppler images were obtained in a bilateral lower extremit y venous ultrasound. Spectral analysis of the Doppler waveforms were performed. FINDINGS: The bilateral common femoral vein, profunda femoral veins, superficial femoral veins, and p opliteal veins are normal in appearance without visible thrombus. These vessels demonstrate normal compression, flow, and augmentation. The bilateral posterior tibial veins and greater saphenous veins are patent without evidence of throm bus. IMPRESSION: No evidence of DVT.
--- NOTE | 2018-12-19 10:00 | PRG ---
DATE OF SERVICE: 12/19/2018 I saw Mr. Olivier in his IMCU room this morning. He was wide awake and motioned me with his hand and he was trying to communicate. I believe he could talk if he did not have the tracheostomy. The right side is moving well. He asks about the replacement of his bone flap, and I gave him the time frame for that. He is not moving the left side purposefully, but he does have some reflex withdrawal, and he claims to have sensation on that side. Mr. Olivier will be ready for transfer to inpatient rehabilitation at any time. Job ID: [id number]
--- NOTE | 2018-12-19 10:21 | PRG ---
DATE OF SERVICE: 12/19/2018 SUBJECTIVE: He seems to be doing well. He is convinced that he is going home today, although I doubt that is the case. OBJECTIVE: VITAL SIGNS: Temperature 97.6, pulse 57, blood pressure 101/59, and O2 saturation 100%. HEENT: Unremarkable. NECK: He is able to phonate with speaking valve. LUNGS: Clear. CARDIAC: S1 and S2, regular. ASSESSMENT: 1. Status post intracranial bleed. 2. Malignant hypertension. 3. Obstructive sleep apnea. 4. Status post respiratory failure, requiring mechanical ventilation trach. PLAN: The main issue at this point is placement. I would not downsize his trach beyond what he has right now until he has had extensive rehabilitation, at some point in the future will need a sleep study. Job ID: [id number]
--- NOTE | 2018-12-19 14:11 | PDOC.HOSPP ---
- Subjective Encounter Date: 12/19/18 Encounter Time: 09:00 Subjective: Pt seen for followup re: intracranial bleed. Awake, signs that he is leaving today. - Objective Vital Signs & Weight: Vital Signs (12 hours) Temp Pulse Pulse Pulse BP BP BP 12/19/18 08:40 72 73 117/71 130/84 12/19/18 08:23 77 109/67 12/19/18 08:22 77 109/67 12/19/18 08:00 12/19/18 05:00 97.6 F Pulse Ox Pulse Ox Pulse Ox 12/19/18 08:40 96 95 12/19/18 08:23 12/19/18 08:22 12/19/18 08:00 99 12/19/18 05:00 Weight Admit Weight 275 lb 9.245 oz Weight 251 lb 1.6 oz Most Recent Monitor Data Heart Rate from ECG 61 NIBP 92/56 NIBP BP-Mean 68 Respiration from ECG 19 SpO2 100 I&O: 12/18/18 12/19/18 12/20/18 06:59 06:59 06:59 Intake Total 4400 3200 400 Output Total 400 Balance 4000 3200 400 Result Diagrams: 12/18/18 07:37 12/09/18 06:08 Additional Labs: Labs and MARs reviewed by ks Hospitalist ROS - Review of Systems Cardiovascular: denies: chest pain, palpitations, orthopnea, paroxysmal noc. dyspnea, edema, light headedness Gastrointestinal: denies: nausea, vomiting, abdominal pain, diarrhea, constipation, melena, hematochezia - Medication Medications: Active Medications Generic Name Dose Route Start Last Admin Trade Name Ashkan PRN Reason Stop Dose Admin Acetaminophen 650 mg 12/03/18 12:15 12/18/18 08:51 Tylenol Elixir PO 650 mg Q4H PRN Administration Headache/Fever/Mild Pain (1-3) Amlodipine Besylate 10 mg 12/03/18 09:00 12/19/18 08:22 Norvasc PO 10 mg DAILY ALON Administration Clonidine 0.1 mg 12/10/18 09:00 12/19/18 08:23 Catapres PO Not Given TID ALON Famotidine 20 mg 12/05/18 09:00 12/19/18 08:22 Pepcid PER TUBE 20 mg BID ALON Administration Hydralazine HCl 10 mg 12/02/18 10:16 12/08/18 12:36 Apresoline SLOW IVP 10 mg Q4H PRN Administration SBP > 180 and HR < 70 Hydralazine HCl 50 mg 12/10/18 09:00 12/19/18 08:23 Apresoline PER TUBE Not Given TID ALON Labetalol HCl 10 mg 12/03/18 07:46 12/08/18 13:29 Normodyne SLOW IVP 10 mg Q2H PRN Administration Blood Pressure Levetiracetam 500 mg 12/10/18 09:00 12/19/18 08:23 Keppra Oral Solution PER TUBE 500 mg BID ALON Administration Lisinopril 5 mg 12/10/18 09:00 12/19/18 08:22 Zestril PO 5 mg BID ALON Administration Morphine Sulfate 2 mg 12/11/18 18:10 12/18/18 18:25 Morphine SLOW IVP 2 mg Q4H PRN Administration Moderate Pain (4-6) Psyllium Hydrophilic Mucilloid 1 pk 12/09/18 21:00 12/19/18 08:24 Metamucil PER TUBE 1 pk BID ALON Administration Scopolamine 1.5 mg 12/12/18 08:15 12/18/18 08:38 Transderm Scop TD 1.5 mg Q3D ALON Administration Sodium Chloride 10 ml 12/02/18 19:37 12/16/18 23:45 Flush - Normal Saline IVF 10 ml PRN PRN Administration Saline Flush - Exam General - other findings: Obese Eye: anicteric sclera Neck - other findings: tracheostomy Heart: RRR Respiratory: CTAB Gastrointestinal: soft, non-tender Gastrointestinal - other findings: PEG tube Psychiatric: normal affect, normal behavior Hosp A/P (1) Intracranial hemorrhage Code(s): I62.9 - NONTRAUMATIC INTRACRANIAL HEMORRHAGE, UNSPECIFIED Status: Acute (2) Obesity (BMI 30-39.9) Code(s): E66.9 - OBESITY, UNSPECIFIED Status: Chronic - Plan s/p surgery Pt awaiting Inpt Rehab.
[2018-12-19] MEDS: Acetaminophen 650 MG/20.3 ML UDCUP PO PRN (23:31)
[2018-12-20] MEDS: Morphine 2 MG/ML SYRINGE SLOW IVP PRN ×2 (01:20→16:28)
[2018-12-20] MEDS ORDERED: diphenhydrAMINE 50 MG/ML VIAL IVP SCH (04:15)
[2018-12-20] MEDS: Amlodipine 10 MG TAB PO SCH (08:30)
[2018-12-20] MEDS: Famotidine 20 MG TAB PER TUBE SCH ×2 (08:30→21:31)
[2018-12-20] MEDS: levETIRAcetam 500 mg/5 ml Oral Solution PER TUBE SCH ×2 (08:30→21:31)
[2018-12-20] MEDS: Lisinopril 5 MG TAB PO SCH ×2 (08:30→21:36)
[2018-12-20] MEDS: cloNIDine 0.1 MG TAB PO SCH ×3 (08:31→23:30)
[2018-12-20] MEDS: hydrALAZINE 25 MG TAB PER TUBE SCH ×3 (08:31→23:31)
[2018-12-20] MEDS: Metamucil PACK PER TUBE SCH ×2 (08:31→21:31)
--- NOTE | 2018-12-20 09:53 | PRG ---
DATE OF SERVICE: 12/20/2018 Mr. Olivier is still in the IMCU. He is on a trach collar with oxygen blow-by. He is awake when I walk in this morning, he is motioning to get his writing pad, so he can communicate. He clearly understands language and I believe could speak well without the trach in. He has no purposeful movement of the left side for me. Once Mr. Olivier was accepted in the [facility], he can be transferred to rehab. In the meantime, we will discuss this case with other providers, and once they are satisfied that he can move to floor care, then he can get out of the IMCU. This likely depends on how much trach care he needs. Job ID: [id number]
--- NOTE | 2018-12-20 10:30 | PRG ---
DATE OF SERVICE: 12/20/2018 SUBJECTIVE: He remains in the intermediate care unit. He is pending a rehab transfer. There has really been no acute events overnight. OBJECTIVE: VITAL SIGNS: Temperature 97.8, pulse 77, and blood pressure 105/67. HEENT: Unremarkable except for distorted skull due to missing skull flap. NECK: Trach in good position. LUNGS: Clear. CARDIAC: S1, S2. Regular. ABDOMEN: Soft. EXTREMITIES: No edema. LABORATORY DATA: No labs were obtained today. ASSESSMENT: The patient is status quo. Problem list is unchanged from yesterday. PLAN: Rehab transfer as soon as possible. Job ID: [id number]
[2018-12-20 17:07] VITALS: BMI 34.0
--- NOTE | 2018-12-20 18:29 | PDOC.HOSPP ---
- Subjective Encounter Date: 12/20/18 Encounter Time: 11:00 Subjective: Pt seen for followup re: intracranial bleed. No complaints today. - Objective Vital Signs & Weight: Vital Signs (12 hours) Temp Pulse BP BP BP Pulse Ox 12/20/18 15:55 99/55 L 12/20/18 15:33 98.2 F 12/20/18 11:17 98.2 F 12/20/18 08:46 79 109/80 110/75 12/20/18 08:30 105/67 12/20/18 08:00 98 12/20/18 07:34 97.8 F 12/20/18 07:02 96 Weight Admit Weight 275 lb 9.245 oz Weight 251 lb 6.4 oz Most Recent Monitor Data Heart Rate from ECG 65 NIBP 116/69 NIBP BP-Mean 84 Respiration from ECG 19 SpO2 100 I&O: 12/19/18 12/20/18 12/21/18 06:59 06:59 06:59 Intake Total 3200 2040 1440 Balance 3200 2040 1440 Result Diagrams: 12/18/18 07:37 12/09/18 06:08 Additional Labs: Labs and MARs reviewed by ak Hospitalist ROS - Review of Systems Cardiovascular: denies: chest pain, palpitations, orthopnea, paroxysmal noc. dyspnea, edema, light headedness Gastrointestinal: denies: nausea, vomiting, abdominal pain, diarrhea, constipation, melena, hematochezia - Medication Medications: Active Medications Generic Name Dose Route Start Last Admin Trade Name Freq PRN Reason Stop Dose Admin Acetaminophen 650 mg 12/03/18 12:15 12/19/18 23:31 Tylenol Elixir PO 650 mg Q4H PRN Administration Headache/Fever/Mild Pain (1-3) Amlodipine Besylate 10 mg 12/03/18 09:00 12/20/18 08:30 Norvasc PO 10 mg DAILY ALON Administration Clonidine 0.1 mg 12/10/18 09:00 12/20/18 15:55 Catapres PO Not Given TID ALON Famotidine 20 mg 12/05/18 09:00 12/20/18 08:30 Pepcid PER TUBE 20 mg BID ALON Administration Hydralazine HCl 10 mg 12/02/18 10:16 12/08/18 12:36 Apresoline SLOW IVP 10 mg Q4H PRN Administration SBP > 180 and HR < 70 Hydralazine HCl 50 mg 12/10/18 09:00 12/20/18 15:55 Apresoline PER TUBE Not Given TID [facility] Labetalol HCl 10 mg 12/03/18 07:46 12/08/18 13:29 Normodyne SLOW IVP 10 mg Q2H PRN Administration Blood Pressure Levetiracetam 500 mg 12/10/18 09:00 12/20/18 08:30 Keppra Oral Solution PER TUBE 500 mg BID ALON Administration Lisinopril 5 mg 12/10/18 09:00 12/20/18 08:30 Zestril PO 5 mg BID ALON Administration Morphine Sulfate 2 mg 12/11/18 18:10 12/20/18 16:28 Morphine SLOW IVP 2 mg Q4H PRN Administration Moderate Pain (4-6) Psyllium Hydrophilic Mucilloid 1 pk 12/09/18 21:00 12/20/18 08:31 Metamucil PER TUBE 1 pk BID ALON Administration Scopolamine 1.5 mg 12/12/18 08:15 12/18/18 08:38 Transderm Scop TD 1.5 mg Q3D ALON Administration Sodium Chloride 10 ml 12/02/18 19:37 12/16/18 23:45 Flush - Normal Saline IVF 10 ml PRN PRN Administration Saline Flush - Exam General - other findings: Obese Eye: anicteric sclera ENT: no oropharyngeal lesions, moist mucosa Neck: supple Neck - other findings: tracheostomy Heart: RRR Respiratory: CTAB Gastrointestinal: soft Neurological: hemiplegia Musculoskeletal - other findings: L weakness Psychiatric: normal affect Hosp A/P (1) Intracranial hemorrhage Code(s): I62.9 - NONTRAUMATIC INTRACRANIAL HEMORRHAGE, UNSPECIFIED Status: Acute (2) Obesity (BMI 30-39.9) Code(s): E66.9 - OBESITY, UNSPECIFIED Status: Chronic - Plan PT/OT, out of bed/ambulate s/p surgery Pt awaiting Inpt Rehab bed for further management.
[2018-12-20] MEDS: Acetaminophen 650 MG/20.3 ML UDCUP PO PRN (22:44)
[2018-12-21] MEDS: Morphine 2 MG/ML SYRINGE SLOW IVP PRN (03:21)
--- NOTE | 2018-12-21 08:24 | PRG ---
DATE OF SERVICE: 12/21/2018 I saw Mr. Olivier in IM today. Sutures were removed yesterday. There has been no fevers on his vital signs and his blood pressure is under relatively good control. Mr. Olivier continues to improve neurologically. He is starting to talk and communicate with right side quite easily. The left side does not move purposefully. When inpatient rehabilitation has a bed for him, he can be transferred. Job ID: [id number]
[2018-12-21] MEDS: cloNIDine 0.1 MG TAB PO SCH ×3 (08:53→20:38)
[2018-12-21] MEDS: Lisinopril 5 MG TAB PO SCH ×2 (08:53→20:37)
[2018-12-21] MEDS: Amlodipine 10 MG TAB PO SCH (08:53)
[2018-12-21] MEDS: Famotidine 20 MG TAB PER TUBE SCH ×2 (08:53→20:37)
[2018-12-21] MEDS: levETIRAcetam 500 mg/5 ml Oral Solution PER TUBE SCH ×2 (08:53→20:37)
[2018-12-21] MEDS: hydrALAZINE 25 MG TAB PER TUBE SCH ×3 (08:54→20:39)
[2018-12-21] MEDS: Scopolamine 1.5 mg/72 hour Patch TD SCH (08:54)
[2018-12-21] MEDS: Metamucil PACK PER TUBE SCH ×2 (08:55→20:37)
--- NOTE | 2018-12-21 09:59 | PRG ---
DATE OF SERVICE: 12/21/2018 SUBJECTIVE: He remains in the IMCU. We are still awaiting rehab placement. OBJECTIVE: VITAL SIGNS: Temperature 98.4, pulse 75, and blood pressure 112/67. HEENT: Remarkable for contorted head from missing skull flap. NECK: Trach in good position. LUNGS: Clear. CARDIAC: S1 and S2. Regular. ABDOMEN: Soft. EXTREMITIES: He is flaccid on his left side. LABORATORY DATA: He had no labs done today. ASSESSMENT: 1. Status post right parietal intraparenchymal bleed with subsequent left-sided hemiparesis. 2. Status post trach. 3. Underlying obstructive sleep apnea. PLAN: Assuming to be stable from a Pulmonary standpoint. We are awaiting rehab transfer. Job ID: [id number]
--- NOTE | 2018-12-21 16:55 | PDOC.HOSPP ---
- Subjective Encounter Date: 12/21/18 Encounter Time: 11:40 Subjective: Pt seen for followup re:intracranial bleed. Feels better. - Objective Vital Signs & Weight: Vital Signs (12 hours) Temp Pulse BP Pulse Ox 12/21/18 16:20 82 104/62 12/21/18 08:54 82 104/62 12/21/18 08:53 82 104/62 12/21/18 07:47 100 12/21/18 06:51 98.4 F 12/21/18 06:26 100 Weight Admit Weight 275 lb 9.245 oz Weight 249 lb 6 oz Most Recent Monitor Data Heart Rate from ECG 69 NIBP 100/51 NIBP BP-Mean 67 Respiration from ECG 18 SpO2 96 I&O: 12/20/18 12/21/18 12/22/18 06:59 06:59 06:59 Intake Total 2040 2915 600 Balance 2040 2915 600 Result Diagrams: 12/18/18 07:37 12/09/18 06:08 Additional Labs: labs and MARs reviewed by me EKG Reviewed by me: Yes (Tele: NSR) Hospitalist ROS - Review of Systems Cardiovascular: denies: chest pain, palpitations, orthopnea, paroxysmal noc. dyspnea, edema, light headedness Gastrointestinal: denies: nausea, vomiting, abdominal pain, diarrhea, constipation, melena, hematochezia - Medication Medications: Active Medications Generic Name Dose Route Start Last Admin Trade Name Freq PRN Reason Stop Dose Admin Acetaminophen 650 mg 12/03/18 12:15 12/20/18 22:44 Tylenol Elixir PO 650 mg Q4H PRN Administration Headache/Fever/Mild Pain (1-3) Amlodipine Besylate 10 mg 12/03/18 09:00 12/21/18 08:53 Norvasc PO 10 mg DAILY ALON Administration Clonidine 0.1 mg 12/10/18 09:00 12/21/18 16:20 Catapres PO Not Given TID ALON Famotidine 20 mg 12/05/18 09:00 12/21/18 08:53 Pepcid PER TUBE 20 mg BID ALON Administration Hydralazine HCl 10 mg 12/02/18 10:16 12/08/18 12:36 Apresoline SLOW IVP 10 mg Q4H PRN Administration SBP > 180 and HR < 70 Hydralazine HCl 50 mg 12/10/18 09:00 12/21/18 16:20 Apresoline PER TUBE Not Given TID ALON Labetalol HCl 10 mg 12/03/18 07:46 12/08/18 13:29 Normodyne SLOW IVP 10 mg Q2H PRN Administration Blood Pressure Levetiracetam 500 mg 12/10/18 09:00 12/21/18 08:53 Keppra Oral Solution PER TUBE 500 mg BID ALON Administration Lisinopril 5 mg 12/10/18 09:00 12/21/18 08:53 Zestril PO 5 mg BID ALON Administration Morphine Sulfate 2 mg 12/11/18 18:10 12/21/18 03:21 Morphine SLOW IVP 2 mg Q4H PRN Administration Moderate Pain (4-6) Psyllium Hydrophilic Mucilloid 1 pk 12/09/18 21:00 12/21/18 08:55 Metamucil PER TUBE 1 pk BID ALON Administration Scopolamine 1.5 mg 12/12/18 08:15 12/21/18 08:54 Transderm Scop TD 1.5 mg Q3D ALON Administration Sodium Chloride 10 ml 12/02/18 19:37 12/16/18 23:45 Flush - Normal Saline IVF 10 ml PRN PRN Administration Saline Flush - Exam General - other findings: Obese Eye: anicteric sclera ENT: moist mucosa Neck: supple Heart: RRR, no rubs Respiratory: CTAB Gastrointestinal: soft, non-tender Skin: no lesions Neurological: hemiplegia Psychiatric: normal affect Hosp A/P (1) Intracranial hemorrhage Code(s): I62.9 - NONTRAUMATIC INTRACRANIAL HEMORRHAGE, UNSPECIFIED Status: Acute (2) Obesity (BMI 30-39.9) Code(s): E66.9 - OBESITY, UNSPECIFIED Status: Chronic - Plan PT/OT, out of bed/ambulate s/p cranial flap. Pt awaiting Inpt Rehab bed for further management. Likely to Rehab tomorrow.
[2018-12-21] MEDS: Acetaminophen 650 MG/20.3 ML UDCUP PO PRN (20:37)
[2018-12-21 20:40] VITALS: BP 110/58
[2018-12-22] MEDS: Acetaminophen 650 MG/20.3 ML UDCUP PO PRN (04:12)
--- NOTE | 2018-12-22 08:01 | PRG ---
DATE OF SERVICE: 12/22/2018 I saw Anita Olivier in the [facility] this morning. He is up watching TV. He asked me when he is going to go home. We talked about inpatient rehabilitation and he finally agrees that he would benefit from it. Vital signs look stable. The tracheostomy still in place. He has no purposeful motion on the left side with the exception of a flicker of the quadriceps on command. The right side is moving well and his language function seems to be preserved. I anticipate Mr. Olivier will have his bone flap replacement in a few months. He may have CSF accumulated under his skull flap at the three months timeframe, this may have resolved. Occasionally, we will have to put in a drain or shunt to aid with bone flap replacement, but that decision will be made down the road. We will make followup appointment in our clinic in about 2 months, so we can start the process of planning for cranioplasty. Job ID: [id number]
--- NOTE | 2018-12-22 09:21 | PRG ---
DATE OF SERVICE: 12/22/2018 SUBJECTIVE: He is complaining of some abdominal pain. According to the nurse, he has not complained about this previously and is not having any trouble with his tube feeds or gastric residuals. OBJECTIVE: VITAL SIGNS: Temperature 97.9, pulse 65, blood pressure 97/64, and O2 saturation 97%. HEENT: Unremarkable. NECK: No JVD. Trach in good position. LUNGS: Clear. CARDIAC: S1 and S2. Regular. ABDOMEN: Mildly tender to deep palpation. PEG tube looks to be in good position. EXTREMITIES: No edema. ASSESSMENT: 1. Nonspecific abdominal pain. 2. Status post trach for obstructive sleep apnea. 3. Status post intracranial hemorrhage. PLAN: I would watch the abdominal pain right now and not looked that necessarily delay his discharge. He may need to have his antihypertensive doses reduced as his blood pressure is becoming normalized with time. Job ID: [id number]
[2018-12-22] MEDS: levETIRAcetam 500 mg/5 ml Oral Solution PER TUBE SCH (09:39)
[2018-12-22] MEDS: cloNIDine 0.1 MG TAB PO SCH (09:39)
[2018-12-22] MEDS: Famotidine 20 MG TAB PER TUBE SCH (09:40)
[2018-12-22] MEDS: Amlodipine 10 MG TAB PO SCH (09:40)
[2018-12-22] MEDS: Lisinopril 5 MG TAB PO SCH (09:40)
[2018-12-22] MEDS: hydrALAZINE 25 MG TAB PER TUBE SCH (09:40)
[2018-12-22] MEDS: Metamucil PACK PER TUBE SCH (09:41)
--- NOTE | 2018-12-22 11:14 | DIS ---
DATE OF ADMISSION: 12/01/2018 DATE OF DISCHARGE: 12/22/2018 PRIMARY CARE PROVIDER: Unknown. DISCHARGE DIAGNOSES: 1. Intracranial bleed. 2. Acute hypoxic respiratory failure. 3. Acute metabolic encephalopathy. 4. Pulmonary edema. 5. Hypertensive crisis. 6. Hypokalemia. CONDITION OF PATIENT ON THE DAY OF DISCHARGE: Stable. PHYSICAL EXAMINATION: GENERAL: I assessed Mr. Olivier on the day of discharge. He denies any chest pain or shortness of breath. VITAL SIGNS: Stable. CARDIOVASCULAR: S1 and S2 are heard, regular. LUNGS: Clear to auscultation bilaterally. NEUROLOGIC: He has left-sided weakness. FOLLOWUP APPOINTMENTS: The patient is advised to follow up with Dr. Wing, with primary care provider, and with Dr. Neil Haile. CONSULTATIONS DURING THIS HOSPITALIZATION: Dr. Wing and Dr. Haile. DISCHARGE MEDICATIONS: 1. Amlodipine 10 mg daily. 2. Clonidine 0.1 mg every 4 hours as needed and 0.1 mg 3 times a day. 3. Hydralazine 50 mg 3 times a day. 4. DuoNebs 3 mL every 6 hours as needed. 5. Keppra 500 mg 2 times a day. 6. Lisinopril 5 mg 2 times a day. 7. Psyllium 1 packet per tube 2 times a day. 8. Scopolamine 1.5 mg transdermal patch every 72 hours. HOSPITAL COURSE: Mr. Olivier is a pleasant 43-year-old gentleman, who was admitted to [facility] on December 01, 2018, for stroke-like symptoms. He was found on at home with left-sided deficits. He was unable to speak en route. He got intubated in the emergency room. He was started on Cardene drip for hypertensive emergency. CT scan showed large acute right basal ganglia hematoma. CT scan on December 02 did not show any significant change. He was extubated on December 02. He subsequently became more somnolent and had extensor posturing and large nonreactive pupil. He was re-intubated. He underwent right decompressive craniectomy by Neurosurgery Service. On December 05, he had PEG tube and tracheostomy. He was started on PEG tube feeds. On December 06, he spiked a fever and was started on Zosyn. Final blood cultures were negative. On December 08, 2018, he had bilateral lower extremity Dopplers, which did not show any DVT. Tracheostomy collar trials were started on December 07, 2018. On December 11, 2018, he was transferred to [facility] from the Critical Care Unit. On December 18, his tracheostomy was downsized and speaking valve trial was started. He continued to improve clinically in terms of speaking. He continues to have ongoing left-sided weakness. He has been accepted for inpatient rehab at [facility]. He is being transferred there for the same. DISCHARGE DESTINATION: [facility]. TIME SPENT: Total amount of time spent coordinating this discharge: 34 minutes. Job ID: [id number]
[2018-12-22 11:32] VITALS: TEMP 98.4
== END 2018-12-22 12:00 | DRG 3 ==
LOC: ERS 23:36 → CCU 12-01 02:00 → IMCU/EMU 12-11 20:30
PROVIDERS: ADMIT Hospitalist; ATTEND Hospitalist
PROC: 5A1945Z Respiratory Ventilation, 24-96 Consecutive Hours (ICD-10-PCS; 2018-12-01)
PROC: 0BH17EZ Insertion of Endotracheal Airway into Trachea, Via Natural or Artificial Opening (ICD-10-PCS; 2018-12-01)
PROC: 00N00ZZ Release Brain, Open Approach (ICD-10-PCS; principal; 2018-12-02)
PROC: 0W310ZZ Control Bleeding in Cranial Cavity, Open Approach (ICD-10-PCS; 2018-12-02)
PROC: 5A1955Z Respiratory Ventilation, Greater than 96 Consecutive Hours (ICD-10-PCS; 2018-12-02)
PROC: 0BH18EZ Insertion of Endotracheal Airway into Trachea, Via Natural or Artificial Opening Endoscopic (ICD-10-PCS; 2018-12-02)
PROC: 0B113F4 Bypass Trachea to Cutaneous with Tracheostomy Device, Percutaneous Approach (ICD-10-PCS; 2018-12-05)
PROC: 0DH63UZ Insertion of Feeding Device into Stomach, Percutaneous Approach (ICD-10-PCS; 2018-12-05)
DX: I61.0 Nontraumatic intracerebral hemorrhage in hemisphere, subcortical (principal); G93.5 Compression of brain; G93.41 Metabolic encephalopathy; J96.01 Acute respiratory failure with hypoxia; J96.02 Acute respiratory failure with hypercapnia; I16.1 Hypertensive emergency; J81.1 Chronic pulmonary edema; G81.94 Hemiplegia, unspecified affecting left nondominant side; G93.2 Benign intracranial hypertension; G47.33 Obstructive sleep apnea (adult) (pediatric); E87.6 Hypokalemia; E66.01 Morbid (severe) obesity due to excess calories; I10 Essential (primary) hypertension; F17.210 Nicotine dependence, cigarettes, uncomplicated; R40.2362 Coma scale, best motor response, obeys commands, at arrival to emergency department; R40.2132 Coma scale, eyes open, to sound, at arrival to emergency department; R40.2242 Coma scale, best verbal response, confused conversation, at arrival to emergency department; D64.9 Anemia, unspecified; Z68.34 Body mass index [BMI] 34.0-34.9, adult; Z91.19 Patient's noncompliance with other medical treatment and regimen; Z78.1 Physical restraint status
CPT/HCPCS: 31500; 36415; 36416; 51702; 70450; 71045; 80048; 80053; 80306; 81003; 82550; 82805; 83605; 84484; 85025; 85610; 85730; 86850; 86900; 86901; 87040; 87086; 93005; 93010; 93970; 94002; 94003; 94640; 94660; 94760; 96365; 96368; 96375; 96376; 99292; A4217; C1769; J0360; J0690; J1100; J1170; J1200; J1940; J1953; J2001; J2060; J2250; J2270; J2543; J2704; J3010; J3480; J3490; J7050; J7799; S0028

== ENCOUNTER 2018-12-23 05:16 | Emergency (ER) | payer BC ==
[2018-12-23 06:00] LABS: Hemoglobin 12.4 g/dL (14.0-18.0); Mean Corpuscular HGB CONC 31.8 g/dL (32.0-36.0); Mean Corpuscular Hemoglobin 30.7 pg (27.0-31.0); Mean Corpuscular Volume 96.6 fL (78.0-98.0); RBC Distribution Width 11.6 % (11.5-14.5); Red Blood Cell (RBC) Count 4.03 mill/uL (4.70-6.10); White Blood Cell (WBC) Count 11.5 thou/uL (4.8-10.8)
[2018-12-23 06:12] LABS: ALT (SGPT) 131 U/L (8-55); AST (SGOT) 66 U/L (5-34); Albumin 3.4 g/dL (3.5-5.0); Alkaline Phosphatase 141 U/L (40-110); Anion Gap 14 mmol/L (10-20); BUN (Urea Nitrogen) 18 mg/dL (8.9-20.6); Bilirubin, Total 0.4 mg/dL (0.2-1.2); Calc. Creatinine Clearance 0 mL/min (70-130); Calcium 9.6 mg/dL (7.8-10.44); Carbon Dioxide 30 mmol/L (22-29); Chloride 101 mmol/L (98-107); Estimated GFR-MDRD Greater than 90; Globulin 4.6 g/dL (2.4-3.5); Glucose 115 mg/dL (70-105); Lipase 183 U/L (8-78); Potassium 4.8 mmol/L (3.5-5.1); Sodium 140 mmol/L (136-145)
[2018-12-23 06:19] LABS: Band 2 % (5-11); Lymphocytes 13 % (21-51); MDiff Complete? YES; Mean Platelet Volume 9.2 fL (7.4-10.4); Monocytes 9 % (0-10); Neutrophil 76 % (42-75); Platelet Count 295 thou/uL (130-400)
--- NOTE | 2018-12-23 07:44 | CT ---
CT ABDOMEN AND PELVIS WITH IV CONTRAST: INDICATIONS: History of abdominal pain. COMPARISON: None. FINDINGS: There is mild bibasilar atelectasis. No focal hepatic lesion is evident. The visualized gallbladder, pancreas, and adrenal glands are normal appearing. There is a percutaneou s gastrostomy tube in place. The kidneys are normal appearing. No free fluid is evident. The small bowel is of normal caliber. There is a normal appendix in the right lower quadrant. The bladder, rectum and perirectal soft tissues are unremarkable appearing. There is a mild amount of retained stool within the colon. No free fluid is evident within the pelvis. No definite acute osseous abnormality is evident. IMPRESSION: 1. Bibasilar atelectasis. 2. Percutaneous gastrostomy tube. 3. Mild amount of retained stool within the colon. POS: BH
[2018-12-23] MEDS ORDERED: ISOVUE-370 76%-LOCM 1 ML ONE (12:15)
== END 2018-12-23 06:58 | disposition home or self-care (01) ==
LOC: ERS 05:16
DX: Z43.0 Encounter for attention to tracheostomy (principal); K85.90 Acute pancreatitis without necrosis or infection, unspecified; I10 Essential (primary) hypertension; G47.30 Sleep apnea, unspecified; D64.9 Anemia, unspecified; J96.00 Acute respiratory failure, unspecified whether with hypoxia or hypercapnia; Z79.899 Other long term (current) drug therapy
CPT/HCPCS: 74177; 83690

== ENCOUNTER 2019-03-01 10:14 | Inpatient (IN) | payer BC ==
--- NOTE | 2019-02-28 23:32 | HP ---
REASON FOR ADMISSION: Skull defect, here for cranioplasty. HISTORY OF PRESENT ILLNESS: Mr. Olivier is a 43-year-old gentleman known to our Neurosurgery service from his previous admission for intracerebral hemorrhage. He was seen in November of this year. Right-sided basal ganglia and internal capsule hemorrhage complicated by vasogenic edema and increased intracranial pressure. He underwent craniectomy during that hospitalization and since then has been in inpatient rehabilitation and [facility]. He now presents 3 months later for recreation of his cranial vault. His blood pressure is under better control. PAST MEDICAL HISTORY: Hypertension, previously noncompliant with medications. PAST SURGICAL HISTORY: Craniectomy for intracerebral hemorrhage. MEDICATIONS: lisinopril, clonidine, famotidine, amlodipine, citalopram, levitiracetam, . ALLERGIES: NO KNOWN DRUG ALLERGIES. SOCIAL HISTORY: The patient drinks socially. Denies drug use. He used tobacco by smoking cigarettes prior to his intracranial hemorrhage. He was living at home with family before this started. FAMILY HISTORY: There is no family history of intracerebral hemorrhage. There is family history of hypertension. REVIEW OF SYMPTOMS: otherwise negative. PHYSICAL EXAMINATION: GENERAL: Soy has a left field defect. He takes assistance of 2 people to walk. He has a left arm greater than left leg hemiparesis. He has mild left cortical sensory loss. Admission findings and test results of CT examination reveals good resolution of the intracerebral hemorrhage. The ventricular system on the left side is larger. There is a bit of fluid in the craniectomy defect. 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 PLAN: Cranioplasty. Informed consent: I discussed indications, risks, benefits, alternatives and expected outcomes from surgery. The risks we discussed included, but were not limited to, infection, bleeding, CSF leak, brain damage, significant loss of neurologic function, seizure, stroke, paralysis, dependence for care, cardiopulmonary complications of anesthesia, and . Long-term complications included, but were not limited to hydrocephalus and need for future surgery. He understands the risks and is willing to proceed. We will take Mr. Olivier to the operating room and reapproximate his skull flap, this may necessitate placement of an external ventricular drain and a decision will be made in the operating room. Job ID: [id number] [facility]
[2019-03-01] MEDS ORDERED: Sodium Chloride 0.9% 10 ML ONE ×2 (10:45→10:46)
[2019-03-01] MEDS ORDERED: Thrombin 5000 UNITS/5 ML VIAL ONE (10:45)
[2019-03-01] MEDS ORDERED: Fentanyl 100 MCG/2 ML VIAL ONE ×3 (10:51→15:20)
[2019-03-01 10:55] LABS: #Basophils 0.1 thou/uL (0.0-0.2); #Eosinphils 0.1 thou/uL (0.0-0.7); #Lymphocytes 2.1 thou/uL (1.20-3.40); #Monocytes 0.9 thou/uL (0.11-0.59); #Neutrophils 6.3 thou/uL (1.40-6.50); %Basophils 1.3 % (0.0-1.0); %Eosinophils 1.2 % (0.0-10.0); %Lymphocytes 21.5 % (21.0-51.0); %Monocytes 9.9 % (0.0-10.0); %Neutrophils 66.2 % (42.0-75.0); Hemoglobin 13.7 g/dL (14.0-18.0); Mean Corpuscular HGB CONC 31.2 g/dL (32.0-36.0); Mean Corpuscular Hemoglobin 29.2 pg (27.0-31.0); Mean Corpuscular Volume 93.4 fL (78.0-98.0); Mean Platelet Volume 7.9 fL (7.4-10.4); Platelet Count 236 thou/uL (130-400); RBC Distribution Width 12.4 % (11.5-14.5); Red Blood Cell (RBC) Count 4.71 mill/uL (4.70-6.10); White Blood Cell (WBC) Count 9.6 thou/uL (4.8-10.8)
[2019-03-01 11:21] LABS: Prothrombin Time 12.6 SEC (12.0-14.7)
[2019-03-01 11:22] LABS: PTT 31.2 SEC (22.9-36.1)
[2019-03-01] MEDS ORDERED: Ondansetron PF 4 MG/2 ML Vial IVP PRN (11:42)
[2019-03-01] MEDS ORDERED: hydrALAZINE 20 MG/ML VIAL SLOW IVP PRN (11:42)
[2019-03-01] MEDS ORDERED: Fleet Enema 133 ML BOT PR PRN (11:42)
[2019-03-01] MEDS ORDERED: Promethazine HCl 12.5 MG SUPP PR PRN (11:42)
[2019-03-01] MEDS ORDERED: diphenhydrAMINE 50 MG/ML VIAL IVP PRN (11:42)
[2019-03-01] MEDS ORDERED: Promethazine HCl 25 MG/ML VIAL IM PRN ×2 (11:42→14:54)
[2019-03-01] MEDS ORDERED: diphenhydrAMINE 50 MG CAP PO PRN (11:42)
[2019-03-01] MEDS ORDERED: Acetaminophen 650 MG Suppository PR PRN (11:42)
[2019-03-01] MEDS ORDERED: Promethazine 25 MG TAB PO PRN (11:42)
[2019-03-01] MEDS ORDERED: Docusate 100 MG CAP PO PRN (11:42)
[2019-03-01] MEDS ORDERED: HYDROcodone/Acetaminophen 7.5/325 mg Tablet PO PRN (11:42)
[2019-03-01] MEDS ORDERED: Labetalol HCl 100 MG/20 ML VIAL SLOW IVP PRN (11:42)
[2019-03-01] MEDS ORDERED: Mag-Al 1200 mg/1200 mg/30 ML UDCUP PO PRN (11:42)
[2019-03-01] MEDS ORDERED: Lidocaine 0.5%/Epinephrine 1:200,000 50 ml Vial ONE (11:56)
[2019-03-01] MEDS ORDERED: Glycopyrrolate 0.2 MG/ML 5 ML SYRINGE ONE (12:49)
[2019-03-01] MEDS ORDERED: PHENYLEPHRINE-NS 100 MCG/ML 10 ML SYRINGE ONE (12:49)
[2019-03-01] MEDS ORDERED: Dexamethasone 20 MG/5 ML VIAL ONE (12:49)
[2019-03-01] MEDS ORDERED: Ondansetron PF 4 MG/2 ML Vial ONE (12:49)
[2019-03-01] MEDS ORDERED: Rocuronium Bromide 10 MG/ML (10ML VIAL) ONE (12:49)
[2019-03-01] MEDS ORDERED: ePHEDrine/0.9% NaCl/PF SYRINGE 50 mg/10 ml ONE (12:49)
[2019-03-01] MEDS ORDERED: Metoprolol Tartrate 5 MG/5 ML VIAL ONE (12:49)
[2019-03-01] MEDS ORDERED: CEFAZOLIN 2 GM in Premix Bag 1 BAG IVPB SCH (14:00)
[2019-03-01] MEDS ORDERED: Promethazine HCl 25 MG/ML VIAL SLOW IVP PRN (14:54)
[2019-03-01] MEDS ORDERED: Ondansetron HCl/PF 4 MG/2 ML Vial IVP PRN (14:54)
[2019-03-01] MEDS: Sodium Chloride 0.9% 1,000 ML IV SCH (16:30)
[2019-03-01] MEDS: Dexamethasone 1 MG TAB PO SCH ×2 (17:19→17:31)
[2019-03-01] MEDS: Morphine 2 MG/ML SYRINGE SLOW IVP PRN (17:29)
[2019-03-01] MEDS: Labetalol HCl 100 MG/20 ML VIAL SLOW IVP PRN (18:40)
[2019-03-01] MEDS: CEFAZOLIN 2 GM in Premix Bag 1 BAG IVPB SCH (19:52)
[2019-03-01] MEDS: Famotidine 20 MG TAB PO SCH (20:05)
[2019-03-01] MEDS: Famotidine/PF 20 mg/2ml Vial SLOW IVP SCH (20:26)
[2019-03-02] MEDS: Dexamethasone 1 MG TAB PO SCH ×4 (00:04→18:59)
[2019-03-02] MEDS: CEFAZOLIN 2 GM in Premix Bag 1 BAG IVPB SCH ×3 (04:28→21:39)
[2019-03-02] MEDS: Labetalol HCl 100 MG/20 ML VIAL SLOW IVP PRN ×3 (05:08→21:45)
--- NOTE | 2019-03-02 07:45 | PRG ---
DATE OF SERVICE: 03/02/2019 Mr. Anita Olivier is 1 day out from replacement of his bone flap. He is awake this morning and talking to me. He looks happy that he had it done. He still has left-sided hemiparesis, worse in the face and arm than the leg. Nonetheless, there is a minimal motion of the arm, there is extension of the leg. The right side is working normally and his speech is normal. He has a heavy feeling in his head, but otherwise he is encouraged by his result. No drainage was necessary from the external ventricular drain. I will remove it later this morning and place a staple. When it is out, he can move to floor care or back to his care facility. Job ID: [id number]
--- NOTE | 2019-03-02 08:02 | CT ---
PRELIMINARY REPORT/[facility]/EMERGENCY AFTER HOURS PROCEDURE: EXAM: Noncontrast CT brain HISTORY: S/P CRANIOTOMY COMPARISON: None submitted. FINDINGS: Status post right frontoparietal craniotomy. Right frontal ventriculostomy shunt catheter is seen traversing the frontal horn right lateral ventri rosy with the tip terminating near the midline. Pneumocephalus compatible with recent surgery. Air i s also seen in the ventricle. The right lateral ventricle is slightly larger than the left. If no midline shift is seen. Hypodensity seen in the right frontal lobe. Small extra-axial blood seen in the right frontotemporal lobe subjacent to craniotomy, likely postoperative and amenable to interval followup. IMPRESSION: Postoperative changes including right frontal parietal craniotomy and probable small postoperative ex tra-axial blood, as detailed above. ELECTRONICALLY SIGNED BY: Vicki Mabry MD Mar 02, 2019 4:42:33 AM [facility] This report is intended for review by the ordering physician only, in accordance of law. If you recei ve this report in error, please call [facility] at [phone]. FINAL REPORT EMERGENT AFTER HOURS CT OF THE DENYS WITHOUT CONTRAST: COMPARISON: 12/13/2018. FINDINGS/IMPRESSION: I agree with the findings and impression given in the preliminary report per [facility] physici an. There are postoperative changes in the right frontal and parietal calvarium. There is evacuatio n of the previously seen hemorrhage. A ventriculostomy catheter is seen with its tip in good positio n. There may be a small amount of blood in the operative bed beneath the calvarium.
[2019-03-02] MEDS: Sodium Chloride 0.9% 1,000 ML IV SCH ×2 (08:15→15:40)
[2019-03-02] MEDS ORDERED: FLU VACC QS2019-20(6MOS UP)/PF 60 MCG/0.5 ML SYRINGE IM ONE (09:00)
[2019-03-02] MEDS ORDERED: Prevnar 13-Val Conj/PF 0.5 ML SYRINGE IM ONE (09:00)
[2019-03-02] MEDS: Famotidine/PF 20 mg/2ml Vial SLOW IVP SCH ×2 (09:05→21:40)
[2019-03-02] MEDS: Famotidine 20 MG TAB PO SCH (09:06)
--- NOTE | 2019-03-02 09:27 | OP ---
DATE OF PROCEDURE: 03/01/2019 [employer] SERVICE: None. PREOPERATIVE INDICATION: Protect brain, prevent neurological deterioration. PREOPERATIVE DIAGNOSIS: Prior intracerebral hemorrhage requiring craniectomy to treat intracranial hypertension, current skull defect. POSTOPERATIVE DIAGNOSIS: Prior intracerebral hemorrhage requiring craniectomy to treat intracranial hypertension, current skull defect. PROCEDURES PERFORMED: Reopening cranial incision, replacement of bone flap for cranioplasty of a defect larger than 15 cm, and placement of external ventricular drain (ventriculostomy). PREOPERATIVE MEDICATIONS: Ancef 2 g IV. DRAIN NUMBER: One. DRAIN TYPE: External ventricular. DESCRIPTION OF PROCEDURE: The patient was brought to the operating room. General endotracheal anesthesia was induced. The patient was positioned supine, and the right shoulder was bumped. The head was turned parallel to the floor and supported by a gel-filled doughnut shaped headrest. Hair was removed from the right side of the scalp with electric clippers. We infused local anesthetic under our previous incision. The scalp was sterilely prepped and draped. We reopened our previous incision with a 10-blade knife and controlled bleeding with bipolar and monopolar cautery. We carried our opening all the way down to the mentasta skull just lateral to the craniectomy defect. We folded our scalp flap forward and held it in place under fishhooks. This allowed us to dissect the frontal portion of the craniectomy defect and the temporal portion. Here, we had to separate the dura from the undersurface of the temporalis muscle, but this was done cleanly in the area of the pterion. Once we identified the bony edge, we mobilized scar tissue off the medial portion of the edges. We found that the skull flap would not reapproximate without pressure applied, so we decided to place the external ventricular drain. We drilled an extra hole in the parietal region to access the occipital horn, which was unsuccessful, but we passed the drain easily through the parenchyma of the middle frontal gyrus into the frontal horn of the lateral ventricle. We then added an extra hole to the skull flap, which was brought out of the frozen sterile bags in a meticulous and sterile fashion. This extra hole allowed the passage of the external ventricular drain. We re-warmed the skull flap carefully with bacitracin irrigation. We reapproximated the small frontal flap that was added to our craniectomy during the previous surgery with plates and screws. We then added titanium plates to the edges of the flap itself, passed the drain through the flap and then reapproximated the flap to the skull with titanium screws. This was done quite easily without any pressure added due to the decompression of the ventricular system. We irrigated copiously with bacitracin irrigation. We added a paste of vancomycin powder around the edges of the flap. We passed our external ventricular drain through the scalp flap and then, we closed the wound in anatomical layers. We attached the external ventricular drain to the drainage systems in a sterile fashion. We left this clamped. We added sterile dressings and transported the patient back to the transport cart. This was a clean case, no contamination. Job ID: [id number]
[2019-03-02] MEDS: HYDROcodone/Acetaminophen 7.5/325 mg Tablet PO PRN ×2 (11:30→21:40)
--- NOTE | 2019-03-02 12:34 | CON ---
DATE OF CONSULTATION: 03/02/2019 SERVICE: Pulmonary Medicine. REASON FOR CONSULTATION: ICU patient. HISTORY OF PRESENT ILLNESS: The patient is a 43-year-old male with past medical history significant for remote stroke. He ended up having a bone flap removed. He was recovering in an inpatient rehabilitation center. He presented for the cranioplasty. An EVD is currently in place. He denies any current fevers or chills. He does not have much of an appetite presently. Otherwise, he is in his usual state of health. PAST MEDICAL HISTORY: 1. Hypertension. 2. History of intracranial hemorrhage with debility. PAST SURGICAL HISTORY: 1. Craniectomy for intracerebral hemorrhage. 2. Replacement of bone flap with EVD placement. FAMILY HISTORY: Noncontributory. SOCIAL HISTORY: The patient previously drinks socially. Denies any alcohol or illicit drug use. He has no exposure to chemicals, dust, asbestos, or tuberculosis at this time. ALLERGIES: NO KNOWN DRUG ALLERGIES. MEDICATIONS: List of his inpatient medications were reviewed. No specific updates were made at this time. REVIEW OF SYSTEMS: General, head, ears, eyes, nose, throat, cardiovascular, respiratory, GI, , musculoskeletal, neurologic, and skin is negative except as mentioned in the HPI. PHYSICAL EXAMINATION: VITAL SIGNS: Afebrile; pulse 89; blood pressure 137/107; respirations 18; and saturation 95%, currently on room air. GENERAL: The patient is awake and alert, in no apparent distress. LUNGS: With good air entry. No prolonged expiratory phase, wheezing, or crackles are appreciated. HEART: Normal rate, regular. ABDOMEN: Soft, nontender, and nondistended. Bowel sounds are positive. MUSCULOSKELETAL: No cyanosis or clubbing. No pitting in bilateral lower extremities. NEUROLOGIC: He has good use of the right upper and lower extremity. He attends common understands. He has a good swallow. His pupils are equal, round, and reactive. That being said, his left side is fairly flaccid. LABORATORY DATA: CBC and INR are unremarkable. IMAGING DATA: CT of the brain demonstrates postop changes including right frontoparietal craniotomy and small postoperative extra-axial blood. ASSESSMENT: 1. History of intracranial hemorrhage, status post bone flap removal and subsequent replacement, postop day 1. 2. Hypertension. DISCUSSION AND PLAN: The patient is doing very well in the postoperative period. He will remain in the ICU while the EVD remains in place. Pulmonary/Critical Care will continue to follow in this location. If he is transitioned to the floor, I will sign off. I will repeat some basic laboratories tomorrow morning. 70 minutes have been devoted to this patient in various activities. I personally reviewed all imaging studies and laboratory data noted within this document. For fifty percent of this time, I was interacting with the patient at the bedside or coordinating care with the care team. For the remainder of the time I was immediately available to the patient in the hospital unit. Job ID: [id number] MTDD
[2019-03-02 14:47] VITALS: BMI 34.0
[2019-03-03] MEDS: Dexamethasone 1 MG TAB PO SCH ×4 (00:20→18:41)
[2019-03-03] MEDS: Morphine 2 MG/ML SYRINGE SLOW IVP PRN (02:11)
[2019-03-03] MEDS: Sodium Chloride 0.9% 1,000 ML IV SCH ×3 (02:12→18:22)
[2019-03-03] MEDS: Labetalol HCl 100 MG/20 ML VIAL SLOW IVP PRN ×3 (02:13→10:11)
[2019-03-03] MEDS: Acetaminophen 325 MG TAB PO PRN ×2 (02:14→21:56)
[2019-03-03] MEDS: CEFAZOLIN 2 GM in Premix Bag 1 BAG IVPB SCH ×3 (04:56→21:50)
[2019-03-03] MEDS: Famotidine 20 MG TAB PO SCH ×2 (06:13→10:12)
[2019-03-03 06:21] LABS: Phosphorus 3.9 mg/dL (2.3-4.7)
[2019-03-03 06:24] LABS: Anion Gap 15 mmol/L (10-20); BUN (Urea Nitrogen) 11 mg/dL (8.9-20.6); Calc. Creatinine Clearance 186 mL/min (70-130); Calcium 9.3 mg/dL (7.8-10.44); Carbon Dioxide 25 mmol/L (22-29); Chloride 104 mmol/L (98-107); Estimated GFR-MDRD Greater than 90; Glucose 111 mg/dL (70-105); Sodium 140 mmol/L (136-145)
[2019-03-03] MEDS: Famotidine/PF 20 mg/2ml Vial SLOW IVP SCH (10:11)
[2019-03-03] MEDS: HYDROcodone/Acetaminophen 7.5/325 mg Tablet PO PRN (10:23)
--- NOTE | 2019-03-03 10:40 | PRG ---
DATE OF SERVICE: 03/03/2019 SUBJECTIVE: Patient is a 43-year-old male status post craniectomy in November for intracranial hemorrhage with cranioplasty on 02/28/2019. Following the surgery , he did require EVD placement for assistance in decompression and getting the cranioplasty back in place. This was clamped over the first night and removed on postoperative day #1. He was then transitioned to the stroke unit where his pain has been well controlled with p.o. medications. He has been tolerating regular diet, and he has been voiding appropriately. OBJECTIVE: On exam this morning, the patient is awake, alert, he is conversant and is not complaining of any pain. He has some left-sided hemiparesis. His incision is clean, dry, and intact. The patient appears to be doing well and I feel that he is appropriate for transition to inpatient rehab at any point in time. Waiting insurance auth. We will work on placement at their facility. Job ID: [id number] MTDD
--- NOTE | 2019-03-03 11:07 | PRG ---
DATE OF SERVICE: 03/03/2019 Mr. Olivier continues to do well following replacement of his bone flap. He had a temporary EVD that was removed. His wounds are dry. The patient is generally stable for rehab placement when ready. Job ID: [id number]
[2019-03-03] MEDS ORDERED: hydrALAZINE 25 MG TAB PO PRN (14:16)
[2019-03-03] MEDS ORDERED: cloNIDine 0.1mg/24 Hour PATCH TD SCH (14:30)
[2019-03-03] MEDS ORDERED: Amlodipine 10 MG TAB PO SCH (14:45)
[2019-03-03] MEDS: levETIRAcetam 500 mg/5 ml Oral Solution PO SCH (21:53)
[2019-03-03] MEDS: Lisinopril 5 MG TAB PO SCH (21:53)
[2019-03-03] MEDS: Melatonin 3 MG TAB PO SCH (21:54)
[2019-03-04] MEDS: CEFAZOLIN 2 GM in Premix Bag 1 BAG IVPB SCH ×2 (04:10→14:08)
[2019-03-04] MEDS: Dexamethasone 1 MG TAB PO SCH ×4 (04:23→18:20)
[2019-03-04 05:13] LABS: Phosphorus 4.3 mg/dL (2.3-4.7)
[2019-03-04 05:14] LABS: Anion Gap 14 mmol/L (10-20); BUN (Urea Nitrogen) 12 mg/dL (8.9-20.6); Calc. Creatinine Clearance 181 mL/min (70-130); Calcium 9.5 mg/dL (7.8-10.44); Carbon Dioxide 28 mmol/L (22-29); Chloride 102 mmol/L (98-107); Estimated GFR-MDRD Greater than 90; Glucose 104 mg/dL (70-105); Magnesium 2.1 mg/dL (1.6-2.6); Potassium 3.8 mmol/L (3.5-5.1); Sodium 140 mmol/L (136-145)
[2019-03-04] MEDS: Sodium Chloride 0.9% 1,000 ML IV SCH ×2 (08:00→20:00)
--- NOTE | 2019-03-04 08:52 | PRG ---
DATE OF SERVICE: 03/04/2019 The patient is postoperative day #3, status post cranioplasty. He has been monitored in the stroke unit without any acute events. He is having no incisional issues. We are waiting on insurance authorization for return back to rehab. Overnight, his vital signs have been stable. He has been afebrile. On exam, the patient is awake, alert, no acute distress. His incision is clean, dry, and intact. He has left hemiparesis, which is consistent with his baseline exam. The patient remained stable on the stroke floor. We will continue to monitor closely, and the patient is able to transition to inpatient rehab when able. Job ID: [id number]
[2019-03-04] MEDS: Famotidine 20 MG TAB PO SCH (09:13)
[2019-03-04] MEDS: Lisinopril 5 MG TAB PO SCH ×2 (09:13→22:00)
[2019-03-04] MEDS: levETIRAcetam 500 mg/5 ml Oral Solution PO SCH ×2 (09:13→22:00)
[2019-03-04] MEDS: Citalopram 20 MG TAB PO SCH (09:13)
[2019-03-04] MEDS: Amlodipine 10 MG TAB PO SCH (09:13)
[2019-03-04] MEDS: Polyethylene Glycol 3350 17 GM Packet PO SCH (09:13)
[2019-03-04] MEDS: Melatonin 3 MG TAB PO SCH (22:01)
[2019-03-05] MEDS: Dexamethasone 1 MG TAB PO SCH ×2 (01:51→07:53)
[2019-03-05 05:51] LABS: Phosphorus 3.9 mg/dL (2.3-4.7)
[2019-03-05 05:53] LABS: Anion Gap 14 mmol/L (10-20); BUN (Urea Nitrogen) 16 mg/dL (8.9-20.6); Calc. Creatinine Clearance 215 mL/min (70-130); Calcium 9.6 mg/dL (7.8-10.44); Carbon Dioxide 26 mmol/L (22-29); Chloride 104 mmol/L (98-107); Estimated GFR-MDRD Greater than 90; Glucose 96 mg/dL (70-105); Magnesium 2.1 mg/dL (1.6-2.6); Potassium 4.1 mmol/L (3.5-5.1); Sodium 140 mmol/L (136-145)
[2019-03-05] MEDS ORDERED: CEFAZOLIN 2 GM in Premix Bag 1 BAG IVPB SCH (06:00)
--- NOTE | 2019-03-05 06:52 | PRG ---
DATE OF SERVICE: 03/05/2019 Mr. Olivier is 4 days out from replacement of his cranial bone flap. He had that removed in November for intracerebral hemorrhage to control intracranial pressure. Replacement was last and we have been waiting for inpatient rehabilitation placement. He moved out of the ICU after we got the external ventricular drain out. He has been doing relatively well in the Stroke Unit. I saw him this morning and he is awake and conversant. He has left face and arm greater than leg hemiparesis, which is stable. He has some fluid under the scalp, which is CSF. The cranial incision is well-approximated. The sutures look intact and there is no evidence of infection. I am going to continue IV antibiotic therapy until he is out of this hospital. Three weeks after his operation, the vertical mattress sutures can be removed and the scalp will need to be prepped with Betadine for that removal. Transfer to inpatient rehabilitation can be done anytime. Job ID: [id number]
[2019-03-05] MEDS: Dexamethasone 4 MG TAB PO SCH ×3 (07:12→18:32)
[2019-03-05] MEDS: Citalopram 20 MG TAB PO SCH (09:09)
[2019-03-05] MEDS: Famotidine 20 MG TAB PO SCH (09:09)
[2019-03-05] MEDS: levETIRAcetam 500 mg/5 ml Oral Solution PO SCH ×2 (09:09→20:34)
[2019-03-05] MEDS: Lisinopril 5 MG TAB PO SCH ×2 (09:10→20:24)
[2019-03-05] MEDS: Amlodipine 10 MG TAB PO SCH (09:10)
[2019-03-05] MEDS: Sodium Chloride 0.9% 1,000 ML IV SCH ×3 (09:10→22:40)
[2019-03-05] MEDS: Polyethylene Glycol 3350 17 GM Packet PO SCH (09:10)
[2019-03-05] MEDS ORDERED: Iopamidol 370 76% 100 ML VIAL ONE (11:10)
--- NOTE | 2019-03-05 14:10 | CT ---
NONCONTRAST HEAD CT AND POSTCONTRAST HEAD CT: HISTORY: Increased swelling. Status post craniotomy. COMPARISON: 03/02/2019. FINDINGS: NONCONTRAST HEAD CT: Interval removal of a ventriculoperitoneal shunt catheter. Slightly increased pneumocephalus in both frontal horns of the lateral ventricle. There is hemorrhage in the dependent portion of both lateral ventricles. No midline shift. Basilar cisterns are patent. Small amount of hemorrhage along the right temporal convexity. Stable hypoattenuation in the right frontal lobe. Postsurgical change involving the right calvarium. Marked soft tissue swelling, fluid and air along the right temporal and frontal scalp. Scalp swelling and fluid measures 9.4 x 2.6 cm. Postcontrast images do not demonstrate any pathologic enhancement of the brain parenchyma. Linear enh ancement in the right lentiform nucleus may represent developmental venous anomaly. IMPRESSION: 1. Interval removal of a ventriculoperitoneal shunt catheter. Redemonstration of pneumocephalus. 2. No pathologic enhancement of the brain parenchyma. 3. Stable post surgical change in the right frontal lobe. 4. Stable postoperative changes of the right scalp and calvarium. Transcribed Date/Time: 03/05/2019 2:21 PM
[2019-03-05] MEDS: Melatonin 3 MG TAB PO SCH (20:25)
[2019-03-06] MEDS: Dexamethasone 4 MG TAB PO SCH ×4 (01:58→18:11)
[2019-03-06 07:47] LABS: Phosphorus 3.5 mg/dL (2.3-4.7)
[2019-03-06 07:49] LABS: Anion Gap 11 mmol/L (10-20); BUN (Urea Nitrogen) 16 mg/dL (8.9-20.6); Calc. Creatinine Clearance 209 mL/min (70-130); Calcium 9.5 mg/dL (7.8-10.44); Carbon Dioxide 29 mmol/L (22-29); Chloride 103 mmol/L (98-107); Estimated GFR-MDRD Greater than 90; Glucose 97 mg/dL (70-105); Magnesium 2.2 mg/dL (1.6-2.6); Potassium 4.1 mmol/L (3.5-5.1); Sodium 139 mmol/L (136-145)
--- NOTE | 2019-03-06 08:05 | PRG ---
DATE OF SERVICE: 03/06/2019 I saw Anita Olivier on rounds this morning. He is resting comfortably in his hospital bed. Yesterday, a CT scan of the brain was done for some reason. Overnight, I see no fevers recorded. This morning, Mr. Olivier has a stable neurological examination. He opens his eyes and communicates when I entered the room. He has a left hemiparesis involving the face and arm more so than the leg. His incision is dry and well approximated. The sutures are in place. There is a cerebral spinal fluid under the scalp flap as noted yesterday. The scalp flap is not tensed at all. There is no pressure and there is no oozing of fluid that I can appreciate. A CT scan of the brain is completely as expected yesterday. The skull was reapproximated. The brain is out to the side of the skull. There is spinal fluid under the scalp flap just as stated yesterday. The patients with replacement of the skull flap will have a pseudomeningocele for some time after that operation. If he becomes tense and drains, then often a ventriculoperitoneal shunt might be needed. If he does not become tense or drain, then the likelihood of shunt is quite low. The scalp will eventually reapproximate itself to the skull. The CSF will go away if we wait long enough. I explained this to the patient once again today, and we will observe this fluid collection closely over time. Decrease in any tension on closure, he can sleep with his head of his bed up. I am optimistic that no further surgery will be necessary. We will leave the stitches in for 3 weeks and on removal, he will need aggressive Betadine treatment before being taken out. He can be placed in inpatient rehabilitation at any time. He is safe for discharge. Job ID: [id number]
[2019-03-06] MEDS: levETIRAcetam 500 mg/5 ml Oral Solution PO SCH (09:53)
[2019-03-06] MEDS: Citalopram 20 MG TAB PO SCH (09:54)
[2019-03-06] MEDS: Polyethylene Glycol 3350 17 GM Packet PO SCH (09:54)
[2019-03-06] MEDS: Famotidine 20 MG TAB PO SCH (09:55)
[2019-03-06] MEDS: Lisinopril 5 MG TAB PO SCH (09:55)
[2019-03-06] MEDS: Amlodipine 10 MG TAB PO SCH (09:56)
[2019-03-06] MEDS: Sodium Chloride 0.9% 1,000 ML IV SCH (12:11)
[2019-03-06] MEDS ORDERED: hydrALAZINE 25 MG TAB PER TUBE PRN (15:46)
[2019-03-06] MEDS ORDERED: Milk Of Magnesia 30 ML UDCUP PO PRN (15:46)
[2019-03-06] MEDS ORDERED: cloNIDine 0.1 MG TAB PER TUBE PRN (15:46)
[2019-03-06] MEDS ORDERED: cloNIDine 0.1 MG TAB FS SCH (16:00)
[2019-03-06 16:14] VITALS: TEMP 98.7
[2019-03-06 16:35] VITALS: BP 153/103
[2019-03-06] MEDS ORDERED: Scopolamine 1.5 mg/72 hour Patch TD SCH (18:00)
[2019-03-06] MEDS ORDERED: Metamucil PACK PER TUBE SCH (21:00)
[2019-03-06] MEDS ORDERED: Lisinopril 5 MG TAB PER TUBE SCH (21:00)
[2019-03-06] MEDS ORDERED: levETIRAcetam 500 mg/5 ml Oral Solution PER TUBE SCH (21:00)
[2019-03-06] MEDS ORDERED: Melatonin 3 MG TAB PO SCH (21:00)
--- NOTE | 2019-03-07 05:25 | DIS ---
DATE OF ADMISSION: 03/01/2019 DATE OF DISCHARGE: 03/06/2019 REASON FOR ADMISSION: Cranial defect, status post craniectomy for intracerebral hemorrhage. HOSPITAL COURSE: The patient was taken to the operating room for replacement of his squaxin bone flap. This had been removed in November for intracerebral hemorrhage to manage his ICP. His swelling had gone down, and he was brought back to the hospital for reattachment of his bone flap. An external ventricular drain was needed to decompress the ventricular system and get the bone on safely. The drain was removed on postoperative day 1 because of normal intracranial pressures. His hospital course was completely uneventful. 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 CONDITION ON DISCHARGE: The patient has no emergency condition and is stable for discharge to inpatient rehabilitation. DISMISSAL MEDICATIONS: See list. ACTIVITY RESTRICTIONS: The patient no longer is in need of a helmet. WOUND CARE: Sutures can be removed three weeks after his operation. They need to be prepped with Betadine before removal. I would not remove them before then. FOLLOWUP ARRANGEMENTS: The patient will be contacted by our after school coordinator with the date and time of his followup appointment. Job ID: [id number]
[2019-03-07] MEDS ORDERED: Amlodipine 10 MG TAB PER TUBE SCH (09:00)
[2019-03-07] MEDS ORDERED: Citalopram 20 MG TAB PER TUBE SCH (09:00)
[2019-03-07] MEDS ORDERED: Polyethylene Glycol 3350 17 GM Packet PER TUBE SCH (09:00)
[2019-03-07] MEDS ORDERED: Famotidine 20 MG TAB PER TUBE SCH (09:00)
[2019-03-10] MEDS ORDERED: cloNIDine 0.1mg/24 Hour PATCH TD SCH (09:00)
== END 2019-03-06 19:16 | DRG 982 ==
LOC: SURG A 10:14 → CCU 16:00 → 2SE 03-02 17:54
PROVIDERS: ADMIT Neurological Surgery; ATTEND Neurological Surgery
PROC: 009600Z Drainage of Cerebral Ventricle with Drainage Device, Open Approach (ICD-10-PCS; principal; 2019-03-01)
PROC: 0NB00ZZ Excision of Skull, Open Approach (ICD-10-PCS; 2019-03-01)
DX: Z42.8 Encounter for other plastic and reconstructive surgery following medical procedure or healed injury (principal); I69.154 Hemiplegia and hemiparesis following nontraumatic intracerebral hemorrhage affecting left non-dominant side; S06.890A Other specified intracranial injury without loss of consciousness, initial encounter; I10 Essential (primary) hypertension; Z79.899 Other long term (current) drug therapy; Z87.891 Personal history of nicotine dependence; G96.19 Other disorders of meninges, not elsewhere classified
CPT/HCPCS: 36415; 36416; 70450; 70470; 80048; 83735; 84100; 85025; 85610; 85730; C1713; J0360; J0690; J1100; J2001; J2270; J2405; J3010; J3370; J3490; J8540; Q9967; S0028

== ENCOUNTER 2019-04-21 15:54 | Emergency (ER) | payer BC ==
[~2019-04-21 15:54] MED LIST: Iopamidol-370 76% 500 ML 1 ML ONE
[2019-04-21 16:33] LABS: #Basophils 0.1 thou/uL (0.0-0.2); #Monocytes 0.5 thou/uL (0.11-0.59); #Neutrophils 3.8 thou/uL (1.40-6.50); %Basophils 1.6 % (0.0-1.0); %Eosinophils 0.5 % (0.0-10.0); %Lymphocytes 30.7 % (21.0-51.0); %Monocytes 8.1 % (0.0-10.0); %Neutrophils 59.1 % (42.0-75.0); Hemoglobin 14.8 g/dL (14.0-18.0); Mean Corpuscular HGB CONC 31.2 g/dL (32.0-36.0); Mean Corpuscular Hemoglobin 28.4 pg (27.0-31.0); Mean Corpuscular Volume 90.9 fL (78.0-98.0); Mean Platelet Volume 8.7 fL (7.4-10.4); Platelet Count 268 thou/uL (130-400); RBC Distribution Width 11.7 % (11.5-14.5); Red Blood Cell (RBC) Count 5.22 mill/uL (4.70-6.10); White Blood Cell (WBC) Count 6.4 thou/uL (4.8-10.8)
[2019-04-21 16:37] LABS: Bacteria/HPF None Seen HPF (None Seen); Bilirubin Negative (Negative); Blood, Urine Negative (Negative); Calcium Oxalate Crystals Rare HPF (None Seen); Clarity Clear (Clear); Glucose, Urine (Dipstick) Normal (Negative); Leukocyte 250 Leu/uL (Negative); Mucous/LPF 2+ LPF (<2+); Nitrite Negative (Negative); Protein, Urine (Dipstick) 30 mg/dL (Neg-Trace); RBC/HPF 0-3 HPF (0-3); Squamous Epithelial 0-3 HPF (0-3)
[2019-04-21 16:50] LABS: ALT (SGPT) 14 U/L (8-55); AST (SGOT) 11 U/L (5-34); Alkaline Phosphatase 116 U/L (40-110); Anion Gap 16 mmol/L (10-20); BUN (Urea Nitrogen) 10 mg/dL (8.9-20.6); Bilirubin, Total 0.9 mg/dL (0.2-1.2); Calc. Creatinine Clearance 0 mL/min (70-130); Calcium 9.5 mg/dL (7.8-10.44); Carbon Dioxide 28 mmol/L (22-29); Chloride 107 mmol/L (98-107); Estimated GFR-MDRD Greater than 90; Globulin 3.3 g/dL (2.4-3.5); Glucose 90 mg/dL (70-105); Lipase 20 U/L (8-78); Potassium 3.4 mmol/L (3.5-5.1); Protein, Total 7.3 g/dL (6.0-8.3); Sodium 148 mmol/L (136-145)
--- NOTE | 2019-04-21 17:35 | CT ---
CT ABDOMEN AND PELVIS WITH IV CONTRAST: 04/21/19 HISTORY: Abdominal pain and pain surrounding gastrostomy tube site. COMPARISON: 12/23/18. FINDINGS: Dependent bibasilar atelectasis is noted. The liver, spleen, pancreas, bilateral adrenal glands, kidneys, and abdominal aorta demonstrate a nor mal CT appearance. The urinary bladder is decompressed and not well assessed on this exam. The prostate gland is mildly enlarged measuring 5.9 cm in transverse dimension with mild heterogeneit y present. Gastrostomy tube is noted in place within the body of the stomach and the balloon on the gastrostomy tube is within the lumen of the stomach. There is no fluid or fluid collection surrounding the gastro stomy tube site. However, just medial to the gastrostomy tube and adjacent to the midline, there is f ocal area of skin thickening with area of ill-defined inflammatory changes present. This could be rel ated to small phlegmon with adjacent overlying skin thickening. There is no fluid collection seen to suggest an abscess. Again, this is located medial to the gastrostomy tube site. No free fluid, fluid collection, or lymphadenopathy is seen in the abdomen or pelvis. The appendix is normal in caliber. Small bowel loops are also normal in caliber. There has been no other interval change when compared to the prior exam. IMPRESSION: 1. Area of skin thickening and probable underlying phlegmon seen within the subcutaneous soft ti ssues left anterior upper abdominal wall adjacent to the midline but medial to the level of the gastr ostomy tube insertion site. 2. No acute intra-abdominal findings are seen. 3. Mild enlargement of the prostate gland. POS: PEDRO LUIS
[2019-04-21] MEDS ORDERED: Lidocaine 1% w/Epinephrine 1:100K 20 ML VIAL ONE (17:42)
== END 2019-04-21 18:29 | disposition home or self-care (01) ==
LOC: ERS 15:54
DX: L02.211 Cutaneous abscess of abdominal wall (principal); L03.311 Cellulitis of abdominal wall; N39.0 Urinary tract infection, site not specified; I10 Essential (primary) hypertension; D64.9 Anemia, unspecified; F32.9 Major depressive disorder, single episode, unspecified; Z87.891 Personal history of nicotine dependence; Z86.73 Personal history of transient ischemic attack (TIA), and cerebral infarction without residual deficits; Z79.899 Other long term (current) drug therapy
CPT/HCPCS: 10060; 74177; 80053; 81003; 81015; 83690; 85025; 94760; Q9967

== ENCOUNTER 2019-06-21 14:21 | Emergency (ER) | payer BC, OTHER, SELFPAY ==
[2019-06-21] MEDS ORDERED: Acetaminophen 325 MG TAB ONE (15:00)
== END 2019-06-21 15:54 | disposition home or self-care (01) ==
LOC: ERS 14:21
DX: S76.312A Strain of muscle, fascia and tendon of the posterior muscle group at thigh level, left thigh, initial encounter (principal); I10 Essential (primary) hypertension; F32.9 Major depressive disorder, single episode, unspecified; Z87.891 Personal history of nicotine dependence; Z79.899 Other long term (current) drug therapy; X58.XXXA Exposure to other specified factors, initial encounter
CPT/HCPCS: 99283

== ENCOUNTER 2019-07-20 12:35 | Emergency (ER) | payer SELFPAY ==
[2019-07-20 13:34] LABS: #Basophils 0.1 thou/uL (0.0-0.2); #Monocytes 0.5 thou/uL (0.11-0.59); #Neutrophils 3.5 thou/uL (1.40-6.50); %Basophils 2.2 % (0.0-1.0); %Eosinophils 0.7 % (0.0-10.0); %Lymphocytes 32.3 % (21.0-51.0); %Monocytes 8.4 % (0.0-10.0); %Neutrophils 56.5 % (42.0-75.0); Hemoglobin 14.6 g/dL (14.0-18.0); Mean Corpuscular HGB CONC 31.4 g/dL (32.0-36.0); Mean Corpuscular Hemoglobin 29.7 pg (27.0-31.0); Mean Corpuscular Volume 94.7 fL (78.0-98.0); Mean Platelet Volume 9.1 fL (7.4-10.4); Platelet Count 217 thou/uL (130-400); RBC Distribution Width 11.6 % (11.5-14.5); Red Blood Cell (RBC) Count 4.91 mill/uL (4.70-6.10); White Blood Cell (WBC) Count 6.2 thou/uL (4.8-10.8)
[2019-07-20 13:56] LABS: ALT (SGPT) 9 U/L (8-55); AST (SGOT) 9 U/L (5-34); Albumin 3.8 g/dL (3.5-5.0); Alkaline Phosphatase 101 U/L (40-110); Anion Gap 15 mmol/L (10-20); BUN (Urea Nitrogen) 7 mg/dL (8.9-20.6); Bilirubin, Total 0.6 mg/dL (0.2-1.2); Calc. Creatinine Clearance 0 mL/min (70-130); Calcium 9.6 mg/dL (7.8-10.44); Carbon Dioxide 24 mmol/L (22-29); Chloride 109 mmol/L (98-107); Estimated GFR-MDRD Greater than 90; Globulin 2.8 g/dL (2.4-3.5); Glucose 89 mg/dL (70-105); Potassium 3.7 mmol/L (3.5-5.1); Protein, Total 6.6 g/dL (6.0-8.3); Sodium 144 mmol/L (136-145)
--- NOTE | 2019-07-20 14:40 | RAD ---
PORTABLE CHEST 1 VIEW: DATE: 07/20/2019. TIME: 1:16 PM. HISTORY: Dizziness and photophobia. COMPARISON: 03/08/2019. FINDINGS: The heart size is prominent but stable. No lobar consolidation, pneumothoraces, jaswant pulmonary kenton a, or pleural effusions are seen. IMPRESSION: No acute process. POS: ANJU
--- NOTE | 2019-07-20 14:54 | CT ---
BRAIN CT WITHOUT IV CONTRAST: HISTORY: Headache which started months ago. COMPARISON: 03/02/2019. FINDINGS: The previously noted right ventriculostomy tube has been removed. There is some persistent dilatatio n of the right lateral ventricle including the frontal horn and temporal horn which actually appeared to be slightly more dilated than on 03/05/2019 study. There are some patchy low-attenuation changes in the right frontal cortex and also in the right centrum semiovale and right basal ganglia regions w ith some associated volume loss. There is a 0.4 cm diameter punctate focus of slightly more fatty de nsity at the anterior aspect of the right frontal horn at the site of the previous ventriculostomy tu be. This was present and has not significantly changed when compared to the 11/2018 CT. No mass o r acute hemorrhage. There is approximately 0.2 cm of midline shift to the right secondary to the rig ht-sided brain volume loss. IMPRESSION: Extensive right-sided craniotomy changes with some right-sided patchy low attenuation and right-sided brain volume loss with some dilatation of the right lateral ventricle, frontal horn, and temporal ho rn, somewhat more marked than on the prior study. No evidence for mass or acute hemorrhage or other significant new process. POS: [facility]
[2019-07-20] MEDS ORDERED: Ondansetron ODT 4 MG TAB ONE (14:59)
--- NOTE | 2019-07-25 14:11 | EKG ---
Test Reason : Blood Pressure : / mmHG Vent. Rate : 079 BPM Atrial Rate : 079 BPM P-R Int : 176 ms QRS Dur : 078 ms QT Int : 382 ms P-R-T Axes : 058 035 053 degrees QTc Int : 438 ms Normal sinus rhythm Normal ECG Confirmed by BUBBA BOSS DO ([id number]), editor [employer] journal ESTHER ESTRADA ([id number]) on 07/25/2019 2:10:42 PM Referred By: Confirmed By:BUBBA BOSS DO
== END 2019-07-20 15:17 | disposition home or self-care (01) ==
LOC: ERS 12:35
DX: R51 Headache (principal); I10 Essential (primary) hypertension; Z86.73 Personal history of transient ischemic attack (TIA), and cerebral infarction without residual deficits; Z87.891 Personal history of nicotine dependence; Z79.899 Other long term (current) drug therapy
CPT/HCPCS: 36415; 70450; 71045; 80053; 84484; 85025; 93005; Q0162

== ENCOUNTER 2020-02-07 08:13 | Emergency (ER) | payer SELFPAY ==
[2020-02-07] MEDS ORDERED: Ketorolac Tromethamine 30 MG/ML VIAL ONE (08:42)
[2020-02-07] MEDS ORDERED: Acetaminophen 500 MG TAB ONE (08:42)
--- NOTE | 2020-02-07 09:11 | RAD ---
XR Elbow Lt 2 View History: Fall Comparison: None. Findings: Exam is limited due to only 2 images and not true views. Intra-articular fracture through t he olecranon process. Large joint effusion. Impression: Intra-articular olecranon fracture with minimal distraction. Large joint effusion. Radial head evaluation is limited. Follow-up 4 views recommended to evaluate the radial head and neck.
--- NOTE | 2020-02-07 09:12 | RAD ---
XR Shoulder Lt 3 View STANDARD History: Pain. Fall Comparison: None. Findings: Likely nondisplaced fracture through the surgical neck of the humerus. Visualized ribs are intact. Impression: Practically nondisplaced fracture surgical neck of the humerus.
--- NOTE | 2020-02-07 09:13 | RAD ---
XR Wrist 3 Lt View STANDARD History: Fall Comparison: None. Findings: Severe demineralization. Dorsal subluxation of distal ulna. No definite acute fracture. Impression: 1. Severe osseous demineralization without acute fracture. 2. Chronic subluxation of the distal ulna.
[2020-02-07] MEDS ORDERED: Morphine 4 MG/ML VIAL ONE (09:47)
[2020-02-07] MEDS ORDERED: Morphine 2 MG/ML VIAL ONE (09:47)
--- NOTE | 2020-02-16 17:52 | EKG ---
Test Reason : Blood Pressure : / mmHG Vent. Rate : 080 BPM Atrial Rate : 080 BPM P-R Int : 180 ms QRS Dur : 086 ms QT Int : 356 ms P-R-T Axes : 052 034 050 degrees QTc Int : 410 ms Normal sinus rhythm Normal ECG Confirmed by THU ALEJANDRE, AMAIRANI ([id number]), fashion editor ANGEL GIBBS ([id number]) on 02/16/2020 5:52:02 PM Referred By: Confirmed By:AMAIRANI ANDINO MD
== END 2020-02-07 10:29 | disposition home or self-care (01) ==
LOC: ERS 08:13
DX: S42.215A Unspecified nondisplaced fracture of surgical neck of left humerus, initial encounter for closed fracture (principal); S52.032A Displaced fracture of olecranon process with intraarticular extension of left ulna, initial encounter for closed fracture; S52.122A Displaced fracture of head of left radius, initial encounter for closed fracture; I10 Essential (primary) hypertension; Z87.891 Personal history of nicotine dependence; Z79.899 Other long term (current) drug therapy; W18.30XA Fall on same level, unspecified, initial encounter
CPT/HCPCS: 29105; 36416; 93005; 96372; J1885; J2270

== ENCOUNTER 2020-02-19 09:21 | Emergency (ER) | payer SELFPAY ==
--- NOTE | 2020-02-19 09:59 | RAD ---
RADIOGRAPH CHEST 1 VIEW: DATE: 02/19/2020 HISTORY: 44-year-old male with acute chest trauma from fall FINDINGS: There is no airspace density, pulmonary edema, or pneumothorax. The lateral costophrenic angles are n ot effaced. No clavicular fracture identified. IMPRESSION: No acute pulmonary findings.
[2020-02-19] MEDS ORDERED: Lorazepam 2 MG/ML VIAL ONE (10:01)
--- NOTE | 2020-02-19 10:02 | RAD ---
LEFT SHOULDER 3 VIEWS: Date: 02/19/2020 HISTORY: Injury, left shoulder pain. FINDINGS/IMPRESSION: Comparison made with 02/07/2020. The fracture involving the surgical neck of the humerus is again seen with minimal displacement. No s ignificant interval healing is identified. POS: OFF
[2020-02-19] MEDS ORDERED: Lisinopril 10 MG TAB ONE (10:03)
[2020-02-19 10:08] LABS: #Basophils 0.1 thou/uL (0.0-0.2); #Lymphocytes 1.8 thou/uL (1.20-3.40); #Monocytes 0.6 thou/uL (0.11-0.59); %Basophils 1.2 % (0.0-1.0); %Eosinophils 0.6 % (0.0-10.0); %Lymphocytes 24.2 % (21.0-51.0); %Monocytes 8.4 % (0.0-10.0); %Neutrophils 65.7 % (42.0-75.0); Hemoglobin 15.7 g/dL (14.0-18.0); Mean Corpuscular HGB CONC 31.2 g/dL (32.0-36.0); Mean Corpuscular Hemoglobin 29.2 pg (27.0-31.0); Mean Corpuscular Volume 93.8 fL (78.0-98.0); Mean Platelet Volume 8.3 fL (7.4-10.4); Platelet Count 242 thou/uL (130-400); RBC Distribution Width 11.4 % (11.5-14.5); Red Blood Cell (RBC) Count 5.38 mill/uL (4.70-6.10); White Blood Cell (WBC) Count 7.5 thou/uL (4.8-10.8)
[2020-02-19 10:34] LABS: ALT (SGPT) 10 U/L (8-55); AST (SGOT) 10 U/L (5-34); Alkaline Phosphatase 127 U/L (40-110); Anion Gap 13 mmol/L (10-20); BUN (Urea Nitrogen) 9 mg/dL (8.9-20.6); Bilirubin, Total 0.7 mg/dL (0.2-1.2); Calc. Creatinine Clearance 0 mL/min (70-130); Calcium 9.6 mg/dL (7.8-10.44); Carbon Dioxide 27 mmol/L (22-29); Chloride 107 mmol/L (98-107); Estimated GFR-MDRD Greater than 90; Globulin 3.6 g/dL (2.4-3.5); Glucose 84 mg/dL (70-105); Magnesium 2.1 mg/dL (1.6-2.6); Potassium 3.7 mmol/L (3.5-5.1); Protein, Total 7.6 g/dL (6.0-8.3); Sodium 143 mmol/L (136-145)
--- NOTE | 2020-02-19 10:37 | CT ---
EXAM: CT of the cervical spine without contrast HISTORY: Seizure with fall. Head trauma and neck pain. COMPARISON: None TECHNIQUE: Multiple contiguous axial images were obtained in a CT of the cervical spine without contr ast. Sagittal and coronal reformats were performed. FINDINGS: The vertebral bodies and intervertebral discs demonstrate normal height and alignment witho ut fracture or subluxation. No degenerative changes are present. No prevertebral soft tissue swelling is seen. The posterior facets are well aligned. Normal alignment of the skull base with the cervical spine is seen. The lung apices and cervical soft tissues are unremarkable. IMPRESSION: No evidence of acute osseous abnormality of the cervical spine.
--- NOTE | 2020-02-19 11:09 | CT ---
CT BRAIN NONCONTRAST: DATE: 02/19/2020 HISTORY: 44-year-old male status post acute head trauma due to fall due to seizure COMPARISON: 11/14/2019 FINDINGS: Old right frontal and right temporal parietal craniotomy changes. Encephalomalacia and gliosis involving right frontal lobe, right basal ganglia, right caudate nucleus , right thalamus, and right external and internal capsule, with associated ex vacuo dilation of right lateral ventricle, especially temporal horn and frontal horn. Associated wallerian degeneration of right cerebral peduncle and right side of antonio. Linear band of hyperdensity along the right external capsule, probably representing dystrophic calcif ication. Slight ex vacuo shift of the septum pellucidum from left to right. No acute intra-axial or extra-axial hemorrhage, or any other extra-axial fluid collection. No mass effect. No acute calvarial fracture. Visualized paranasal sinuses and bilateral tympanomastoi d cavities are grossly clear. No interval change. IMPRESSION: 1) old insults involving right frontal lobe, right deep suh nuclei (including corpus striatum and th alamus), and overlying old right craniotomy changes. 2) no acute intracranial findings.
== END 2020-02-19 12:10 | disposition home or self-care (01) ==
LOC: ERS 09:21
DX: R56.9 Unspecified convulsions (principal); I10 Essential (primary) hypertension; Z86.73 Personal history of transient ischemic attack (TIA), and cerebral infarction without residual deficits; Z87.891 Personal history of nicotine dependence; Z79.899 Other long term (current) drug therapy
CPT/HCPCS: 36415; 70450; 71045; 72125; 80053; 83735; 84484; 85025; 93005; 96374; J2060

== ENCOUNTER 2021-12-14 10:17 | Observation (INO) | payer BC, MEDICAID, OTHER ==
[2021-12-14 11:10] LABS: Hemoglobin 14.7 g/dL (14.0-18.0); Mean Corpuscular HGB CONC 30.8 g/dL (32.0-36.0); Mean Corpuscular Hemoglobin 29.4 pg (27.0-31.0); Mean Corpuscular Volume 95.4 fL (78.0-98.0); Mean Platelet Volume 8.4 fL (7.4-10.4); Platelet Count 224 thou/uL (130-400); RBC Distribution Width 11.5 % (11.5-14.5); Red Blood Cell (RBC) Count 4.99 mill/uL (4.70-6.10); White Blood Cell (WBC) Count 5.1 thou/uL (4.8-10.8)
[2021-12-14 11:31] LABS: ALT (SGPT) 31 U/L (8-55); AST (SGOT) 18 U/L (5-34); Alkaline Phosphatase 123 U/L (40-110); Anion Gap 13 mmol/L (10-20); BUN (Urea Nitrogen) 8 mg/dL (8.9-20.6); Bilirubin, Total 0.8 mg/dL (0.2-1.2); CRP (Inflammatory) 1.74 mg/dL (= or < 0.5); Calc. Creatinine Clearance 0 mL/min (70-130); Calcium 9.4 mg/dL (7.8-10.44); Carbon Dioxide 27 mmol/L (22-29); Chloride 103 mmol/L (98-107); Estimated GFR 86; Glucose 101 mg/dL (70-105); Potassium 3.9 mmol/L (3.5-5.1); Sodium 139 mmol/L (136-145)
[2021-12-14 12:03] LABS: Band 7 % (5-11); Eosinophils 3 % (0-10); Lymphocytes 25 % (21-51); MDiff Complete? YES; Monocytes 17 % (0-10); Neutrophil 43 % (42-75); Platelet Morphology Comment Appears Adequate; RBC Morphology Normal; Reactive Lymphocytes 5 % (0-10)
[2021-12-14] MEDS ORDERED: Acetaminophen 325 MG TAB PO PRN (13:47)
[2021-12-14 14:27] LABS: Troponin I Less than 0.010 ng/mL (< 0.028)
[2021-12-14 14:46] LABS: Bilirubin Negative (Negative); Blood, Urine Negative (Negative); Clarity Clear (Clear); Glucose, Urine (Dipstick) Normal (Negative); Ketone, Urine Negative (Negative); Leukocyte Negative Leu/uL (Negative); Nitrite Negative (Negative); Protein, Urine (Dipstick) 20 mg/dL (Neg-Trace); Specific Gravity, Urine 1.031 (1.002-1.036); Urobilinogen Normal mg/dL (Less than 2); pH, Urine 5.5 (5.0-9.0)
[2021-12-14 15:18] VITALS: BMI 42.0
[2021-12-14] MEDS ORDERED: Iopamidol-370 76% 500 ML 1 ML ONE (15:30)
[2021-12-14 17:41] LABS: Troponin I Less than 0.010 ng/mL (< 0.028)
[2021-12-14] MEDS: Atorvastatin Calcium 40 MG TAB PO SCH (20:11)
[2021-12-15] MEDS ORDERED: Albuterol 200 PUFF (6.7GM INHALER) INH PRN (00:40)
[2021-12-15] MEDS ORDERED: Benzonatate 100 MG CAP PO PRN (00:40)
[2021-12-15 05:35] LABS: Hemoglobin A1c 5.5 % (4.0-6.0)
[2021-12-15 05:39] LABS: Cardiac Risk 3.8 (Less than 4.5)
[2021-12-15] MEDS ORDERED: Lisinopril 20 MG TAB PO SCH ×2 (09:00→09:30)
[2021-12-15] MEDS ORDERED: Amlodipine 10 MG TAB PER TUBE SCH (09:00)
[2021-12-15] MEDS ORDERED: Citalopram 20 MG TAB PER TUBE SCH (09:00)
[2021-12-15] MEDS ORDERED: cloNIDine 0.2 MG TAB PO SCH (09:30)
[2021-12-15] MEDS ORDERED: Amlodipine 10 MG TAB PO SCH (09:30)
[2021-12-15] MEDS ORDERED: Citalopram 20 MG TAB PO SCH (09:30)
[2021-12-15] MEDS ORDERED: levETIRAcetam 500 MG TAB PO SCH (09:30)
[2021-12-15] MEDS: Aspirin 81 mg Enteric Coated Tablet PO SCH (10:42)
[2021-12-15] MEDS: Heparin 5,000 UNITS/ML VIAL SC SCH (21:19)
[2021-12-15] MEDS: NIRMATRELVIR 150 MG/RITONAVIR 100 MG PO SCH (21:20)
[2021-12-15] MEDS: cloNIDine 0.2 MG TAB PO SCH (21:21)
[2021-12-15] MEDS: levETIRAcetam 500 MG TAB PO SCH (21:21)
[2021-12-15] MEDS: Atorvastatin Calcium 40 MG TAB PO SCH (21:21)
[2021-12-16] MEDS ORDERED: Citalopram 20 MG TAB PO SCH (09:00)
[2021-12-16] MEDS ORDERED: Amlodipine 10 MG TAB PO SCH (09:00)
[2021-12-16] MEDS ORDERED: Lisinopril 20 MG TAB PO SCH ×2 (09:00)
[2021-12-16] MEDS: NIRMATRELVIR 150 MG/RITONAVIR 100 MG PO SCH (09:14)
[2021-12-16] MEDS: levETIRAcetam 500 MG TAB PO SCH (09:15)
[2021-12-16] MEDS: cloNIDine 0.2 MG TAB PO SCH (09:15)
[2021-12-16] MEDS: Aspirin 81 mg Enteric Coated Tablet PO SCH (09:15)
[2021-12-16] MEDS: Heparin 5,000 UNITS/ML VIAL SC SCH (09:17)
[2021-12-16 11:58] VITALS: BP 125/82; TEMP 98
== END 2021-12-16 13:41 | disposition home health service (06) ==
LOC: ERS 10:17 → ERHOLD 13:02 → 2SW 14:33
PROVIDERS: ADMIT Internal Medicine; ATTEND Nurse Practitioner Acute Care
DX: R42 Dizziness and giddiness (principal); U07.1 COVID-19; I12.9 Hypertensive chronic kidney disease with stage 1 through stage 4 chronic kidney disease, or unspecified chronic kidney disease; N18.2 Chronic kidney disease, stage 2 (mild); D63.1 Anemia in chronic kidney disease; G40.909 Epilepsy, unspecified, not intractable, without status epilepticus; E78.5 Hyperlipidemia, unspecified; I69.154 Hemiplegia and hemiparesis following nontraumatic intracerebral hemorrhage affecting left non-dominant side; E04.2 Nontoxic multinodular goiter; G47.30 Sleep apnea, unspecified; I08.1 Rheumatic disorders of both mitral and tricuspid valves; E66.01 Morbid (severe) obesity due to excess calories; Z68.41 Body mass index [BMI] 40.0-44.9, adult; Z79.82 Long term (current) use of aspirin; Z79.899 Other long term (current) drug therapy
CPT/HCPCS: 36415; 36416; 70450; 70496; 70498; 70551; 71045; 80053; 80061; 81003; 82550; 83036; 83880; 84443; 84484; 85025; 86140; 93005; 93306; G0378; J1644; Q9967; U0003; U0005

== ENCOUNTER 2022-07-15 17:57 | Emergency (ER) | payer OTHER ==
[2022-07-15 18:57] LABS: #Basophils 0.1 thou/uL (0.0-0.2); #Lymphocytes 1.9 thou/uL (1.20-3.40); #Monocytes 0.7 thou/uL (0.11-0.59); #Neutrophils 5.8 thou/uL (1.40-6.50); %Basophils 1.1 % (0.0-1.0); %Eosinophils 0.5 % (0.0-10.0); %Lymphocytes 22.5 % (21.0-51.0); %Monocytes 8.2 % (0.0-10.0); %Neutrophils 67.7 % (42.0-75.0); Mean Corpuscular HGB CONC 29.4 g/dL (32.0-36.0); Mean Corpuscular Hemoglobin 28.5 pg (27.0-31.0); Mean Corpuscular Volume 96.8 fl (78.0-98.0); Mean Platelet Volume 8.1 fL (7.4-10.4); Platelet Count 249 10x3/uL (130-400); RBC Distribution Width 11.8 % (11.5-14.5); Red Blood Cell (RBC) Count 4.91 mill/uL (4.70-6.10); White Blood Cell (WBC) Count 8.5 10x3/uL (4.8-10.8)
[2022-07-15 19:15] LABS: Hypochromia SLIGHT = 6-15 cells (100X) (0-5/hpf); MDiff Complete? YES; Platelet Morphology Comment Appears Adequate; Polychromasia SLIGHT = 2-3 cells (100X) (0-2/hpf)
[2022-07-15 19:20] LABS: ALT (SGPT) 18 U/L (8-55); AST (SGOT) 10 U/L (5-34); Albumin 3.9 g/dL (3.5-5.0); Alkaline Phosphatase 114 U/L (40-110); Anion Gap 13 mmol/L (10-20); BUN (Urea Nitrogen) 11 mg/dL (8.9-20.6); Bilirubin, Total 0.7 mg/dL (0.2-1.2); Calc. Creatinine Clearance 0 mL/min (70-130); Calcium 9.5 mg/dL (7.8-10.44); Carbon Dioxide 26 mmol/L (22-29); Chloride 108 mmol/L (98-107); Estimated GFR 92; Globulin 3.4 g/dL (2.4-3.5); Glucose 85 mg/dL (70-105); Potassium 3.8 mmol/L (3.5-5.1); Protein, Total 7.3 g/dL (6.0-8.3); Sodium 143 mmol/L (136-145)
[2022-07-15] MEDS ORDERED: Furosemide 40 MG/4 ML VIAL ONE (20:52)
[2022-07-15 21:51] LABS: Bacteria/HPF None Seen HPF (None Seen); Bilirubin Negative (Negative); Blood, Urine 2+ (Negative); Clarity Clear (Clear); Glucose, Urine (Dipstick) Normal (Negative); Ketone, Urine Negative (Negative); Leukocyte 75 Leu/uL (Negative); Nitrite Negative (Negative); Protein, Urine (Dipstick) Negative (Neg-Trace); RBC/HPF 21-50 HPF (0-3); Specific Gravity, Urine 1.025 (1.002-1.036); Squamous Epithelial 0-3 HPF (0-3); Urobilinogen Normal mg/dL (Less than 2); pH, Urine 5.5 (5.0-9.0)
== END 2022-07-15 22:56 | disposition home or self-care (01) ==
LOC: ERS 17:57
DX: N39.0 Urinary tract infection, site not specified (principal); R60.0 Localized edema; Z87.891 Personal history of nicotine dependence
CPT/HCPCS: 36415; 71045; 80053; 81003; 81015; 83880; 84484; 85025; 87086; 93005; 96374; J1940